=== PATIENT | male | born 1995 | race Caucasian/White ===

== ENCOUNTER 2024-12-28 12:34 | Outpatient (OUT) | payer OTHER, SELFPAY ==
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
== END 2024-12-28 12:35 | disposition home or self-care (01) ==
PROVIDERS: Visit Provider Anesthesiology
DX: M25.551 Pain in right hip (principal)
CPT/HCPCS: G0463

== ENCOUNTER 2025-03-31 13:04 | Outpatient (OUT) | payer OTHER, SELFPAY ==
--- OUTSIDE RECORDS SUMMARY | 2025-03-31 13:07 | XMS_ITS | Clinical Summary ---
Author Organization [facility] Address [address] [place] [id number] Care Team Providers Care Hydraulic Plumber Helper Name Role Phone SamanKimi puga Primary Care Provider [phone] Jeannie Velasquez DIRECTOR SALES.FUNDING ANALYST Unavailable [phone] Sue Rubio DIRECTOR SALES.FUNDING ANALYST Unavailable [phone] Allergies Active Allergy Reactions Criticality Noted Date Comments Ondansetron Hives 09/02/2024 Medications gabapentin (NEURONTIN) 300 mg capsuleIndicati ons:Chronic pain of right knee Take 1 capsule by mouth two times a day for 90 days. 180 capsule 09/23/2023 Active cloNIDine HCl (CATAPRES) 0.1 mg tablet Take 0.1 mg by mouth three times a day. Active Active Problems Problem Noted Date Diagnosed Date Severe opioid use disorder 12/17/201807/08 Closed fracture of ankle 11/24/2010 023 Sprain of carpal (joint) of wrist 07/12/2006 07/08/2023 Allergic rhinitis 01/16/2005 07/08/2023 Overview (07/08/2023): cause unspecified [id number] Inguinal hernia 10/25/2003 07/08/2023 Overview (07/08/2023): updated for 06/17 reg imo load Scrotal varices 10/25/2003 07/08/2023 Immunizations Immunization Administration Dates Next Due Haemophilus influenzae b (Hi b) vaccine, unspecified formulation 01/09/1996 diphtheria tetanus pertussis (DTaP) vaccine, unspecified formulation 12/16/2000,01/09/1996 diphtheria tetanus pertussis-Haemophilus influenzae b (DTP-Hib) vaccine (TETRAMUNE) 01/09/1996,03/25/1995,01/23/1995,11/23 hepatitis B (HepB) vaccine, 3-dose series, age 0 yr - 19 yr (ENGERIX B-PEDS, RECOMBIVAX HB-PEDS) 03/25/1995,1994,1994 human papillomavirus (HPV4) vaccine, quadrivalent (GARDASIL) 06/01/2011 measles mumps rubella (MMR) vaccine (M-M-R II, PRIORIX) 12/16/2000,09/11/1995 meningococcal (MenACWY-D) va ccine, quadrivalent (MENACTRA) 06/23/2009 poliovirus (IPV) vaccine, in activated (IPOL) 12/16/2000 poliovirus (OPV) vaccine, tr ivalent, live, oral (ORIMUNE) 03/25/1995,01/23/1995,1994 tetanus diphtheria pertussis (Tdap) vaccine, age 7+ yr (ADACEL, BOOSTRIX) 10/17/2021,06/01/2011 varicella (KARMEN) vaccine (VARIVAX) 06/01/2011, Social History Tobacco Use Types Packs/Day Years Used Date Smoking Tobacco: Some Days Smokeless Tobacco: Current Tobacco Cessation:Ready to Q uit: Not Asked; Counseling Given: Not Answered Comments:occasional Alcohol Use Standard Drinks/Week Comments Yes 0 (1 standard drink = 0.6 oz pur e alcohol) social [facility] Utilities Answer Date Recorded In the past 12 months has e [employer], gas, oil, or water [employer] threatened to shut off services in your home? No 2023 Social Connection and Isolat ion Panel [NHANES] Answer Date Recorded In a typical week, how many times do you talk on the phone with family, friends, or neighbors? More than three times a week 2023 How often do you get togethe r with friends or relatives? Three times a week 2023 How often do you attend chur ch or moravian services? Never 2023 Do you belong to any clubs o r organizations such as pentecostalism groups, unions, fraternal or athletic groups, or school groups? No 2023 How often do you attend meet ings of the clubs or organizations you belong to? Patient declined 2023 Are you , , di vorced, , never , or living with a partner? Never 2023 AUDIT-C Answer Date Recorded Q1: How often do you have a drink containing alcohol? Never 2023 Q2: How many drinks containi ng alcohol do you have on a typical day when you are drinking? Patient does not drink Q3: How often do you have si x or more drinks on one occasion? Never 2023 Overall Financial Resource Strain (CARDIA) Answe r Date Recorded How hard is it for you to pa y for the very basics like food, housing, medical care, and heating? Not hard at all 2023 [facility] [place] [facility] - Occupational Stress Questionnaire Answer Date Recorded Do you feel stress - tense, restless, nervous, or anxious, or unable to sleep at night because your mind is troubled all the time - these days? To some extent 2023 Exercise Vital Sign Answer Date Recorde d On average, how many days pe r week do you engage in moderate to strenuous exercise (like a brisk walk)? 4 days 2023 On average, how many minutes do you engage in exercise at this level? 60 min 2023 Hunger Vital Sign Answer Date Recorded Within the past 12 months, y ou worried that your food would run out before you got the money to buy more. Never true 09/21/19 24 Within the past 12 months, t he food you bought just didn't last and you didn't have money to get more. Never true 2023 PRAPARE - Transportation Answer Date Re corded In the past 12 months, has l ack of transportation kept you from medical appointments or from getting medications? No 09/03 In the past 12 months, has l ack of transportation kept you from meetings, work, or from getting things needed for daily living? No 2023 Housing Stability Vital Sign Answer Cm e Recorded In the last 12 months, was t here a time when you were not able to pay the mortgage or rent on time? No 2023 In the last 12 months, how many places have you lived? 1 2023 In the last 12 months, was t here a time when you did not have a steady place to sleep or slept in a custodial (including now)? No 2023 Area Deprivation Index Answer Date Freddie rded National Score (1-100), lower number is lower ri sk Not on file 05/21/2021 State Score (1-10), lower number is lower risk N ot on file 05/21/2021 Data from: https://www.neighborhoodatlas.medicine.[facility].edu/. Last address used for calculation Not on file 05/21/2021 Sex and Gender Information Value Date Recorded Sex Assigned at Not on file Legal Sex Male 8:08 AM EST Gender Identity Not on file Sexual Orientation Not on file Last Filed Vital Signs Vital Sign Reading Time Taken Comments Blood Pressure 123/58 09/02/2024 11:00 PM EST Pulse 92 09/02/2024 11:30 PM EST Temperature 37 C (98.6 F) 09/02/2024 7:28 PM EST Respiratory Rate 29 09/02/2024 11:30 PM EST Oxygen Saturation 97% 09/02/2024 11:30 PM EST Inhaled Oxygen Concentration - - Weight 77.1 kg (170 lb) 09/02/2024 7:28 PM EST Height 172.7 cm (5' 8 ) 09/02/2024 7:28 PM EST Body Mass Index 25.85 09/02/2024 7:28 PM EST Plan of Treatment Health Maintenance Due Date Last Done Comments Anxiety Screening 2012 Depression Screening 2012 HIV Screening 2012 Hepatitis C Screening 2012 Pneumococcal Vaccine (1 of 2 - PCV) 2013 Influenza Vaccine (#1) 2025 DTaP,Tdap,Td Vaccine (8 - Td or Tdap) 10/17/2031 10/17/2021, 06/01/2011, 12/16/2000, Additional history exists Hepatitis B Vaccine Completed 03/25/1995, 1994, 1994 Insurance [employer] Member Subscriber Plan / Payer (Ef fective 2022-Present) Name:HicksPineda Jeni Relation to Subscriber:Self Name:HicksPineda olmedo Payer ID:[id number] (NAIC) Group ID:[id number] Type:Medicaid Address: [place] [id number] [employer] Care Teams Hydraulic Plumber Helper Relationship Specialty Start Date End Date Kimi Davison DO [address] [place] [address] PCP - General Family Medicine 07/29/23 Jeannie Velasquez, DIRECTOR SALES.FUNDING ANALYST [address] [place] [address] Cloud Administrator Family Medicine 02/03/25 Sue Rubio, DIRECTOR SALES.FUNDING ANALYST [address] [place] [id number] Cloud Administrator Family [facility] 02/03/25
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
== END 2025-03-31 13:05 | disposition home or self-care (01) ==
LOC: PM 13:05
PROVIDERS: Visit Provider Nurse Practitioner
DX: S72.8X1D Other fracture of right femur, subsequent encounter for closed fracture with routine healing (principal); M89.8X5 Other specified disorders of bone, thigh; M79.651 Pain in right thigh; Z51.81 Encounter for therapeutic drug level monitoring
CPT/HCPCS: G0463

== ENCOUNTER 2025-06-30 13:02 | Outpatient (OUT) | payer OTHER, SELFPAY ==
--- OUTSIDE RECORDS SUMMARY | 2025-06-30 13:18 | XMS_ITS | CCD ---
Author Organization [facility] Care Team Providers Care Oil Dispenser Name Role Phone PCP, NONE Primary Care Provider Performer Eugenia Gonzalez Primary Care Provider Kimi Davison DO Primary Care Provider HERNANDO BEAVER Attending Unavailable KIMI DAVISON Primary Care Unavailable KIMI DAVISON Attending Unavailable EUGENIA GONZALEZ Primary Care Unavailable LINDA, INDIGO Referring Unavailable EUGENIA GONZALEZ Primary Care Unavailable SELF, SELF Referring Unavailable CODEY, P. RAMONA Attending Unavailable SELF, SELF Primary Care Unavailable SELF, SELF Referring Unavailable CODEY, P. RAMONA Attending Unavailable SELF, SELF Primary Care Unavailable SELF, SELF Referring Unavailable SELF, SELF Primary Care Unavailable CODEY, P. RAMONA Attending Unavailable SELF, SELF Referring Unavailable SELF, SELF Primary Care Unavailable CODEY, P. RAMONA Attending Unavailable SELF, SELF Primary Care Unavailable CODEY, P. RAMONA Attending Unavailable SELF, SELF Referring Unavailable CODEY, P. RAMONA Attending Unavailable SELF, SELF Primary Care Unavailable SELF, SELF Referring Unavailable CODEY, P. RAMONA Attending Unavailable SELF, SELF Referring Unavailable SELF, SELF Primary Care Unavailable CODEY, P. RAMONA Attending Unavailable SELF, SELF Referring Unavailable SELF, SELF Primary Care Unavailable Unavailable Primary Care Provider Unavailabl e Unavailable Primary Care Provider Unavailabl e Unavailable Primary Care Provider Unavailabl e DETORE, ROBERTO W Admitting Unavailable DETOREROBERTO Attending Unavailable RUSHING, TONIE P Referring Unavailable Generic Provider MD, No Assigned Pcp Primary Car e Provider Unavailable RUSHING, TONIE P Admitting Unavailable LANDEN ROBLES Attending Unavailable TALBOO-DONALD, ELIZABET L Attending Unavail able TONIE BLANKENSHIP Referring Unavailable KIMI DAVISON Primary Care Unavailable YUE SINGH JR Attending Unavailable DAHIANA JOHNSON Attending Unavailable PROVIDER, UNKNOWN Admitting Unavailable BILLY FERNANDES Attending Unavailable PROVIDER, UNKNOWN Admitting Unavailable NO PCP, NO PCP Primary Care Unavailable DAVID BATISTA Attending Unav sharronable Christie MCGILL, Rachell White Attending Unavaila ble Sara II DO, Michael Freitas Attending Unava ilable Angeline ANGEL, Carlos Kern Attending Unavailable GENERIC PROVIDER, NO ASSIGNED PCP Primary Care Unavailable GENERIC PROVIDER, NO ASSIGNED PCP Primary Care Unavailable GENERIC PROVIDER, NO ASSIGNED PCP Primary Care Unavailable Olmedo SMOOTH-ROMELIA, Valdo Primary Care Provider OLMEDO VALDO Attending Unavailable OLMEDO, VALDO Primary Care Unavailable OLMEDO, VALDO Attending Unavailable OLMEDO, VALDO Referring Unavailable OLMEDO, VALDO Primary Care Unavailable NO PCP, NO PCP Primary Care Unavailable BRIGIDO POWELL Attending Unavailable NO PCP, NO PCP Primary Care Unavailable CHERYL AGUILAR Attending Unavailable OLMEDO, VALDO Primary Care Unavailable KATHI CHACON Attending Unavailable OLMEDO, VALDO Primary Care Unavailable GILDA ROQUE Attending Unavailable Allergies Allergy ClassificationReported Allergen(s)Allergy TypeDate of OnsetReaction(s) Facility (7 sources)Ondansetron; Translations: [ONDANSETRON HCL]Drug [id number] [facility] Work Phone: (14 sources)Ondansetron; Translations: [ONDANSETRON]Drug [id number] [facility] Other [facility] RepositoryNEGATED: Highlighted row has been ruled out! (1 source)natural latex rubber; Translations: [LATEX, NATURAL RUBBER]Drug allergy (disorder)[facility] NEGATED: Highlighted row has been ruled out! (1 source)No IV Contrast Allergy.; Translations: [IV Dye, Iodine Containing]Drug allergy (disorder)[facility] Medications Current Medications MedicationDrug Class(es)DatesSig (Normalized)Sig (Original)acetaminophen 500 mg oral tablet (20 sources)Start: 02-25-2025 End: 70-39-4042svtx 2 tablets by mouth every six hours as needed for pain acetaminophen (TYLENOL EXTRA STRENGTH) 500 mg tablet Indications: Hx of fracture of femur , Muscle spasm of right leg Take 2 tablets (1,000 mg total) by mouth every 6 (six) hours as needed for pain. 100 tablet 4 04/29/2025 ActiveStart: 08-23-2024 End: 13-62-8890pqiw 2 tablets by mouth every six hours for painacetaminophen (Tylenol) 325 mg tablet Indications: Pain of right hip , Pain of right thigh Take 2 tablets (650 mg) by mouth every 6 hours if needed for mild pain (1 - 3) or fever (temp greater than 38.0 C) for up to 10 days. 08/23/2024 09/02/2024 ActiveStart: 08-23-2024 End: 78-74-3713tumq 975 mg by mouth once as needed for lnac761 mg, oral, Once, On 08/23/24 at 0700, For 1 dose, If ordered PRN for pain, nurse is permitted to administer this medication for higher pain scores based on patient preference? YesStart: 89-27-4019nsbw 650 mg by mouth every four hours as needed acetaminophen (Tylenol) oral liquid 650 mgStart: 70-72-5814pqjn 1 tablet by mouth every six rvxli020 mg, oral, Every 6 hours, First dose on 08/09/24 at 1800, If ordered PRN for pain, nurse is permitted to administer this medication for higher pain scores based on patient preference? YesStart: 00-19-1751dwzn 3 tablets by mouth every six hoursacetaminophen (Tylenol) 325 mg tablet Indications: Traumatic closed displaced fracture of shaft of femur, right, initial encounter Take 3 tablets (975 mg) by mouth every 6 hours. 08/08/2024 ActiveStart: 07-30-2024 End: 50-05-6514Fgzxh: 07-29-2024 End: 97-04-5775Zawze: 07-29-2024 End: 57-34-6697cqnhogzb hydroxide 80 mg/ml / magnesium hydroxide 80 mg/ml / simethicone 8 mg/ml oral suspension (1 source)Start: 47-89-7051nuve 30 mL by mouth every six hours as ralrlo65 mL, oral, Every 6 hours PRN, indigestion, heartburn, Dyspepsia, Starting on 08/09/24 at 1855benzoyl peroxide 0.05 mg/mg / clindamycin 0.01 mg/mg topical gel (5 sources)Lincosamide AntibacterialStart: 53-66-8817vtzcecuupjf-benzoyl peroxide (BENZACLIN) gel Apply topically 2 times daily. Apply thin layer to affe cted area twice daily for acne 35 g 2 12/27/2011 Activebisacodyl 5 mg delayed release oral tablet (1 source)Stimulant LaxativeStart: 13-29-3079jrdv 1 tablet by mouth every twenty-four hours as djicdk71 mg, oral, Daily PRN, constipation, first line, Starting on 08/09/24 at 1855, 1st line for treatment of constipation - contact provider if no bowel movement in past 48 hours. Do not crush, chew,or split.buprenorphine 8 mg / naloxone 2 mg sublingual film (9 sources)Partial Opioid Agonist, Opioid AntagonistStart: 93-12-8215COHQABND 8- 2 mg film Dissolve 1 Film on tongue in the morning. 02/18/2025 Activecalcium carbonate 1250 mg / cholecalciferol 200 unt oral tablet (4 sources)Vitamin DStart: 97-19-7150fvls 1 tablet by mouth twice daily1 tablet, oral, 2 times daily, First dose on 08/09/24 at 2100Start: 08-08-2024 End: 36-97-2778gjuc 1 tablet by mouth twice dailycalcium carbonate-vitamin D3 (Oscal-500) 500 mg-10 mcg (400 unit) tablet Indications: Traumatic closed displaced fracture of shaft of femur, right, initial encounter Take 1 tablet by mouth 2 times a day. 08/08/2024 09/19/2024 ActiveStart: 08-08-2024 End: 15-34-3259mslRDZmun hydrochloride 0.1 mg oral tablet (20 sources)Central alpha-2 Adrenergic AgonistStart: 03-03-2024 End: 91-12-6594ahts 1 tablet by mouth three times dailycloNIDine (CATAPRES) 0.1 mg tablet Indications: Anxiety Take 1 tablet (0.1 mg total) by mouth 3 (three) times a day. 90 tablet 3 02/25/2025 Activecyproheptadine hydrochloride 4 mg oral tablet (5 sources)Start: 51-00-1631iwit 1 tablet by mouth every eight hours as needed for headacheCYPROHEPTADINE HCL 4 MG OR TABS 1 po q 8 hours prn headaches 30 0 09/10/2006 Activedextromethorphan hydrobromide 3 mg/ml / promethazine hydrochloride 1.25 mg/ml oral solution (2 sources)Phenothiazine, Uncompetitive N-odhntc-E-aspartate Receptor Antagonist, Sigma-1 AgonistStart: 07-10-2024 End: 49-03-9893dgxwztmwzjkx-dextromethorphan (PROMETHAZINE-DM) 6.25-15 MG/5ML syrup Take 5 mL by mouth every 4 hours as needed for Cough. 120 mL 07/10/2024 08/09/2024 Activedicyclomine hydrochloride 20 mg oral tablet (4 sources)AnticholinergicStart: 07-10-2024 End: 32-06-3914akfw 1 tablet by mouth four times dailydicyclomine (BENTYL) 20 MG tablet Take 1 Tablet by mouth 4 times daily for 7 days. 28 Tablet 07/10/2024 Activedocusate sodium 100 mg oral capsule (7 sources)Start: 07-30-2024 End: 45-15-3583diwo 1 capsule by mouth twice dailydocusate sodium (Colace) 100 mg capsule Indications: Traumatic closed displaced fracture of shaft of femur, right, initial encounter Take 1 capsule (100 mg) by mouth 2 times a day. 60 capsule 08/17/2024 11:12 AM EST 08/17/2024 09/16/2024 Activedoxylamine succinate 25 mg oral tablet (3 sources)Start: 58-52-8721hsci 1 tablet by mouth once daily as needed for sleepdoxylamine (UNISOM) 25 mg tablet Indications: Nausea , Insomnia, unspecified type Take 1 tablet (25mg total) by mouth nightly as needed for sleep. 90 tablet 1 04/29/2025 Activefluticasone propionate 0.05 mg/actuat metered dose nasal spray (5 sources)CorticosteroidStart: 90-58-3660rphz 1 spray(s) nasal route once daily FLONASE 50 MCG/ACT NA SUSP 1 spray each nostrila q day as directed 1 1 09/10/2006 Activegabapentin 600 mg oral tablet (20 sources)Anti-epileptic AgentStart: 50-76-1493pubn 1 tablet by mouth three times dailygabapentin (NEURONTIN) 600 mg tablet Take 1 tablet (600 mg total) by mouth 3 (three) times a day. 11/25/2024 ActiveStart: 85-22-0345aeuc 1 capsule by mouth three times mg, oral, 3 times daily, First dose on 08/09/24 at 1730, Capsules may be opened and sprinkled on food (eg, applesauce, orange juice, puddingStart: 07-10-2024 End: 23-27-8719ojpf 1 capsule by mouth three times dailygabapentin (NEURONTIN) 300 MG capsule Take 1 Capsule by mouth 3 times daily for 30 days. 90 Capsule 07/10/2024 ActiveStart: 09-23-2023 End: 04-12-2391kdiq 2 capsules by mouth three times dailygabapentin (Neurontin) 300 mg capsule Indications: Traumatic closed displaced fracture of shaft of f emur, right, initial encounter Take 2 capsules (600 mg) by mouth 3 times a day for 7 days. 21 capsule 08/17/2024 11:12 AM EST 08/17/2024 ActiveStart: 07-05-2023 End: 92-42-4472catm 1 capsule by mouth twice dailygabapentin (NEURONTIN) 300 mg capsule Indications: Chronic pain of right knee Take 1 capsule by mouth two times a day for 90 days. 180 capsule 0 07/08/2023 10/06/2023 ActiveComment on above:Take 1 capsule by mouth two times a day for 90 days.Take 1 capsule by mouth two times a day for 7 days.12 hr guaiFENesin 600 mg extended release oral tablet (1 source)Start: 34-78-6044heww 600 mg by mouth twice daily as needed for cough 600 mg, oral, 2 times daily PRN, cough, Starting on 08/15/24 at 2221, Administer with plenty offluids to ensure proper action. Do not crush, chew, or split.ibuprofen 800 mg oral tablet (20 sources)Nonsteroidal Anti-inflammatory DrugStart: 02-25-2025 End: 15-70-0195nief 1 tablet by mouth every eight hours as needed for pain ibuprofen (MOTRIN) 800 mg tablet Indications: Hx of fracture of femur , Muscle spasm of right leg Take 1 tablet (800 mg total) by mouth every 8 (eight) hours as needed for pain. 90 tablet 4 04/29/2025 ActiveStart: 03-61-5282gqoi 3 tablets by mouth every six hoursibuprofen 200 mg tablet Indications: Pain of right hip , Pain of right thigh Take 3 tablets (600 mg) by mouth every 6 hours. 08/23/2024 ActiveStart: 08-04-2024 End: 74-00-4814wldu 600 mg by mouth every six hoursStart: 05-18-2022 End: 40-53-6166vegc 1 tablet by mouth every six hours for painibuprofen 600 mg tablet Indications: Traumatic closed displaced fracture of shaft of femur, right, initial encounter Take 1 tablet (600 mg) by mouth every 6 hours if needed for mild pain (1 - 3). 30 tablet 08/17/2024 11:12 AM EST 08/17/2024 Active lidocaine 0.04 mg/mg medicated patch (4 sources)Antiarrhythmic, Amide Local AnestheticStart: 21-90-3696ldswo 1 dose transdermal route once daily1 patch, transdermal, Administer over 12 Hours, Daily, First dose on 08/09/24 at 1730, Apply to affected area. Patch will remain on for 12 hours, then removed for [address] patch directly over any surgical incisions or wounds.Start: 07-31-2024 End: 65-59-0880jnyezteso 4 % patch Indications: Traumatic closed displaced fracture of shaft of femur, right, initial encounter Place 1 patch over 12 hours on the skin once daily. Remove & discard patch within 12 hours or as directed by . 08/09/2024 08/18/2024 Discontinued (Stop Taking at Discharge)loratadine 10 mg oral tablet (10 sources)Start: 87-58-6434zhww 1 tablet by mouth once dailyloratadine (LORADAMED) 10 MG tablet Take 1 Tablet by mouth daily. 30 Tablet 3 09/20/2019 Activementhol 100 mg/ml / methyl salicylate 150 mg/ml topical cream (4 sources)Start: 08-08-2024 End: 20-15-2381owrwdv salicylate-menthol (Bengay) 15-10 % greaseless cream Indications: Traumatic closed displacedfracture of shaft of femur, right, initial encounter Apply 1 Application topically 3 times a day asneeded for muscle/joint pain. 08/08/2024 08/18/2024 Discontinued (Stop Taking at Discharge) Start: 23-10-8432cxzfczencxwdp 750 mg oral tablet (13 sources)Muscle RelaxantStart: 04-29-2025 End: 41-77-9324czztgfirxrpnK (ROBAXIN) 750 mg tablet Indications: Hx of fracture of femur , Muscle spasm of right leg Take 1 tablet (750 mg total) by mouth in the morning and 1 tablet (750 mg total) at noon and 1 tablet (750 mg total) before bedtime. Do all this for 30 days. 90 tablet 3 04/29/2025 05/29/2025 Activ eStart: 02-25-2025 End: 01-00-1310bavyagyeexqqW (ROBAXIN) 750 mg tablet Take 1 tablet (750 mg total) by mouth in the morning and 1 tablet (750 mg total) at noon and 1 tablet (750 mg total) before bedtime. Do all this for 30 days. 90 tablet 2 02/25/2025 03/27/2025 ActiveStart: 56-80-4105jpnc 2 tablets by mouth every eight hours methocarbamol (Robaxin) 500 mg tablet Indications: Traumatic closed displaced fracture of shaft of femur, right, initial encounter Take 2 tablets (1,000 mg) by mouth every 8 hours. 60 tablet 08/17/2024 11:12 AM EST 08/17/2024 Active Start: 68-63-1493fzhh 1000 mg by mouth every eight hours1,000 mg, oral, Every 8 hours scheduled, First dose on 08/09/24 at 1730Start: 08-08-2024 End: 26-23-5229jqjq 1 tablet by mouth every eight hoursmethocarbamol 1,000 mg tablet Indications: Traumatic closed displaced fracture of shaft of femur, ri ght, initial encounter Take 1,000 mg by mouth every 8 hours. 08/08/2024 08/17/2024 DiscontinuedStart: 52-32-8146Auvev: 07-29-2024 End: 34-62-9731osbe 1000 mg intravenously every eight hoursminoxidil 50 mg/ml topical foam (5 sources)Arteriolar VasodilatorStart: 00-20-7803Edeoqvadl (ROGAINE MENS) 5 % FOAM Apply 1 Film externally. Apply to scalp twice daily 60 g 2 06/06/2011 ActiveNaloxone (7 sources)Opioid AntagonistStart: 60-52-2671Lxswr: 08-08-2024 End: 06-84-0096uujpjfcx (Narcan) 0.4 mg/mL injection Indications: Traumatic closed displaced fracture of shaft of femur, right, initial encounter Infuse 0.5 mL (0.2 mg) into a venous catheter every 5 minutes if needed for respiratory depression. 1 mL 08/08/2024 08/18/2024 Discontinued (Stop Taking at Discharge) Start: 08-08-2024 End: 44-69-5969txhfsaab (Narcan) 0.4 mg/mL injection Indications: Traumatic closed displaced fracture of shaft of femur, right, initial encounter Infuse 0.5 mL (0.2 mg) into a venous catheter if needed for respiratory depression (Once PRN patient is unarousable, and respiratory rate less than 8). 1 mL 08/08/2024 1 10/19/2023 Discontinued (Stop Taking at Discharge)Start: 40-31-7450Hlced: 89-90-6630Eknpv: hr nicotine 0.583 mg/hr transdermal system (6 sources)Cholinergic Nicotinic AgonistStart: 38-89-9784kdyid 1 dose transdermal route once daily1 patch, transdermal, Administer over 24 Hours, Daily, First dose on 08/09/24 at 1730Start: 08-09-2024 End: 95-25-2509uxfpy 1 dose transdermal route every twenty-four hoursnicotine (Nicoderm CQ) 14 mg/24 hr patch Indications: Traumatic closed displaced fracture of shaft of femur, right, initial encounter Place 1 patch over 24 hours on the skin once daily for 7 days. 14patch 08/17/2024 11:12 AM EST 08/17/2024 08/31/2024 ActiveStart: 56-52-2679Amnzj: 23-72-0838pzblnkdkfrl 1 mg/ml ophthalmic solution (5 sources)Histamine-1 Receptor InhibitorStart: 07-86-8631ysux 1 drop(s) into the eye(s) twice dailyPATANOL 0.1 % OP SOLN 1 drop bid each eye 1 bottle 1 01/16/2007 ActiveoxyCODONE hydrochloride 5 mg oral tablet (20 sources)Opioid AgonistStart: 08-28-2024 End: 93-88-5073uvyn 1 dose by mouth once10 mg, Oral, Once, 1 dose, On Sat08/28/24 at 0932Start: 08-24-2024 End: 96-84-9471qwzc 1 tablet by mouth every six hours in the evening for pain oxyCODONE (Roxicodone) 5 mg immediate release tablet Indications: Traumatic closed displaced fracture of shaft of femur, right, initial encounter Take 1 tablet (5 mg) by mouth every 6 hours if neededfor severe pain (7 - 10) for up to 7 days. 28 tablet 08/24/2024 4:19 PM EST 08/24/2024 08/31/2024 ActiveStart: 08-17-2024 End: 96-33-7311ellh 1 tablet by mouth every six hours for painoxyCODONE (Roxicodone) 10 mg immediate release tablet Indications: Traumatic closed displaced fracture of shaft of femur, right, initial encounter Take 1 tablet (10 mg) by mouth every 6 hours if needed for moderate pain (4 - 6) for up to 7 days. 28 tablet 08/17/2024 08/24/2024 Discontinued (Therapycompleted)Start: 08-09-2024 Start: 08-08-2024 End: 72-31-7829sihu 0.5 tablet by mouth every four hours for painoxyCODONE (Roxicodone) 15 mg immediate release tablet Indications: Traumatic closed displaced fracture of shaft of femur, right, initial encounter Take 0.5 tablets (7.5 mg) by mouth every 4 hours if needed for moderate pain (4 - 6) for up to 15 doses. 15 tablet 08/08/2024 08/18/2024 Discontinued (Stop Taking at Discharge) Start: 08-08-2024 End: 92-84-8398lclz 1 tablet by mouth twice daily as needed for painoxyCODONE (Roxicodone) 10 mg immediate release tablet Indications: Traumatic closed displaced fracture of shaft of femur, right, initial encounter Take 1 tablet (10 mg) by mouth 2 times a day as needed for moderate pain (4 - 6) for up to 14 doses. 14 tablet 08/08/2024 08/17/2024 DiscontinuedStart: 37-52-4821eppp 10 mg by mouth every four hours as needed for pain10 mg, oral, Every 4 hours PRN, pain severe (7-10), first line, Starting on 08/09/24 at 1709, Indications: pain Start: 08-02-2024 End: 23-22-9777ocyu 1 tablet by mouth every four hours for painoxyCODONE (Roxicodone) 10 mg immediate release tablet Indications: Traumatic closed displaced fracture of shaft of femur, right, initial encounter Take 1 tablet (10 mg) by mouth every 4 hours if needed for moderate pain (4 - 6) for up to 15 doses. 15 tablet 08/08/2024 08/18/2024 Discontinued (Stop Taking at Discharge) Start: 08-02-2024 End: 14-78-7492uaax 5 mg by mouth every four hoursStart: 07-29-2024 End: 02-84-4959ebgm 10 mg by mouth every four hours as needed End: 04-24-8648zciBSHMTS (OxyCONTIN) 10 mg 12 hr tablet Take by mouth every 12 (twelve) hours. 5 mg tabs filled 09/09/2024 total 28. Bottle empty 02/25/2025 Discontinued (Therapy completed)pantoprazole 40 mg delayed release oral tablet (11 sources)Proton Pump InhibitorStart: 02-25-2025 End: 19-12-0041hkps 1 tablet by mouth in the morning, then take 1 tablet by mouth at bedtimepantoprazole (PROTONIX) 40 mg EC tablet Indications: Gastroesophageal reflux disease, unspecified whether esophagitis present Take 1 tablet (40 mg total) by mouth in the morning and 1 tablet (40 mg total) before bedtime. Do all this for 30 days. 60 tablet 04/29/2025 05/29/2025 Active polyethylene glycol 3350 50397 mg powder for oral solution (7 sources)Osmotic LaxativeStart: 78-56-2274rafx 17 g by mouth every twenty-four hours as enyiye10 g, oral, Daily PRN, constipation, Starting on 08/09/24 at 1855, Bowel Regimen - for prevention of constipation.Start: 26-85-466613 g, oral, 2 times daily, First dose on 08/09/24 at 2100Start: 07-28-2024 End: 28-04-6914vuybjtawdqlq glycol (Glycolax, Miralax) 17 gram packet Indications: Traumatic closed displaced fracture of shaft of femur, right, initial encounter Take 17 g by mouth 2 times a day. 08/08/2024 Active promethazine hydrochloride 1.25 mg/ml oral solution (11 sources)PhenothiazineStart: 04-29-2025 End: 90-78-6312over 12.5 mg by mouth every six hours as needed for nausea and vomiting and nausea and nauseapromethazine (PHENERGAN) 6.25 mg/5 mL syrup Indications: Nausea Take 10 mL (12.5 mg total) by mouthevery 6 (six) hours as needed for nausea or vomiting. 473 mL 3 06/15/2025 ActiveStart: 04-29-2025 End: 49-52-4800waqt 1 tablet by mouth every six hours as needed for nausea and vomitingpromethazine (PHENERGAN) 25 mg tablet Take 1 tablet (25 mg total) by mouth every 6 (six) hours as needed for nausea or vomiting. 30 tablet 4 04/29/2025 04/29/2025 Discontinued (Alternate therapy)Start: 08-08-2024 End: 20-09-9519sybk 1 tablet by mouth every six hours for nauseapromethazine (Phenergan) 12.5 mg tablet Indications: Traumatic closed displaced fracture of shaft of femur, right, initial encounter Take 1 tablet (12.5 mg) by mouth every 6 hours if needed for nausea or vomiting. 08/08/2024 08/18/2024 Discontinued (Stop Taking at Discharge)Start: 56-84-4121bbfc 1 tablet by mouth every six hours as smubxs55.5 mg, oral, Every 6 hours PRN, nausea/vomiting, first line, Starting on 08/09/24 at 1709Start: 07-10-2024 End: 52-55-2813jdhr 1 tablet by mouth three times daily as needed for nausea promethazine (PHENERGAN) 25 MG tablet Take 1 Tablet by mouth 3 times daily as needed for Nausea. 16Tablet 07/10/2024 07/10/2024 DiscontinuedStart: 04-18-2024 End: 09-24-9118isfb 1 tablet by mouth every six hours as needed for nausea and vomitingpromethazine (PHENERGAN) 25 mg tablet Take 1 tablet (25 mg total) by mouth every 6 (six) hours as needed for nausea or vomiting. 15 tablet 04/18/2024 02/25/2025 Discontinued (Alternate therapy)sennosides, senior care 8.6 mg oral tablet (4 sources)Start: 07-30-2024 End: 95-41-5525wlao 1 tablet by mouth twice daily8.6 mg (1 tablet), oral, 2 times daily, First dose on 08/09/24 at 2100traZODone hydrochloride 100 mg oral tablet (20 sources)Serotonin Reuptake InhibitorStart: 02-25-2025 End: 92-57-2919bpfh 1 tablet by mouth once dailytraZODone (DESYREL) 100 mg tablet Indications: Insomnia, unspecified type Take 1 tablet (100 mg total) by mouth nightly. 90 tablet 2 04/29/2025 ActiveStart: 07-30-2024 End: 12-82-8954lryx 50 mg by mouth once daily50 mg, oral, Nightly, First dose on 08/09/24 at 2100Start: 07-10-2024 End: 57-90-4023niho 2 tablets by mouth once dailytraZODone (DESYREL) 50 mg tablet Take 2 tablets (100 mg total) by mouth nightly. 07/10/2024 02/25/2025 Discontinued (Therapy completed)Start: 07-10-2024 End: 19-07-8687wcms 0.5 tablet by mouth at bedtimetrazodone (DESYREL) 50 mg tablet Take 0.5 Tablets by mouth at bedtime. 15 Tablet 07/10/2024 ActiveStart: 07-05-2023 End: 66-16-7490tgre 1 tablet by mouth at bedtime as neededtraZODone (DESYREL) 100 mg tablet Indications: Difficulty sleeping Take 1 tablet by mouth at bedtime as needed. 90 tablet 3 07/08/2023 07/07/2024 Active End: 84-84-8082tqfOGZkgv (DESYREL) 50 mg tablet Take 25 mg by mouth as needed for sleep. 04/29/2025 Discontinued (Duplicate Listing)Comment on above:Take 1 tablet by mouth at bedtime as needed.vitamin b6 50 mg oral tablet (3 sources)Start: 01-51-0682zrme 1 tablet by mouth in the morningpyridoxine, vitamin B6, (B-6) 50 mg tablet Indications: Nausea Take 1 tablet (50 mg total) by mouthin the morning. 90 tablet 3 04/29/2025 Active (1 source)Start: 08-08-2024 (4 sources)Start: 54-30-0022kekk 12.5 mg by mouth every four hours as needed Start: 08-03-2024 End: 12-46-3296jnpq 15 mg by mouth every four hours as neededStart: 07-30-2024 End: 29-93-5593Rhpoy: 07-30-2024 End: 05-64-0062qjua 12.5 mg intravenously every six hours as needed Completed/Discontinued Medications MedicationDrug Class(es)DatesSig (Normalized)Sig (Original)amitriptyline hydrochloride 50 mg oral tablet (2 sources)Tricyclic AntidepressantStart: 08-05-2024 End: 47-04-1235Gmmgy: 07-30-2024 End: 49-61-2712yvtskabkxv 6 mg / menthol 10 mg oral lozenge (1 source)Standardized Chemical AllergenStart: 04-18-2024 End: 44-31-0935ajvs 1 tablet by mouth every two hours as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 mg oral tablet, 0.1 mg= 1 tabs, Oral, TID gabapentin 300 mg oral capsule, 300 mg= 1 caps, Oral, TID traZODone 50 mg oral tablet, 50 mg= 1 tabs, Oral, HS (at bedtime), PRN Allergies ondansetron (Hives) Social History Alcohol Current, Beer, 1-2 times per month Other Substance Abuse Denies All Tobacco 10 or more cigarettes (1/2 pack or more)/day in last 30 days Use:. E-Cigarettes Diagnostic Results Electronically signed by Michael Ruiz II, DO 09/14/24 09:05 [id number] NOTEHNO ID: [id number] Author: OSMAN BATISTA MA Service: ? Author Type: Restaurant Attendant Type: ED Notes Filed: 09/02/2024 21:58 Note Text: Return trip to [facility] set up with [facility] NOTE HNO ID: [id number] Author: IRENE LI RN Service: ? Author Type: Registered Nurse Type: ED Notes Filed: 09/02/2024 22:03 Note Text: Report to AFSANEH Morrissey at [facility]. Pt is okay to return for treatment there as long as he is medically cleared. Pt is alert to voice, answering questions appropriately. IV removed at patient's request. Will attempt for urine sample. Food and drink provided at patient request.[facility] NOTE HNO ID: [id number] Author: IRENE LI RN Service: ? Author Type: Registered Nurse Type: ED Notes Filed: 09/02/2024 19:33 Note Text: OD on fentanyl from [facility], was being dropped off by friends, Od'd in the parking lot, was given narcan by bystanders and then 911 was called. Pt has not required more narcan since EMS received him.[facility] NOTEHNO ID: [id number] Author: SONYA LAM RN Service: ? Author Type: Registered Nurse Type: ED Notes Filed: 09/02/2024 19:25 Note Text: Bed: ED-04 Expected date: 09/02/24 Expected time: 7:13 PM Means of arrival: [facility] Comments:[facility] PROV NOTEon [id number] PROV NOTEHNO ID: [id number] Author: YUE SINGH JR, MD Service: Wound Care Team Author Type: Physician Type: ED Provider Notes Filed: 09/02/2024 22:04 Note Text: ED Provider Note Patient Name: Pineda Hicks : 1995 SERVICE DATE: 09/02/24 History Patient presents with: Overdose: OD on fentanyl from [facility], was being dropped off by friends, Od'd in the parking lot, was given narcan by bystanders and then 911 was called. Pt has not required more narcan since EMS received him. This patient is a 28-year-old male who presents to the ED after a fentanyl overdose. The patient states he had an appointment to be evaluated to [facility] for detox. The patient states he overdosed in the [facility] parking lot after being dropped off by friends. The patient received Narcan by bystanders and was transported to the ED by EMS. On admission to the ED the patient was awake and alert and has not required any additional Narcan. 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 No pertinent past medical history. History reviewed. No pertinent surgical history. No family history on file. Social History Tobacco Use Smoking status: Some Days Smokeless tobacco: Current Tobacco comments: occasional Vaping Use Vaping status: current everyday user Substances: Nicotine Devices: Refillable tank Substance and Sexual Activity Alcohol use: Yes Comment: social Drug use: Yes Types: Cocaine, Narcotics Sexual activity: Not on file ALLERGIES Allergen Reactions Ondansetron Hives Review of Systems HENT: Negative. Eyes: Negative. Respiratory: Negative. Cardiovascular: Negative. Gastrointestinal: Negative. Genitourinary: Negative. Musculoskeletal: Negative. Skin: Negative. Psychiatric/Behavioral: Negative. Physical Exam Vitals [09/02/241927] BP Pulse Temp Temp src Resp SpO2 Weight Height 119/65 79 37 ?C (98.6 ?F) Oral 16 97 % 77.1 kg (170 lb) 1.727 m (5' 8 ) Physical Exam Vitals and nursing note reviewed. Constitutional: Appearance: He is well-developed. HENT: Head: Normocephalic and atraumatic. Right Ear: External ear normal. Left Ear: External ear normal. Nose: Nose normal. Eyes: Conjunctiva/sclera: Conjunctivae normal. Pupils: Pupils are equal, round, and reactive to light. Cardiovascular: Rate and Rhythm: Normal rate and regular rhythm. Heart sounds: Normal heart sounds. Pulmonary: Effort: Pulmonary effort is normal. Breath sounds: Normal breath sounds. Abdominal: General: Bowel sounds are normal. Palpations: Abdomen is soft. Musculoskeletal: General: Normal range of motion. Cervical back: Normal range of motion and neck supple. Skin: General: Skin is warm and dry. Neurological: Mental Status: He is alert and oriented to person, place, and time. Psychiatric: Mood and Affect: Mood normal. Behavior: Behavior normal. Diagnostic Testing ED Labs Ordered and Reviewed - No data to display Procedures ED Course / Clinical Impression Clinical Impressions as of 09/02/24 2203 Accidental drug overdose, initial encounter MDM / Disposition / Plan MEDICAL DECISION MAKING Number and Complexity of Problems the patient presents after drug overdose. He is alert and cooperative now after Narcan. The complexity is moderate Differential Diagnosis: Includes unintentional drug overdose MDM Data External documents reviewed . My EKG interpretation: EKG-normal sinus rhythm normal EKG My CT interpretation: Not applicable My X-ray interpretation: The chest x-ray was unremarkable. My Ultrasound interpretation: Not applicable Tests considered but not ordered Decision rules/scores evaluated: Discussed with: Treatment and Disposition ED Course: The patient presents to the ED after a fentanyl overdose. The patient was scheduled for admission to [facility] for drug abuse. Upon arrival to [facility] the patient overdosed on fentanyl in the parking lot. Bystanders administered Narcan and EMS was called. The patient was transported to the ED for further workup and evaluation. He has not required more Narcan. On admission the patient was awake and alert able to give a coherent history. The chest x-ray was negative. The patient is now awake and alert and will be discharged to [facility]. Social determinants of health that impact treatment or disposition Shared decision making: Code status: Discussion with regarding code status. Code status determined as Full Management Radiology Reports XR CHEST 1V FRONTAL PORT Final Result IMPRESSION: No acute radiographic abnormality Salesforce Developer: PRIYA Transcribe Date/Time: Sep 02 2024 8:09P Dictated by : MARNIE AYERS MD This examination was interpreted and the report reviewed and electronically signed by: MARNIE AYERS MD on Sep 02 2024 8:10PM EST Meds Given During Visit ED Medication Administration from 09/02/2024 1924 to 09/02/2024 2 (more content not included)...[facility] FRONTAL PORTon [id number] CHEST 1V FRONTAL PORT* * *Final Report* * * DATE OF EXAM: Sep 02 2024 8:02PM ASX 5376 - XR CHEST 1V FRONTAL PORT / PROCEDURE REASON: Other * * * * Physician Interpretation * * * * EXAMINATION: CHEST RADIOGRAPH (PORTABLE SINGLE VIEW AP) Exam Date/Time: 09/02/2024 8:02 PM CLINICAL HISTORY: Drug overdose MQ: XCPR_5 Comparison: Chest x-ray dated 10/17/2021 RESULT: Lines, tubes, and devices: None. Lungs and pleura: No focal consolidation or evidence of overt pulmonary edema. No discernible pleural effusion or pneumothorax. Cardiomediastinal silhouette: Stable cardiomediastinal silhouette. IMPRESSION: No acute radiographic abnormality Salesforce Developer: PRIYA Transcribe Date/Time: Sep 02 2024 8:09P Dictated by : MARNIE AYERS MD This examination was interpreted and the report reviewed and electronically signed by: MARNIE AYERS MD on Sep 02 2024 8:10PM EST [id number] Medical CenterED Provider Noteson [id number] Authentication Interface Message Text HISTORY OF PRESENT ILLNESS 08/28/2024, 8:44 AM. The history is provided by the Patient. Pineda Hicks is a 28 year old male with a PMHx of opioid dependence, insomnia, chronic right knee pain, traumatic right fibular fracture s/p ORIF and intramedullary nail on 07/29 per chart review presenting to the ED for right leg pain. He states that this pain has been severe over the past few days. He notes a traumatic right fibular fracture surgery on 07/29. He states that he completed inpatient PT and has been continuing outpatient PT three days a week, but is unable to attend currently due to moving residences. He states that he fell off of his porch 6 days ago and visited ED, where he was prescribed ibuprofen and tylenol. He states that followed up with Orthopedics 5 days ago, where imaging was completed without concern, and he was given a 7-day prescription for oxycodone. He states that he lost this prescription and has been unable to obtain a new one. He states he has been unable to sleep due to pain. He states that his last tylenol and ibuprofen dose was an hour before arriving at the ED. He endorses 9/10 right-sided leg pain from the hip downwards. REVIEW OF SYSTEMS Review of Systems Musculoskeletal: (+) Right Leg Pain PAST HISTORY Past Medical History: No pertinent past medical history. Past Surgical History: No pertinent past surgical history. Social History: Drug use: Past opioid dependence. Family History: No pertinent past family history. The patient's home medications have been reviewed. Allergies: No known drug allergies. PHYSICAL EXAM Vitals Recorded in This Encounter 08/28/2024 0840 BP: 165/94 Pulse: 93 Resp: 16 Temp: 98.5 ???F (36.9 ???C) Temp src: Oral SpO2: 97 % Pain Score: 8 Constitutional: Well developed, well nourished. Awake AND alert. No distress. Head: Atraumatic. Eyes: Pupils are equal. No injected conjunctivae. No scleral icterus. ENT: Mucous membranes are moist. Neck: Normal movement. Supple. Cardiovascular: Well perfused. Pulmonary/Chest: No evidence of respiratory distress. Speaks in full sentences. Musculoskeletal: Moves all four extremities. No deformities. Moving right leg back and forth throughout exam. Right knee and hip flexion and extension intact with mildly increased pain. Well healing incisions over right knee. No erythema, no drainage. Distal pulses and sensation intact. Skin: Skin is warm and dry. No rashes on exposed skin. Neurological: Alert, awake, and appropriate. Normal speech. No acute focal neurological deficits are appreciated. Psychiatric: Good eye contact. Appropriate in content/context. Normal affect. ED COURSE HIPAA: Verbal permission granted from patient to discuss case , including protected health information, in front of family / friends in room at the time of the evaluation. ED Medications: Medications oxyCODONE immediate release tablet (has no administration in time range) 9:05 AM - Patient informed on findings, given follow up instructions and expressed understanding, and was discharged home. Xray femur considered, but the patient has seen ortho and has had no new injuries since last xray, and is moving the leg throughout the encounter without any evidence of significant pain Social Determinants of Health that Impacted Management: Problems related to psychosocial circumstances, therefore did not give patient another opioid prescription due to abuse history Course, Imaging AND My Independent Interpretation of Results: ED Course as of 08/28/24 0944 SatAug 28, 2024 09 BP: 165/94 Normotensive - hemodynamically stable [ES] 0901 Temperature: 98.5 ???F (36.9 ???C) afebrile [ES] 0901 Heart Rate: 93 Regular rate [ES] ED Course User Index [ES] Dahiana Johnson MD MEDICAL DECISION MAKING Vital Signs: Reviewed the patient's vital signs. Nursing Notes: Reviewed and utilized the nursing notes. Employment Director: not needed - patient preferred language is Monegasque. Old Medical Records: The patient has a past medical history of opioid dependence, insomnia, chronic right knee pain, traumatic right fibular fracture s/p ORIF and intramedullary nail on 07/29. The patient was seen at ED on 08/23/24, prescribed ibuprofen and tylenol. The patient was seen by Orthopedics on 08/24, imaging completed, no concerns. Differential Diagnoses: Post-op pain, Post-op infection, Post-op DVT, Opioid dependence. Medical Decision Making: Pineda Hicks is a (more content not included)...Normal [employer] SystemNo Panel Informationon [id number] changes status post ORIF the right femoral fracture as detailed above without evidence of gross complication. MACRO: None Signed by: Uday Dash 08/23/2024 8:20 AM Dictation workstation: [id number] MMODALInterpreted By: Uday Dash and Nakamoto Kent STUDY: XR PELVIS 1-2 VIEWS; XR FEMUR RIGHT 2+ VIEWS; XR KNEE RIGHT 4+ VIEWS; ; 08/23/2024 7:42 am INDICATION: Signs/Symptoms:Fall from porch. Recent RT femur fx and repair.; Signs/Symptoms:Fall, recent surgery. COMPARISON: Right knee radiograph 07/28/2020. ACCESSION NUMBER(S): [id number]; [id number]; [id number] ORDERING CLINICIAN: MISTY ELDER FINDINGS: Postsurgical changes of ORIF of a comminuted right midshaft femoral fracture with a long retrograde intramedullary marita with proximal and distal locking screws. The hardware satisfactory without evidence of malalignment. Femoral neck pinning also noted with 3 screws having a satisfactory appearance. 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 No large effusion. Alignment normal. Surgical dino both at the level of the trochanters, the proximal femur, and knee. MMODALBrunswickUday MD - 08/23/2024 Interpreted By: Uday Dash and Nakamoto Kent STUDY: XR PELVIS 1-2 VIEWS; XR FEMUR RIGHT 2+ VIEWS; XR KNEE RIGHT 4+ VIEWS; ; 08/23/2024 7:42 am INDICATION: Signs/Symptoms:Fall from porch. Recent RT femur fx and repair.; Signs/Symptoms:Fall, recent surgery. COMPARISON: Right knee radiograph 07/28/2020. ACCESSION NUMBER(S): [id number]; [id number]; [id number] ORDERING CLINICIAN: MISTY ELDER FINDINGS: Postsurgical changes of ORIF of a comminuted right midshaft femoral fracture with a long retrograde intramedullary marita with proximal and distal locking screws. The hardware satisfactory without evidence of malalignment. Femoral neck pinning also noted with 3 screws having a satisfactory appearance. 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 No large effusion. Alignment normal. Surgical dino both at the level of the trochanters, the proximal femur, and knee. IMPRESSION: Postsurgical changes status post ORIF the right femoral fracture as detailed above without evidence of gross complication. MACRO: None Signed by: Uday Dash 08/23/2024 8:20 AM Dictation workstation: [id number] [facility] Work Phone: Radiology Study observation (narrative)[facility] Work Phone: No Panel InformationOrdered By: Uday Dash on [id number] Memorial Hospital Work Phone: XR FEMUR RIGHT 2+ VIEWSon [id number] FEMUR RIGHT 2+ VIEWSInterpreted By: Uday Dash and Nakamoto Kent STUDY: XR PELVIS 1-2 VIEWS; XR FEMUR RIGHT 2+ VIEWS; XR KNEE RIGHT 4+ VIEWS; ; 08/23/2024 7:42 am INDICATION: Signs/Symptoms:Fall from porch. Recent RT femur fx and repair.; Signs/Symptoms:Fall, recent surgery. COMPARISON: Right knee radiograph 07/28/2020. ACCESSION NUMBER(S): [id number]; [id number]; [id number] ORDERING CLINICIAN: MISTY ELDER FINDINGS: Postsurgical changes of ORIF of a comminuted right midshaft femoral fracture with a long retrograde intramedullary marita with proximal and distal locking screws. The hardware satisfactory without evidence of malalignment. Femoral neck pinning also noted with 3 screws having a satisfactory appearance. 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 No large effusion. Alignment normal. Surgical dino both at the level of the trochanters, the proximal femur, and knee. IMPRESSION: Postsurgical changes status post ORIF the right femoral fracture as detailed above without evidence of gross complication. MACRO: None Signed by: Uday Dash 08/23/2024 8:20 AM Dictation workstation: [id number] Hospitals Conneaut Medical CenterXR KNEE RIGHT 4+ VIEWSon [id number] KNEE RIGHT 4+ VIEWSInterpreted By: Uday Dash and Nakamoto Kent STUDY: XR PELVIS 1-2 VIEWS; XR FEMUR RIGHT 2+ VIEWS; XR KNEE RIGHT 4+ VIEWS; ; 08/23/2024 7:42 am INDICATION: Signs/Symptoms:Fall from porch. Recent RT femur fx and repair.; Signs/Symptoms:Fall, recent surgery. COMPARISON: Right knee radiograph 07/28/2020. ACCESSION NUMBER(S): [id number]; [id number]; [id number] ORDERING CLINICIAN: MISTY ELDER FINDINGS: Postsurgical changes of ORIF of a comminuted right midshaft femoral fracture with a long retrograde intramedullary marita with proximal and distal locking screws. The hardware satisfactory without evidence of malalignment. Femoral neck pinning also noted with 3 screws having a satisfactory appearance. 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 No large effusion. Alignment normal. Surgical dino both at the level of the trochanters, the proximal femur, and knee. IMPRESSION: Postsurgical changes status post ORIF the right femoral fracture as detailed above without evidence of gross complication. MACRO: None Signed by: Uday Dash 08/23/2024 8:20 AM Dictation workstation: [id number] Hospitals Conneaut Medical CenterXR PELVIS 1-2 VIEWSon [id number] PELVIS 1-2 VIEWSInterpreted By: Uday Dash and Nakamoto Kent STUDY: XR PELVIS 1-2 VIEWS; XR FEMUR RIGHT 2+ VIEWS; XR KNEE RIGHT 4+ VIEWS; ; 08/23/2024 7:42 am INDICATION: Signs/Symptoms:Fall from porch. Recent RT femur fx and repair.; Signs/Symptoms:Fall, recent surgery. COMPARISON: Right knee radiograph 07/28/2020. ACCESSION NUMBER(S): [id number]; [id number]; [id number] ORDERING CLINICIAN: MISTY ELDER FINDINGS: Postsurgical changes of ORIF of a comminuted right midshaft femoral fracture with a long retrograde intramedullary marita with proximal and distal locking screws. The hardware satisfactory without evidence of malalignment. Femoral neck pinning also noted with 3 screws having a satisfactory appearance. 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 No large effusion. Alignment normal. Surgical dino both at the level of the trochanters, the proximal femur, and knee. IMPRESSION: Postsurgical changes status post ORIF the right femoral fracture as detailed above without evidence of gross complication. MACRO: None Signed by: Uday Dash 08/23/2024 8:20 AM Dictation workstation: [id number] HospitalBasic metabolic 2000 panelon 24-31-5921Afpyu gap [Moles/Vol]11 mmol/L10 - 20 mmol/[facility] Medical CenterCalcium [Mass/Vol]8.9 mg/dL8.6 - 10.3 mg/dLUnGreene Memorial HospitalChloride [Moles/Vol]105 mmol/L98 - 107 mmol/[facility] Medical CenterCO2 [Moles/Vol]29 mmol/L21 - 32 mmol/L [facility] HospitalCreatinine [Mass/Vol]0.67 mg/dL0.50 - 1.30 mg/dLUnGreene Memorial HospitaleGFR- PINFUniCleveland Clinic Lutheran HospitalComment on above:Calculations of estimated GFR are performed using the 2020 CKD-EPI Study Refit equation without therace variable for the IDMS- Traceable creatinine methods. https://jasn.asnjournals.org/content/early//ASN.0270749011 Glucose [Mass/Vol]92 mg/dL74 - 99 mg/dLUnGreene Memorial Hospital Interpretation and review of laboratory resultsNoFlower HospitalPotassium [Moles/Vol]3.8 mmol/L3.5 - 5.3 mmol/[facility] Medical CenterSodium [Moles/Vol]141 mmol/L136 - 145 mmol/[facility] Medical CenterUrea nitrogen [Mass/Vol]13 mg/dL6 - 23 mg/dLUnGreene Memorial HospitalUnGreene Memorial HospitalAnion gap [Moles/Vol]11 mmol/LNormal 10-20UnTriHealth Good Samaritan HospitalComment on above:Performed By: #### 07987-0 #### NADYA Morocho ([id number]) [facility] (TR[facility]) [address] [place], [place] [address]Bbovuel [Mass/Vol]8.9 mg/dLNormal8.6-10.3[facility] Warren HospitalComment on above:Performed By: #### 17717-9 #### NADYA ESTRADA-BOMEISL L ([id number]) [facility] ([facility]) [address] [place], [place] [address]Xwhtwvxm [Moles/Vol]105 mmol/ZKvaehg28-993OqrtiemkhuTriHealth Good Samaritan HospitalComment on above:Performed By: #### 04482-0 #### NADYA ESTRADA-BOMEISL L ([id number]) [facility] ([facility]) [address], [place] [address]RO8 [Moles/Vol]29 mmol/JDtrese31-09CbsizzvsniMercy Health St. Joseph Warren HospitalComment on above:Performed By: #### 02617-5 #### NADYA ESTRADA-BOMEISL L ([id number]) [facility] ([facility]) [address], [place] [address]Xgeqmlmxst [Mass/Vol]0.67 mg/dLNormal0.50-1.30UnTriHealth Good Samaritan HospitalComment on above:Performed By: #### 87794-0 #### NADYA ESTRADA-BOMEISL L ([id number]) [facility] ([facility]) [address], [place] [address]CBY/1.73 sq M.predicted MDRD (S/P/Bld) [Vol rate/Area] mL/min/{1.73_m2}Normal>60UnTriHealth Good Samaritan HospitalComment on above:Result Comment: Calculations of estimated GFR are performed using the 2020 CKD-EPI Study Refit equation without the race variable for the IDMS-Traceable creatinine methods. https://jasn.asnjournals.org/content/early/ASN.2988082243Zelmvtggw By: #### 08393-3 #### NADYA ESTRADA-DAVEMEISL L (27172) [facility] ([facility]) [address], [place] [address]Vskgpmr [Mass/Vol]92 mg/vIOuctgi16-84RlnzyqfdjlMercy Health St. Joseph Warren HospitalComment on above:Performed By: #### 90067-0 #### NADYA VENTURAISL Rashawn ([id number]) [facility] ([facility]) [address] [place], [place] [address]Zjybrcgct [Moles/Vol]3.8 mmol/LNormal3.5-5.3UnTriHealth Good Samaritan HospitalComment on above:Performed By: #### 07376-2 #### NADYA ESTRADA-DAVEMEISL L (23420) [facility] ([facility]) [address] [place], [place] [address]Hyhzcu [Moles/Vol]141 mmol/CPrxqkd484-635QeesqcbdrvTriHealth Good Samaritan HospitalComment on above:Performed By: #### 26698-1 #### NADYA VENTURAISL Rashawn (23102) [facility] ([facility]) [address] [place], [place] [address]Ahty nitrogen [Mass/Vol]13 mg/dLNormal6-23UnTriHealth Good Samaritan HospitalComment on above:Performed By: #### 06239-8 #### NADYA VENTURAISL L (57709) [facility] (TR[facility]) [address] [place], [place] [address]UMR panel Auto (Bld)on 27-84-4178Bewwxidvzlq distribution width (RBC) [Ratio]15.6 %High11.5 - 14.5 %[facility] Hematocrit (Bld) [Volume fraction]27.6 %Low41.0 - 52.0 %[facility] HospitalHemoglobin (Bld) [Mass/Vol]8.5 g/dLLow13.5 - 17.5 g/dLUnGreene Memorial HospitalInterpretation and review of laboratory resultsAbnormal [facility] (RBC) [Entitic mass]30.6 pg26.0 - 34.0 pg [facility] (RBC) [Mass/Vol]30.8 g/dLLow32.0 - 36.0 g/dLUnGreene Memorial HospitalMCV (RBC) [Entitic vol]99 fL80 - 100 fL [facility] HospitalNucleated RBC/100 WBC (Bld) [Ratio]0 % [facility] HospitalPlatelets (Bld) [#/Vol]467 10*3/uLHigh [facility] HospitalRBC (Bld) [#/Vol]2.78 10*6/[facility] HospitalWBC (Bld) [#/Vol]12.3 10*3/uLSouthern Ohio Medical CenterUnGreene Memorial HospitalErythrocyte distribution width (RBC) [Ratio]15.6 %High11.5-14.5UnTriHealth Good Samaritan HospitalComment on above:Performed By: #### 82489-4 #### NADYA Morocho ([id number]) [facility] ([facility]) [address] [place], [place] [address]Iclhlkdopc (Bld) [Volume fraction]27.6 %Low41.0-52.[address] [facility] Warren HospitalComment on above:Performed By: #### 29285-7 #### NADYA Morocho ([id number]) [facility] ([facility]) [address] [place], [place] [address]Hkguaeemvj (Bld) [Mass/Vol]8.5 g/dLLow13.5-17.5UnTriHealth Good Samaritan HospitalComment on above:Performed By: #### 83872-5 #### NADYA VENTURAISL L ([id number]) [facility] ([facility]) [address] [place], [place] [address]AOO (RBC) [Entitic mass]30.6 vtBvgfyi70.0-34.0UnTriHealth Good Samaritan HospitalComment on above:Performed By: #### 55208-3 #### NADYA MATHEWMEISL L ([id number]) [facility] ([facility]) [address] [place], [place] [address]LQYY (RBC) [Mass/Vol]30.8 g/dLLow32.0-36.0UnTriHealth Good Samaritan HospitalComment on above:Performed By: #### 28225-8 #### NADYA Morocho ([id number]) [facility] ([facility]) [address] [place], [place] [address]YCR (RBC) [Entitic vol]99 bRAgxvlw50-956LngzoqruomMercy Health St. Joseph Warren HospitalComment on above:Performed By: #### 79611-0 #### NADYA VENTURAISL L ([id number]) [facility] ([facility]) [address] [place] [address]18[address]Hgzyjiatq RBC/100 WBC (Bld) [Ratio]0.0 /100 WBCsNormal 0.0-0.0[facility] St. Joseph Warren HospitalComment on above:Performed By: #### 00177-9 #### NADYA Morocho ([id number]) [facility] ([facility]) [address] [place] [address] 323[address]Tkrmpkrwu (Bld) [#/Vol]467 x10*3/cHGphd453-082WtfuwyqvtwTriHealth Good Samaritan HospitalComment on above:Performed By: #### 96464-3 #### NADYA Morocho (65560) [facility] ([facility]) [address] [place] [address] 98968NQI (Bld) [#/Vol]2.78 x10*6/uLLow4.50-5.90[facility] St. Joseph Warren HospitalComment on above:Performed By: #### 72724-4 #### NADYA MATHEWMEISL L ([id number]) [facility] ([facility]) [address] [place] [address] 26544DQB (Bld) [#/Vol]12.3 x10*3/uLHigh4.4-11.3[facility] St. Joseph Warren HospitalComment on above:Performed By: #### 21539-8 #### NADYA MATHEWMEISL L (35051) [facility] ([facility]) [address] [place] [address] 569[address]BFI panel Auto (Bld)on 67-08-0518Fgglibzzusi distribution width (RBC) [Ratio]14.1 %11.5 - 14.5 %[facility] Hematocrit (Bld) [Volume fraction]23.5 %Low41.0 - 52.0 %[facility] HospitalHemoglobin (Bld) [Mass/Vol]7.8 g/dLLow13.5 - 17.5 g/dLUnGreene Memorial HospitalInterpretation and review of laboratory resultsAbnormal Summa HealthH (RBC) [Entitic mass]31.3 pg26.0 - 34.0 pg [facility] HospitalMCHC (RBC) [Mass/Vol]33.2 g/dL32.0 - 36.0 g/dL [facility] HospitalMCV (RBC) [Entitic vol]94 fL80 - 100 fL [facility] HospitalNucleated RBC/100 WBC (Bld) [Ratio]0.2 %High [facility] HospitalPlatelets (Bld) [#/Vol]216 10*3/[facility] Flower HospitalRBC (Bld) [#/Vol]2.49 10*6/[facility] Community HospitalWBC (Bld) [#/Vol]13.1 10*3/[facility] Erythrocyte distribution width (RBC) [Ratio]14.1 %Pktddb85.5-14.5[facility] - WestComment on above:Performed By: #### 88205-4 #### DORYS Morocho ([id number]) [facility] ([facility]) [address] [place], [place] [address]Jtepwifhlv (Bld) [Volume fraction]23.5 %Low41.0-52.0 [facility] - WestComment on above:Performed By: #### 05388-0 #### DORYS Morocho ([id number]) [facility] ([facility]) [address] [place], [place] [address]Enyeiagpfm (Bld) [Mass/Vol]7.8 g/dLLow13.5-17.5UnToledo HospitalComment on above:Performed By: #### 37750-7 #### DORYS Morocho ([id number]) [facility] ([facility]) [address] [place], [place] [address]KNU (RBC) [Entitic mass]31.3 npJzaoha71.0-34.0[facility] - WestComment on above:Performed By: #### 50347-6 #### DORYS Morocho ([id number]) [facility] ([facility]) [address] [place] [address]UOUA (RBC) [Mass/Vol]33.2 g/wOLkcfzc03.0-36.0UnToledo HospitalComment on above:Performed By: #### 61830-4 #### DORYS Morocho ([id number]) [facility] ([facility]) [address] [place] [address]08[address]AFM (RBC) [Entitic vol]94 pGVqbfqc65-023KaqsdhrnftToledo HospitalComment on above:Performed By: #### 73171-5 #### DORYS Morocho ([id number]) [facility] ([facility]) [address] [place] [address]Hpzwgpeup RBC/100 WBC (Bld) [Ratio]0.2 /100 WBCsHigh0.0-0.0 [facility] - WestComment on above:Performed By: #### 73389-0 #### DORYS Morcoho ([id number]) [facility] ([facility]) [address] [place] [address]Gotpmybze (Bld) [#/Vol]216 x10*3/pZJrclox817-100TwpdaknosxToledo HospitalComment on above:Performed By: #### 67593-2 #### DORYS Morocho ([id number]) [facility] ([facility]) [address] [place] [address]XCO (Bld) [#/Vol]2.49 x10*6/uLLow4.50-5.90UnToledo HospitalComment on above:Performed By: #### 24499-2 ###Natalie Morocho ([id number]) [facility] ([facility]) [address] [place] [address]DFG (Bld) [#/Vol]13.1 x10*3/uLHigh4.4-11.3L[facility] - WestComment on above:Performed By: #### 86679-6 #### DORYS Morocho ([id number]) [facility] ([facility]) [address] [place] [address] 444[address]Py Panel Informationon 40-76-5976VfwltiqezdWyandot Memorial HospitalPrepare RBC: 1 Unitson 35-60-2008Waglw Expiration Date08/05/2024 11:59:00 PM ESTWyandot Memorial HospitalDispense StatusPTWyandot Memorial HospitalPRODUCT BLOOD WEAB5609HujvsoycjbW[facility] Hospital PRODUCT WYSRL6360J99QbtucqqfxrGood Samaritan Hospital ABOSamaritan HospitalUn [id number]-LVzcsymrnpbBarney Children's Medical CenterUn RHNegativeWyandot Memorial HospitalUN OBEQPQ250 [facility] HospitalX INTEPCOMPWyandot Memorial Hospital Blood type and Indirect antibody screen panel (Bld)on 01-13-7735IGD group Nom (Bld)OUniCleveland Clinic Lutheran HospitalBlmayo clinic hospital group antibody screen QlNegative [facility] HospitalD Ag Ql (Bld)PositiveWyandot Memorial HospitalUnGreene Memorial HospitalAB group Nom (Bld)ONormalLake County Memorial Hospital - WestComment on above:Performed By: #### 57012-1 #### DORYS Morocho ([id number]) [facility] ([facility]) [address] [place] [address] 290[address]Yncjn group antibody screen QlNegativeNoGrant HospitalComment on above:Performed By: #### 05916-7 ###Natalie Morocho ([id number]) [facility] ([facility]) [address] [place] [address] 02845J Ag Ql (Bld)PositiveNoGrant HospitalComment on above:Performed By: #### 58527-1 #### DORYS Morocho ([id number]) [facility] ([facility]) [address] [place] [address]OSG panel Auto (Bld)on 32-41-8372Cgluctvtjsb distribution width (RBC) [Ratio]13.7 %11.5 - 14.5 %[facility] Hematocrit (Bld) [Volume fraction]19.3 %Low41.0 - 52.0 %[facility] HospitalHemoglobin (Bld) [Mass/Vol]6.4 g/dLCritically low13.5 - 17.5 g/dL [facility] HospitalInterpretation and review of laboratory results AbnormalTuscarawas Hospital (RBC) [Entitic mass]30.6 pg26.0 - 34.0 pgSumma HealthHC (RBC) [Mass/Vol]33.2 g/dL32.0 - 36.0 g/dLSumma HealthV (RBC) [Entitic vol]92 fL80 - 100 fLUniCleveland Clinic Lutheran HospitalNucleated RBC/100 WBC (Bld) [Ratio]0 % [facility] HospitalPlatelets (Bld) [#/Vol]171 10*3/[facility] HospitalRBC (Bld) [#/Vol]2.09 10*6/[facility] Community HospitalWBC (Bld) [#/Vol]8.4 10*3/[facility]lower HospitalUnGreene Memorial HospitalErythrocyte distribution width (RBC) [Ratio]13.7 %Normal 11.5-14.5UnToledo HospitalComment on above:Performed By: #### 84062-1 #### DORYS Morocho ([id number]) [facility] ([facility]) [address] [place] [address] 34098Apjjuhjcyl (Bld) [Volume fraction]19.3 %Low41.0-52.0 [facility] - WestComment on above:Performed By: #### 95224-3 #### DORYS Morocho (65529) [facility] ([facility]) [address] [place], [place] [address]Stkwrrxxfu (Bld) [Mass/Vol]6.4 g/dLCritically low13.5-17.5 [facility] - WestComment on above:Performed By: #### 41707-0 #### DORYS Morocho (26649) [facility] ([facility]) [address] [place], [place] [address]HRG (RBC) [Entitic mass]30.6 ztMzzzyr96.0-34.0UnToledo HospitalComment on above:Performed By: #### 42459-9 #### DORYS Morocho (92758) [facility] ([facility]) [address] [place] [address]27[address]KEDA (RBC) [Mass/Vol]33.2 g/jULyihuq04.0-36.0UnToledo HospitalComment on above:Performed By: #### 51370-3 #### DORYS Morocho (67018) [facility] ([facility]) [address] [place] [address] 725[address]HWO (RBC) [Entitic vol]92 oYRivyii82-291PzrxjnmlggToledo HospitalComment on above:Performed By: #### 76280-1 #### DORYS Morocho (99162) [facility] ([facility]) [address] [place] [address] 618[address]Lttporlsi RBC/100 WBC (Bld) [Ratio]0.0 /100 WBCsNormal0.0-0.0 [facility] - WestComment on above:Performed By: #### 42439-5 #### DORYS Morocho (08871) [facility] ([facility]) [address] [place] [address] 09[address]Vcisoxlgm (Bld) [#/Vol]171 x10*3/mPOtnkil776-146RakbwppptyToledo HospitalComment on above:Performed By: #### 81621-9 #### DORYS Morocho (63808) [facility] ([facility]) [address] [place] [address] 82386BST (Bld) [#/Vol]2.09 x10*6/uLLow4.50-5.90L[facility] - WestComment on above:Performed By: #### 12738-9 #### DORYS Morocho (23754) [facility] ([facility]) [address] [place], [place] [address]BZJ (Bld) [#/Vol]8.4 x10*3/uLNormal4.4-11.3[facility] - WestComment on above:Performed By: #### 59416-8 #### DORYS Morocho (45981) [facility] ([facility]) [address] [place], [place] [address]OCN panel Auto (Bld)on 91-24-7335Yicbmhrqyvf distribution width (RBC) [Ratio]13.6 %11.5 - 14.5 %[facility] Hematocrit (Bld) [Volume fraction]21.3 %Low41.0 - 52.0 %[facility] HospitalHemoglobin (Bld) [Mass/Vol]7.1 g/dLLow13.5 - 17.5 g/dLUnGreene Memorial HospitalInterpretation and review of laboratory resultsAbnoAccess Hospital DaytonH (RBC) [Entitic mass]31.1 pg26.0 - 34.0 pg [facility] HospitalMCHC (RBC) [Mass/Vol]33.3 g/dL32.0 - 36.0 g/dL [facility] HospitalMCV (RBC) [Entitic vol]93 fL80 - 100 fL [facility] HospitalNucleated RBC/100 WBC (Bld) [Ratio]0 % [facility] HospitalPlatelets (Bld) [#/Vol]157 10*3/[facility] HospitalRBC (Bld) [#/Vol]2.28 10*6/[facility] HospitalWBC (Bld) [#/Vol]8.1 10*3/[facility] HospitalUnGreene Memorial HospitalErythrocyte distribution width (RBC) [Ratio]13.6 %Normal 11.5-14.5UnToledo HospitalComment on above:Performed By: #### 20478-3 #### DORYS Morocho (35479) [facility] ([facility]) [address] [place] [address] 73087Utnfaocjip (Bld) [Volume fraction]21.3 %Low41.0-52.0 [facility] - WestComment on above:Performed By: #### 03625-1 #### DORYS Morocho ([id number]) [facility] ([facility]) [address] [place] [address] 56594Hhvhjplwwl (Bld) [Mass/Vol]7.1 g/dLLow13.5-17.5UnToledo HospitalComment on above:Performed By: #### 13977-0 #### DORYS Morocho (25896) [facility] ([facility]) [address] [place] [address] 13485RJU (RBC) [Entitic mass]31.1 xuQqbofk07.0-34.0UnToledo HospitalComment on above:Performed By: #### 54710-3 #### DORYS Morocho (99281) [facility] ([facility]) [address] [place] [address] 45667YNXM (RBC) [Mass/Vol]33.3 g/eRHkmsvd64.0-36.0UnToledo HospitalComment on above:Performed By: #### 10530-9 #### DORYS Morocho (66825) [facility] ([facility]) [address] [place] [address] 95441WFZ (RBC) [Entitic vol]93 sCUvtxiq99-321YkkwmxriwrToledo HospitalComment on above:Performed By: #### 21381-8 #### DORYS Morocho ([id number]) [facility] ([facility]) [address] [place] [address] 55141Oqfctyeki RBC/100 WBC (Bld) [Ratio]0.0 /100 WBCsNormal0.0-0.0 [facility] - WestComment on above:Performed By: #### 29639-9 #### DORYS Morocho ([id number]) [facility] ([facility]) [address] [place], [place] [address]Ymtklmtqq (Bld) [#/Vol]157 x10*3/nSFeircb163-249MpwivmboczLake County Memorial Hospital - WestComment on above:Performed By: #### 24299-2 #### DORYS Morocho (30375) [facility] ([facility]) [address] [place] [address] 68177MON (Bld) [#/Vol]2.28 x10*6/uLLow4.50-5.90UnToledo HospitalComment on above:Performed By: #### 87354-6 #### DORYS Morocho ([id number]) [facility] ([facility]) [address] [place] [address] 53975MVP (Bld) [#/Vol]8.1 x10*3/uLNormal4.4-11.3UnToledo HospitalComment on above:Performed By: #### 29152-7 #### DORYS Morocho ([id number]) [facility] ([facility]) [address] [place] [address] 11009Irgezmj Test strip manual (Bld) [Mass/Vol]on 08-01-2024 Glucose [Mass/Vol]96 mg/dL74 - 99 mg/dLUnGreene Memorial Hospital Interpretation and review of laboratory resultsNoalUUniversity Hospitals Geauga Medical CenterUnGreene Memorial HospitalGlucose [Mass/Vol]96 mg/vAIzlxoh06-91 [facility] - WestComment on above:Performed By: #### 66696-7 #### DORYS Morocho ([id number]) [facility] ([facility]) [address] [place] [address] 15331Gtzdqhd [Mass/Vol]128 mg/sUHxxi24 - 99 mg/dLWyandot Memorial HospitalInterpretation and review of laboratory resultsAbKettering Health HamiltonGlucose [Mass/Vol]128 mg/cMZcho43-36LfdtowisufToledo HospitalComment on above:Performed By: #### 66418-2 #### DORYS Morocho ([id number]) [facility] ([facility]) [id number] [place] [address] W Auto Differential panel (Bld)on 66-47-7366Ibmtgdklu (Bld) [#/Vol]0.03 10*3/[facility] HospitalBasophils/100 WBC (Bld)0.3 %0.0 - 2.0 %[facility] HospitalEosinophils (Bld) [#/Vol] 0.56 10*3/[facility] HospitalEosinophils/100 WBC (Bld)5 %0.0 - 6.0 %[facility] Memorial HospitalErythrocyte distribution width (RBC) [Ratio]13 %11.5 - 14.5 %[facility] HospitalHematocrit (Bld) [Volume fraction]22.4 %Low41.0 - 52.0 %[facility] Hemoglobin (Bld) [Mass/Vol]7.5 g/dLLow13.5 - 17.5 g/dLWyandot Memorial HospitalImmauniversity hospitals conneaut [facility] center granulocytes (Bld) [#/Vol]0.09 10*3/[facility] HospitalImmoberly regional medical center granulocytes/100 WBC (Bld)0.8 %0.0 - 0.9 %[facility] HospitalInterpretation and review of laboratory resultsAbnormalUniCleveland Clinic Lutheran HospitalLymphocytes (Bld) [#/Vol]1.83 10*3/[facility] HospitalLymphocytes/100 WBC (Bld)16.4 %13.0 - 44.0 %[facility] HospitalMCH (RBC) [Entitic mass]31 pg26.0 - 34.0 pgUnGreene Memorial HospitalMCHC (RBC) [Mass/Vol]33.5 g/dL32.0 - 36.0 g/dLSumma HealthV (RBC) [Entitic vol]93 fL80 - 100 fLUniCleveland Clinic Lutheran HospitalMonocytes (Bld) [#/Vol]0.61 10*3/[facility] Monocytes/100 WBC (Bld)5.5 %2.0 - 10.0 %[facility] Neutrophils (Bld) [#/Vol]8.03 10*3/[facility] Neutrophils/100 WBC (Bld)72 %40.0 - 80.0 %[facility] Nucleated RBC/100 WBC (Bld) [Ratio]0 %[facility] HospitalPlatelets (Bld) [#/Vol]136 10*3/[facility] HospitalRBC (Bld) [#/Vol] 2.42 10*6/[facility] Community HospitalWBC (Bld) [#/Vol]11.2 10*3/[facility] Medical CenterUnGreene Memorial HospitalBasophils (Bld) [#/Vol]0.03 x10*3/uLNormal0.00-0.10[facility] Hospital - WestComment on above:Performed By: #### 84091-7 ####DORYS Morocho ([id number])[facility] ([facility])[address] [place], [place] [address]Xigwxzkif/100 WBC (Bld)0.3 %Normal0.0-2.0[facility] - WestComment on above:Performed By: #### 35154-6 ####DORYS Morocho (65338)[facility] ([facility])[address] [place], [place] [address]Zmfydsbbqlj (Bld) [#/Vol]0.56 x10*3/uLNormal0.00-0.70UnToledo HospitalComment on above:Performed By: #### ####DORYS Morocho ([id number])[facility] ([facility])[address] [place], [place] [address]Qbvknjbikfm/100 WBC (Bld)5.0 %Normal 0.0-6.0UnToledo HospitalComment on above:Performed By: #### 81430-2 ####DORYS Morocho (50321)[facility] ([facility])[address] [place], [place] [address]Nxygoczdzwl distribution width (RBC) [Ratio]13.0 % Pdljsl47.5-14.5UnToledo HospitalComment on above: Performed By: #### 72438-9 ####DORYS Morocho ([id number])[facility] ([facility])[address] [place] [address] 05645Nqjhbbyudr (Bld) [Volume fraction]22.4 %Low 41.0-52.0UnToledo HospitalComment on above:Performed By: #### 46672-4 ####DORYS Morocho (34559)[facility] ([facility])[address] [place] [address] 722[address]Uebeqewbff (Bld) [Mass/Vol]7.5 g/dLLow13.5-17.5 [facility] - WestComment on above:Performed By: #### 46918-0 ####DORYS Morocho ([id number])[facility] ([facility])[address] [place] [address] 64794Iogqprxo granulocytes (Bld) [#/Vol]0.09 x10*3/uLNormal 0.00-0.70UnToledo HospitalComment on above:Performed By: #### 29670-5 ####DORYS Morocho ([id number])[facility] ([facility])[address] [place], [place] [address]Omvlcyac granulocytes/100 WBC (Bld)0.8 %Normal0.0-0.9 [facility] - WestComment on above:Result Comment: Immature Granulocyte Count (IG) includes promyelocytes, myelocytes and metamyelocytes but does not include bands. Percent differential counts (%) should be interpreted in the context of the absolute cell counts (cells/UL). Performed By: #### 80847-1 ####DORYS Morocho ([id number])[facility] ([facility])[address] [place], [place] [address]Ukhwoahwfej (Bld) [#/Vol]1.83 x10*3/uLNormal 1.20-4.80UnToledo HospitalComment on above:Performed By: #### 79529-7 ####DORYS Morocho ([id number])[facility] ([facility])[address] [place], [place] [address]Sewfdrwahph/100 WBC (Bld)16.4 %Lxtgje10.0-44.0 [facility] WestComment on above:Performed By: #### 46588-8 ####DORYS Morocho ([id number])[facility] ([facility])[address] [place], [place] [address]HDH (RBC) [Entitic mass]31.0 gbNjfkkl97.0-34.0 [facility] WestComment on above:Performed By: #### 23664-3 ####DORYS Morocho ([id number])[facility] ([facility])[address] [place], [place] [address]FNZG (RBC) [Mass/Vol]33.5 g/mPAdsxyj78.0-36.0UnToledo HospitalComment on above:Performed By: #### 69851-0 ####DORYS Morocho ([id number])[facility] ([facility])[address] [place], [place] [address]KKJ (RBC) [Entitic vol]93 lPKxqgsu71-850VxfxlfmzynToledo HospitalComment on above:Performed By: #### 50622-1 ####DORYS Morocho ([id number])[facility] ([facility])[address] [place] [address] Monocytes (Bld) [#/Vol]0.61 x10*3/uLNormal0.10-1.00UnToledo HospitalComment on above:Performed By: #### 60235-3 ####DORYS Morocho ([id number])[facility] ([facility])[address] [place], [place] [address]Yjuxnexwi/100 WBC (Bld)5.5 %Normal2.0-10.0UnToledo HospitalComment on above:Performed By: #### 65754-1 ####DORYS Morocho ([id number])[facility] ([facility])[address] [place] [address] Neutrophils (Bld) [#/Vol]8.03 x10*3/uLHigh1.20-7.70UnToledo HospitalComment on above:Result Comment: Percent differential counts (%) should be interpreted in the context of the absolute cell counts (cells/uL).Performed By: #### 36266-0 ####DORYS Morocho ([id number])[facility] [facility] [place], [place] [address]Fopzcclzxtw/100 WBC (Bld)72.0 % Azwaur05.0-80.0[facility] - WestComment on above: Performed By: #### 87890-2 ####DORYS Morocho ([id number])[facility] ([facility])[address] [place], [place] [address]Satqqmxty RBC/100 WBC (Bld) [Ratio]0.0 /100 WBCsNormal0.0-0.0[facility] - WestComment on above: Performed By: #### 18363-5 ####DORYS RIOS L ([id number])[facility] ([facility])[address] [place], [place] [address]Igscvhoko (Bld) [#/Vol]136 x10*3/uHGdq701-657 [facility] - WestComment on above:Performed By: #### 05971-4 ####DORYS RIOS L ([id number])[facility] ([facility])[address] [place], [place] [address]UUI (Bld) [#/Vol]2.42 x10*6/uLLow4.50-5.90[facility] - WestComment on above:Performed By: #### 90787-0 ####DORYS RIOS L ([id number])[facility] ([facility])[address] [place], [place] [address]TXP (Bld) [#/Vol]11.2 x10*3/uLNormal4.4-11.3[facility] - WestComment on above:Performed By: #### 01922-0 ####DORYS Morocho ([id number])[facility] ([facility])[address] [place], [place] [address]TNI panel Auto (Bld)on 20-02-5411Jjnivadkfcs distribution width (RBC) [Ratio]13.4 % 11.5 - 14.5 %[facility] HospitalHematocrit (Bld) [Volume fraction] 22.8 %Low41.0 - 52.0 %[facility] HospitalHemoglobin (Bld) [Mass/Vol]7.4 g/dLLow13.5 - 17.5 g/dLWyandot Memorial Hospital Interpretation and review of laboratory resultsAbnoalUFayette County Memorial HospitalH (RBC) [Entitic mass]30.2 pg26.0 - 34.0 pgWyandot Memorial HospitalMCHC (RBC) [Mass/Vol]32.5 g/dL32.0 - 36.0 g/dLWyandot Memorial HospitalMCV (RBC) [Entitic vol]93 fL80 - 100 [facility]CMC Healthcare SystemNucleated RBC/100 WBC (Bld) [Ratio]0 %[facility] Platelets (Bld) [#/Vol]144 10*3/[facility] HospitalRBC (Bld) [#/Vol]2.45 10*6/[facility] HospitalWBC (Bld) [#/Vol]11 10*3/uLWyandot Memorial HospitalUnGreene Memorial Hospital Erythrocyte distribution width (RBC) [Ratio]13.4 %Uhwouq96.5-14.5UnToledo HospitalComment on above:Performed By: #### 90217-5 #### DORYS Morocho ([id number]) [facility] ([facility]) [address] [place], [place] [address]Oiusdbxxlf (Bld) [Volume fraction]22.8 %Low41.0-52.0 [facility] - WestComment on above:Performed By: #### 55294-2 #### DORYS Morocho ([id number]) [facility] ([facility]) [address] [place] [address]Jerhjvrcwe (Bld) [Mass/Vol]7.4 g/dLLow13.5-17.5UnToledo HospitalComment on above:Performed By: #### 82731-2 #### DORYS Morocho ([id number]) [facility] ([facility]) [address] [place] [address]89[address]VHI (RBC) [Entitic mass]30.2 tiZggefb99.0-34.0UnToledo HospitalComment on above:Performed By: #### 21613-7 #### DORYS Morocho ([id number]) [facility] ([facility]) [address] [place] [address]DYKL (RBC) [Mass/Vol]32.5 g/pWTdnclo42.0-36.0UnToledo HospitalComment on above:Performed By: #### 44032-9 #### DORYS Morocho ([id number]) [facility] ([facility]) [address] [place] [address]RBB (RBC) [Entitic vol]93 gTCfywjh01-334FnorsqgfedToledo HospitalComment on above:Performed By: #### 26319-3 #### DORYS Morocho ([id number]) [facility] ([facility]) [address] [place] [address]Iwhroaatg RBC/100 WBC (Bld) [Ratio]0.0 /100 WBCsNormal0.0-0.0 [facility] - WestComment on above:Performed By: #### 78812-5 #### DORYS Morocho ([id number]) [facility] ([facility]) [address] [place] [address]Bhpqmxjlr (Bld) [#/Vol]144 x10*3/rOXhn952-308IrktivpbpqToledo HospitalComment on above:Performed By: #### 90840-8 #### DORYS Morocho (92291) [facility] ([facility]) [address] [place] [address]12[address]OSH (Bld) [#/Vol]2.45 x10*6/uLLow4.50-5.90UnToledo HospitalComment on above:Performed By: #### 14035-2 #### DORYS Morocho ([id number]) [facility] ([facility]) [address] [place] [address] 33023EQM (Bld) [#/Vol]11.0 x10*3/uLNormal4.4-11.3UnToledo HospitalComment on above:Performed By: #### 79165-4 #### DORYS Morocho ([id number]) [facility] ([facility]) [address] [place] [address] 69[address]Clpzwerllbm 79-00-3245Esyqeavjs [Mass/Vol]1.94 mg/dL1.60 - 2.40 mg/dLUnGreene Memorial HospitalMagnesium [Mass/Vol]1.94 mg/dLNormal 1.60-2.40[facility] - WestComment on above:Performed By: #### 31767-1 #### DORYS Morocho ([id number]) [facility] ([facility]) [address] [place] [address] 73[address]Mgvxjzzrx [Mass/Vol]on 57-19-1495Dgtpfzqzuedepp and review of laboratory resultsNormalUniversParkview LaGrange HospitalNo Panel Informationon 62-51-7751GvcgewdfmjGreene Memorial HospitalRenal function 2000 panelon 85-79-5418Metetqp BCP dye [Mass/Vol]3.1 g/dLLow3.4 - 5.0 g/dLUnGreene Memorial HospitalAnion gap [Moles/Vol]11 mmol/L10 - 20 mmol/[facility] Medical CenterCalcium [Mass/Vol]8 mg/dLLow8.6 - 10.6 mg/dLUnGreene Memorial HospitalChloride [Moles/Vol]106 mmol/L98 - 107 mmol/[facility] Medical CenterCO2 [Moles/Vol]27 mmol/L21 - 32 mmol/[facility] Medical CenterCreatinine [Mass/Vol]0.72 mg/dL0.50 - 1.30 mg/dLUnGreene Memorial HospitaleGFR- PINFUniCleveland Clinic Lutheran HospitalGlucose [Mass/Vol]112 mg/zJZpqo31 - 99 mg/dLUnGreene Memorial Hospital Interpretation and review of laboratory resultsAbnormalUniCleveland Clinic Lutheran HospitalPhosphate [Mass/Vol]3 mg/dL2.5 - 4.9 mg/dLUnGreene Memorial HospitalPotassium [Moles/Vol]4.1 mmol/L3.5 - 5.3 mmol/[facility] Medical CenterSodium [Moles/Vol]140 mmol/L136 - 145 mmol/[facility]'s Medical CenterUrea nitrogen [Mass/Vol]11 mg/dL6 - 23 mg/dLUnGreene Memorial HospitalAlbumin BCP dye [Mass/Vol]3.1 g/dLLow3.4-5.0UnToledo HospitalComment on above:Performed By: #### 50295-5 #### DORYS Morocho (47797) [facility] ([facility]) [address] [place] [address] 144[address]Yfgff gap [Moles/Vol]11 mmol/PDamsvr39-28AxclnxleazToledo HospitalComment on above:Performed By: #### 61174-4 #### DORYS Morocho ([id number]) [facility] ([facility]) [address] [place] [address]86[address]Tjvglgs [Mass/Vol]8.0 mg/dLLow8.6-10.6UnToledo HospitalComment on above:Performed By: #### 67468-6 #### DORYS Morocho (33827) [facility] ([facility]) [address] [place] [address] 389[address]Uuwajhup [Moles/Vol]106 mmol/BOheozc12-090MxqydjhungToledo HospitalComment on above:Performed By: #### 84396-8 #### DORYS Morocho (62113) [facility] ([facility]) [address] [place], [place] [address]XJ9 [Moles/Vol]27 mmol/FYmwlfo13-16AjcpwlppkkToledo HospitalComment on above:Performed By: #### 71094-0 #### DORYS Morocho (22757) [facility] ([facility]) [address] [place], [place] [address]Dqcirmbpvr [Mass/Vol]0.72 mg/dLNormal0.50-1.30UnToledo HospitalComment on above:Performed By: #### 67563-9 #### DORYS Morocho (43823) [facility] ([facility]) [address] [place], [place] [address]LEX/1.73 sq M.predicted MDRD (S/P/Bld) [Vol rate/Area] mL/min/{1.73_m2}Normal>60UnToledo HospitalComment on above:Result Comment: Calculations of estimated GFR are performed using the 2020 CKD-EPI Study Refit equation without the race variable for the IDMS-Traceable creatinine methods. https://jasn.asnjournals.org/content//ASN.5799704188Fljszhdsq By: #### 48249-2 #### DORYS Morocho (12522) [facility] ([facility]) [address] [place], [place] [address]Clzxaeg [Mass/Vol]112 mg/nAJqxe42-57MldctzfnqdToledo HospitalComment on above:Performed By: #### 18819-3 #### DORYS Morocho (82040) [facility] ([facility]) [address] [place], [place] [address]Yfgshapoq [Mass/Vol]3.0 mg/dLNormal2.5-4.9UnToledo HospitalComment on above:Result Comment: The performance characteristics of phosphorus testing in heparinized plasma have bee n validated by the individual laboratory site where testing is performed. Testing on heparinizedplasma is not approved by the FDA; however, such approval is not necessary.Performed By: #### 34650-9 #### DORYS Morocho (89768) [facility] ([facility]) [address] [place] [address]Elpmylhsq [Moles/Vol]4.1 mmol/LNormal3.5-5.3[facility] - WestComment on above:Performed By: #### 37742-3 #### DORYS Morocho (87066) [facility] ([facility]) [address] [place] [address]Lmfwhz [Moles/Vol]140 mmol/VFzvsen872-709IltqzaprvaToledo HospitalComment on above:Performed By: #### 73022-8 #### DORYS Morocho (33899) [facility] ([facility]) [address] [place] [address] 19099Qtez nitrogen [Mass/Vol]11 mg/dLNormal6-23UnToledo HospitalComment on above:Performed By: #### 42236-7 #### DORYS Morocho (26562) [facility] ([facility]) [address] [place] [address] 25[address]CHR panel Auto (Bld)on 83-02-8673Ialflteyoli distribution width (RBC) [Ratio]12.7 %11.5 - 14.5 %[facility] Hematocrit (Bld) [Volume fraction]31.9 %Low41.0 - 52.0 %[facility] HospitalHemoglobin (Bld) [Mass/Vol]10.9 g/dLLow13.5 - 17.5 g/dLUnGreene Memorial HospitalInterpretation and review of laboratory resultsAbnormal [facility] HospitalMCH (RBC) [Entitic mass]31.2 pg26.0 - 34.0 pg [facility] HospitalMCHC (RBC) [Mass/Vol]34.2 g/dL32.0 - 36.0 g/dL [facility] HospitalMCV (RBC) [Entitic vol]91 fL80 - 100 fL [facility] HospitalNucleated RBC/100 WBC (Bld) [Ratio]0 % [facility] HospitalPlatelets (Bld) [#/Vol]215 10*3/[facility]lower HospitalRBC (Bld) [#/Vol]3.49 10*6/[facility] Community HospitalWBC (Bld) [#/Vol]16.4 10*3/[facility] HospitalErythrocyte distribution width (RBC) [Ratio] 12.7 %Uoxitp58.5-14.5[facility] - WestComment on above:Order Comment: Next DrawPerformed By: #### 65196-7 ####DORYS Morocho (74388)[facility] ([facility])[address] [place], [place] [address]Gxhefwetgc (Bld) [Volume fraction]31.9 %Low41.0-52.0UnToledo Hospital Comment on above:Order Comment: Next DrawPerformed By: #### 64564-3 ####DORYS Morocho (76070)[facility] ([facility])[address] [place], [place] [address]Vyslbnmfjb (Bld) [Mass/Vol]10.9 g/dLLow13.5-17.5UnToledo HospitalComment on above:Order Comment: Next DrawPerformed By: #### 63167-7 ####DORYS Morocho ([id number])[facility] ([facility])[address] [place], [place] [address]MCF (RBC) [Entitic mass]31.2 pnEhhhet52.0-34.0 [facility] - WestComment on above:Order Comment: Next DrawPerformed By: #### 93789-3 ####DORYS Morocho (50231)[facility] ([facility])[address] [place], [place] [address]MLGG (RBC) [Mass/Vol]34.2 g/dLNormal 32.0-36.0UnToledo HospitalComment on above:Order Comment: Next DrawPerformed By: #### 39727-9 ####DORYS Morocho ([id number])[facility] ([facility])[address] [place], [place] [address]LSR (RBC) [Entitic vol]91 iDMtysom59-973FkwyacmoqhToledo HospitalComment on above:Order Comment: Next DrawPerformed By: #### 16613-1 ####DORYS Morocho ([id number])[facility] ([facility])[address] [place], [place] [address]Bfqspcmoi RBC/100 WBC (Bld) [Ratio]0.0 /100 WBCsNormal0.0-0.0UnToledo HospitalComment on above:Order Comment: Next DrawPerformed By: #### 33447- 2 ####DORYS Morocho (06790)[facility] ([facility])[address] [place], [place] [address]Ufefyuynt (Bld) [#/Vol]215 x10*3/sALhqmct383-095QbgnikqwksToledo HospitalComment on above:Order Comment: Next DrawPerformed By: #### 31915-0 ####DORYS Morocho (09667)[facility] ([facility])[address] [place], [place] [address]IGE (Bld) [#/Vol]3.49 x10*6/uLLow4.50-5.90UnToledo HospitalComment on above:Order Comment: Next Draw Performed By: #### 46472-1 ####DORYS Morocho ([id number])[facility] ([facility])[address] [place], [place] [address]YHR (Bld) [#/Vol]16.4 x10*3/uLHigh4.4-11.3 [facility] - WestComment on above:Order Comment: Next DrawPerformed By: #### 10382-2 ####DORYS Morocho (45207)[facility] ([facility])[address] [place], [place] [address]Xbahtzx Test strip manual (Bld) [Mass/Vol]on 12-58-8523Qscdzee [Mass/Vol]127 mg/nWRxet99 - 99 mg/dLUnparkview regional hospital Hospitals of ClevelandInterpretation and review of laboratory resultsAbMemorial HospitalUnGreene Memorial HospitalGlucose [Mass/Vol]127 mg/pUAovc03-83LsnldgkmykToledo HospitalComment on above:Performed By: #### 2341-6 ####DORYS Morocho (48726)[facility] ([facility])[address] [place], [place] [address]Lrnothe [Mass/Vol]116 mg/hUPwqc31 - 99 mg/dLUnGreene Memorial HospitalInterpretation and review of laboratory resultsAbKettering Health – Soin Medical CenterGlucose [Mass/Vol]116 mg/cYXaem18-15ZmsxuctysdToledo HospitalComment on above:Performed By: #### 2341-6 ####DORYS Morocho ([id number])[facility] ([facility])[address] [place] [address]Zycvssyeatb 44-48-8474Fzvfzyffl [Mass/Vol]2.14 mg/dL1.60 - 2.40 mg/dLUnGreene Memorial HospitalMagnesium [Mass/Vol]2.14 mg/dLNormal1.60-2.40UnToledo HospitalComment on above:Order Comment: Next DrawPerformed By: #### 22655-8 ####DORYS Morocho ([id number])[facility] ([facility])[address] [place] [address]Eceikihle [Mass/Vol]on 76-65-3380Sivzzxquexbzkv and review of laboratory resultsNoFlower HospitalNo Panel Informationon 19-50-7618KncmrrmllpWyandot Memorial HospitalPT and aPTT panel Coag (PPP)on 09-63-1885jJWL Coag (PPP) [Time]28 [facility]tering [facility] SpringfieldINR Coag (PPP) [Relative time]1.2 {INR}High0.9 - 1.1[facility] HospitalInterpretation and review of laboratory resultsAbKindred Hospital LimaPT Coag (PPP) [Time]13.7 Marion HospitalUnGreene Memorial HospitalUnGreene Memorial HospitalaPTT Coag (PPP) [Time]28 gTghcks41-36RwqdoxxeahToledo Hospital Comment on above:Order Comment: The APTT is no longer used for monitoring Unfractionated Heparin Therapy. For monitoring Heparin Therapy, use the Heparin Assay.Performed By: #### 81211-1 ####DORYS Morocho ([id number])[facility] ([facility])[address] [place] [address] 239[address]GVK Coag (PPP) [Relative time]1.2High 0.9-1.1UnToledo HospitalComment on above:Order Comment: The APTT is no longer used for monitoring Unfractionated Heparin Therapy. For monitoring Heparin Therapy, use the Heparin Assay.Performed By: #### 73276-7 ####DORYS Morocho (72530)[facility] ([facility])[address] [place] [address] 24055QY Coag (PPP) [Time]13.7 sHigh9.8-12.8UnToledo HospitalComment on above:Order Comment: The APTT is no longer used for monitoring Unfractionated Heparin Therapy. For monitoring Heparin Therapy, use the Heparin Assay.Performed By: #### 21702-6 ####DORYS Morocho (52725)[facility] ([facility])[address] [place] [address] 679[address]Ehgua function 2000 panelon 22-91-2393Urugwpt BCP dye [Mass/Vol]4.1 g/dL3.4 - 5.0 g/dL [facility] HospitalAnion gap [Moles/Vol]11 mmol/L10 - 20 mmol/L [facility] HospitalCalcium [Mass/Vol]8.5 mg/dLLow8.6 - 10.6 mg/dL [facility] HospitalChloride [Moles/Vol]97 mmol/LLow98 - 107 mmol/L [facility] HospitalCO2 [Moles/Vol]33 mmol/LHigh21 - 32 mmol/L [facility] HospitalCreatinine [Mass/Vol]1.02 mg/dL0.50 - 1.30 mg/dLUnGreene Memorial HospitaleGFR- PINFUniCleveland Clinic Lutheran HospitalGlucose [Mass/Vol]129 mg/jWHezs31 - 99 mg/dLUnGreene Memorial HospitalInterpretation and review of laboratory resultsAbnormalUniCleveland Clinic Lutheran HospitalPhosphate [Mass/Vol]4.3 mg/dL2.5 - 4.9 mg/dLUnGreene Memorial HospitalPotassium [Moles/Vol]4 mmol/L3.5 - 5.3 mmol/[facility] Medical CenterSodium [Moles/Vol]137 mmol/L136 - 145 mmol/[facility] Children's Medical CenterUrea nitrogen [Mass/Vol]10 mg/dL6 - 23 mg/dLWyandot Memorial HospitalAlbumin BCP dye [Mass/Vol]4.1 g/dLNormal3.4-5.0[facility] - WestComment on above:Performed By: #### 23220-8 ####DORYS Morocho (47063)[facility] ([facility])[address] [place], [place] [address]Foydz gap [Moles/Vol]11 mmol/EKklwkx11-68WwsftiwjzlToledo HospitalComment on above:Performed By: #### 80882-4 ####DORYS Morocho (40303)[facility] ([facility])[address] [place], [place] [address]Znaynua [Mass/Vol]8.5 mg/dLLow8.6-10.6[facility] Comment on above:Performed By: #### 53125-7 ####DORYS Morocho ([id number])[facility] ([facility])[address] [place], [place] [address]Hjmxbtap [Moles/Vol] 97 mmol/GAwf67-485CpjllqfwuvToledo HospitalComment on above: Performed By: #### 16550-1 ####DORYS Morocho (60942)[facility] ([facility])[address] [place], [place] [address]UA1 [Moles/Vol]33 mmol/TEjkx54-47VgcvhirxjsToledo HospitalComment on above:Performed By: #### 72299-5 ####DORYS Morocho (39644)[facility] ([facility])[address] [place], [place] [address]Hobmgqkpja [Mass/Vol]1.02 mg/dLNormal0.50-1.30UnToledo HospitalComment on above:Performed By: #### 41904-5 ####DORYS Morocho (64415)[facility] ([facility])[address] [place], [place] [address]SSH/1.73 sq M.predicted MDRD (S/P/Bld) [Vol rate/Area]mL/min/{1.73_m2} Normal>60UnToledo HospitalComment on above:Result Comment: Calculations of estimated GFR are performed using the 2020 CKD-EPI Study Refit equation without the race variable for the IDMS-Traceable creatinine methods. https://jasn.asnjournals.org/content/early/ASN.8997089540[place] By: #### 36874-4 ####DORYS Morocho ([id number])[facility] ([facility])[address] [place], [place] [address]Stegpow [Mass/Vol]129 mg/pAYmyj04-15ZbabpcucjtToledo HospitalComment on above:Performed By: #### 23249-0 ####DORYS Morocho (69095)[facility] ([facility])[address] [place], [place] [address]Alljuiubh [Mass/Vol]4.3 mg/dLNormal2.5-4.9[facility] - WestComment on above:Result Comment: The performance characteristics of phosphorus testing in heparinized plasma have been validated by the individual laboratory site where testing is performed. Testing on heparinized plasma is not approved by the FDA; however, such approval is not necessary. Performed By: #### 65844-4 ####DORYS Morocho ([id number])[facility] ([facility])[address] [place], [place] [address]Mpaehholv [Moles/Vol]4.0 mmol/LNormal3.5-5.3 [facility] - WestComment on above:Performed By: #### 08222-2 ####DORYS Morocho ([id number])[facility] ([facility])[address] [place], [place] [address]Lyyhoo [Moles/Vol]137 mmol/GIcytvj416-364KiwjbsledbToledo HospitalComment on above:Performed By: #### 18825-2 ####DORYS Morocho ([id number])[facility] ([facility])[address] [place], [place] [address]Xkuu nitrogen [Mass/Vol]10 mg/dLNormal6-23UnToledo HospitalComment on above:Performed By: #### 25591-1 ####DORYS Morocho ([id number])[facility] ([facility])[address] [place], [place] [address]SJZ panel Auto (Bld)on [id number] distribution width (RBC) [Ratio]13 % 11.5 - 14.5 %[facility] HospitalHematocrit (Bld) [Volume fraction] 35.2 %Low41.0 - 52.0 %[facility] HospitalHemoglobin (Bld) [Mass/Vol]11.8 g/dLLow13.5 - 17.5 g/dLUnGreene Memorial Hospital Interpretation and review of laboratory resultsAbnormalUFayette County Memorial HospitalH (RBC) [Entitic mass]30.8 pg26.0 - 34.0 pgWyandot Memorial HospitalMCHC (RBC) [Mass/Vol]33.5 g/dL32.0 - 36.0 g/dLUnGreene Memorial HospitalMCV (RBC) [Entitic vol]92 fL80 - 100 fLUUniversity Hospitals Geauga Medical CenterNucleated RBC/100 WBC (Bld) [Ratio]0 %[facility] Platelets (Bld) [#/Vol]197 10*3/uLWyandot Memorial HospitalRBC (Bld) [#/Vol]3.83 10*6/[facility] HospitalWBC (Bld) [#/Vol]18.7 10*3/uLSouthern Ohio Medical CenterUnGreene [facility] Hospital Erythrocyte distribution width (RBC) [Ratio]13.0 %Yqpast66.5-14.5UnToledo HospitalComment on above:Performed By: #### 66000-6 ####DORYS Morocho ([id number])[facility] ([facility])[address] [place], [place] [address]Ppmoipvegb (Bld) [Volume fraction]35.2 %Low41.0-52.0UnToledo HospitalComment on above:Performed By: #### 91154-0 ####DORYS Morocho ([id number])[facility] ([facility] HOSPITAL)[address] [place], [place] [address]Cadugevddy (Bld) [Mass/Vol]11.8 g/dLLow13.5-17.5[facility] - WestComment on above:Performed By: #### 93075-7 ####DORYS Morocho ([id number])[facility] ([facility])[address] [place], [place] [address]MEK (RBC) [Entitic mass]30.8 xbLommie80.0-34.0[facility] - WestComment on above:Performed By: #### 70714-0 ####DORYS Morocho ([id number])[facility] ([facility])[address] [place], [place] [address]FIRO (RBC) [Mass/Vol]33.5 g/hFIzzoof02.0-36.0[facility] - WestComment on above:Performed By: #### 29238-9 ####DORYS Morocho ([id number])[facility] ([facility])[address] [place], [place] [address]ROB (RBC) [Entitic vol]92 wVQmbsiy67-572WxlghwtzzcToledo HospitalComment on above:Performed By: #### 30050-0 ####DORYS Morocho ([id number])[facility] ([facility])[address] [place], [place] [address]Qrulaosnb RBC/100 WBC (Bld) [Ratio]0.0 /100 WBCsNormal0.0-0.0UnToledo HospitalComment on above:Performed By: #### 41377-4 ####DORYS Morocho ([id number])[facility] ([facility])[address] [place] [address] Platelets (Bld) [#/Vol]197 x10*3/nWZkdzbp859-310PpwftzktiqToledo HospitalComment on above:Performed By: #### 08777-2 ####DORYS Morocho ([id number])[facility] ([facility])[address] [place], [place] [address]OMS (Bld) [#/Vol]3.83 x10*6/uLLow4.50-5.90UnToledo HospitalComment on above:Performed By: #### 74284-5 ####DORYS Morocho (36580)[facility] ([facility])[address] [place] [address]DKY (Bld) [#/Vol] 18.7 x10*3/uLHigh4.4-11.3UnToledo HospitalComment on above:Performed By: #### 73897-1 ####DORYS Morocho ([id number])[facility] ([facility])[address] [place], [place] [address]Ilgztqbylvq distribution width (RBC) [Ratio]12.9 %11.5 - 14.5 %[facility] HospitalHematocrit (Bld) [Volume fraction]39.6 %Low41.0 - 52.0 %[facility] Hemoglobin (Bld) [Mass/Vol]13.6 g/dL13.5 - 17.5 g/dLUnGreene Memorial HospitalInterpretation and review of laboratory resultsAbnormalUniAdena Regional Medical Center (RBC) [Entitic mass]30.2 pg26.0 - 34.0 pgUnCleveland Clinic (RBC) [Mass/Vol]34.3 g/dL32.0 - 36.0 g/dLWyandot Memorial HospitalMCV (RBC) [Entitic vol]88 fL80 - 100 ACMC Healthcare SystemNucleated RBC/100 WBC (Bld) [Ratio]0 %[facility] Memorial HospitalPlatelets (Bld) [#/Vol]221 10*3/[facility] RBC (Bld) [#/Vol]4.5 10*6/[facility] HospitalWBC (Bld) [#/Vol] 13.7 10*3/[facility]'s Medical CenterUnGreene Memorial HospitalErythrocyte distribution width (RBC) [Ratio]12.9 %Ymenii64.5-14.5 [facility] - WestComment on above:Order Comment: Next DrawPerformed By: #### 68228-9 ####DORYS Morocho ([id number])[facility] ([facility])[address] [place], [place] [address]Qncwptpvnx (Bld) [Volume fraction] 39.6 %Low41.0-52.0UnToledo HospitalComment on above: Order Comment: Next DrawPerformed By: #### 51673-3 ####DORYS Morocho ([id number])[facility] ([facility])[address] [place], [place] [address]Xvffkwzobd (Bld) [Mass/Vol]13.6 g/lKNmoxcx07.5-17.5UnToledo Hospital Comment on above:Order Comment: Next DrawPerformed By: #### 26196-7 ####DORYS RIOS L ([id number])[facility] ([facility])[address] [place], [place] [address]SVM (RBC) [Entitic mass]30.2 bzCtmumg64.0-34.0[facility] - WestComment on above:Order Comment: Next DrawPerformed By: #### 85137-4 ####DORYS Morocho (74938)[facility] ([facility])[address] [place], [place] [address]YYEM (RBC) [Mass/Vol]34.3 g/hDXkzjir46.0-36.0UnToledo HospitalComment on above:Order Comment: Next Draw Performed By: #### 87204-9 ####DORYS Morocho ([id number])[facility] ([facility])[address] [place], [place] [address]CRH (RBC) [Entitic vol]88 wZHuwfmq34-588 [facility] - WestComment on above:Order Comment: Next DrawPerformed By: #### 36864-3 ####DORYS Morocho ([id number])[facility] ([facility])[address] [place], [place] [address]Mxngwyqzq RBC/100 WBC (Bld) [Ratio] 0.0 /100 WBCsNormal0.0-0.0UnToledo HospitalComment on above:Order Comment: Next DrawPerformed By: #### 43713-2 ####DORYS Morocho (19300)[facility] ([facility])[address] [place] [address] Platelets (Bld) [#/Vol]221 x10*3/hEWqsysl234-783KkmswchjqhToledo HospitalComment on above:Order Comment: Next DrawPerformed By: #### 41619- 2 ####DORYS Morocho (67716)[facility] ([facility])[address] [place], [place] [address]ULC (Bld) [#/Vol]4.50 x10*6/uLNormal4.50-5.90UnToledo HospitalComment on above:Order Comment: Next DrawPerformed By: #### 11990-9 ####DORYS Morocho ([id number])[facility] ([facility])[address] [place], [place] [address]HBZ (Bld) [#/Vol]13.7 x10*3/uLHigh4.4-11.3UnToledo HospitalComment on above:Order Comment: Next Draw Performed By: #### 63803-4 ####DORYS Morocho (77753)[facility] ([facility])[address] [place], [place] [address]Erythrocyte distribution width (RBC) [Ratio]13 %11.5 - 14.5 %[facility] HospitalHematocrit (Bld) [Volume fraction]40 %Low41.0 - 52.0 %[facility] HospitalHemoglobin (Bld) [Mass/Vol]13.3 g/dLLow13.5 - 17.5 g/dLWyandot Memorial Hospital Interpretation and review of laboratory resultsAbnoPremier Health Atrium Medical Center (RBC) [Entitic mass]30.8 pg26.0 - 34.0 pgSumma HealthHC (RBC) [Mass/Vol]33.3 g/dL32.0 - 36.0 g/dLSumma HealthV (RBC) [Entitic vol]93 fL80 - 100 fLUniCleveland Clinic Lutheran HospitalNucleated RBC/100 WBC (Bld) [Ratio]0 %[facility] Platelets (Bld) [#/Vol]48 10*3/[facility] HospitalRBC (Bld) [#/Vol]4.32 10*6/[facility] HospitalWBC (Bld) [#/Vol]15.8 10*3/[facility] Medical CenterUnGreene Memorial HospitalFL FLUORO IMAGES NO CHARGEon 81-98-5131WW FLUORO IMAGES NO CHARGEThese images are not reportable by radiology and will not be interpreted by Radiologists. 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 [employer] [place] AND electrolytes panelon 12-92-4415Rdsy excess Calc (Bld) [Moles/Vol]3.7 mmol/LHigh-2.0-3.0[facility] - WestComment on above:Performed By: #### 35570-2 ####DORYS Morocho (11628)[facility] ([facility])[address] [place] [address] Performed By: #### 79617-8 ####DORYS RIOS L ([id number])[facility] ([facility])[address] [place], [place] [address]LH7 (Bld) [Partial pressure]43 mm JvMjnz94-53 [facility] - WestComment on above:Performed By: #### 95023-7 ####DORYS RIOS L (08469)[facility] ([facility])[address] [place], [place] [address]Tyhrctzru By: #### 51401-9 ####DORYS RIOS L (63646)[facility] ([facility])[address] [facility], [place] [address]NDW4 (Bld) [Moles/Vol]28.5 mmol/LHigh22.0-26.0[facility] Comment on above:Performed By: #### 67332-9 ####DORYS Morocho (86251)[facility] ([facility])[address] [place], [place] [address]Pbzuwfrhc By: #### 41089-4 ####DORYS RIOS L (12755)[facility] ([facility])[address] [place], [place] [address]Nnwbjdd oxygen glwqaqprpyrje24 %NormalUnToledo HospitalComment on above:Performed By: #### 86248-8 ####DORYS RIOS L (23210)[facility] ([facility])[address] [place], [place] [address]Cnbnkhtfa By: #### 17090-9 ####DORYS RIOS L (54439)[facility] ([facility])[address] [facility], [place] [address]Gtsrjx (Bld) [Partial pressure]233 mm NyAqur59-60EhopuspldqLake County Memorial Hospital - WestComment on above: Performed By: #### 12618-0 ####DORYS RAINEYER L (69154)[facility] ([facility])[address] [place], [place] [address]Cxcfkavvu By: #### 71205-9 ####DORYS RIOS L (84910)[facility] ([facility])[address] [place] [address] Oxyhemoglobin (BldA) [Mass fraction]97.5 %Hmenjv76.0-98.0UnToledo HospitalComment on above:Performed By: #### 72457-6 ####DORYS Morocho (13568)[facility] ([facility])[address] [place], [place] [address]Jymlbsiby By: #### 62534-2 ####DORYS Morocho (03513)[facility] ([facility])[address] [place], [place] [address]pO (Bld)7.43 [pH]High7.38-7.42 [facility] - WestComment on above:Performed By: #### 70391-0 ####DORYS Morocho (25382)[facility] ([facility])[address] [place], [place] [address]Kywjrzxwe By: #### 68562-0 ####DORYS Morocho (50326)[facility] ([facility])[address] [place] [address] 589[address]Lwf and Carbon monoxide and Electrolytes panel (BldA)on 90-31-2551Omdvj gap 4 (BldA) [Moles/Vol]7LowUnGreene Memorial HospitalCalcium.ionized (BldA) [Moles/Vol]1.14 mmol/L1.10 - 1.33 mmol/[facility] Chloride (BldA) [Moles/Vol]104 mmol/L98 - 107 mmol/[facility] Medical CenterGlucose [Mass/Vol]107 mg/zAIdbd51 - 99 mg/dLUnGreene Memorial HospitalHematocrit Est (Bld) [Volume fraction]38 %Low41.0 - 52.0 %[facility] HospitalHemoglobin (Bld) [Mass/Vol]12.8 g/dLLow13.5 - 17.5 g/dL [facility] HospitalLactate (BldA) [Moles/Vol]0.9 mmol/L0.4 - 2.0 mmol/[facility] Medical CenterPotassium (BldA) [Moles/Vol]3.8 mmol/L3.5 - 5.3 mmol/[facility] Medical CenterSodium (BldA) [Moles/Vol]136 mmol/L136 - 145 mmol/[facility] Medical CenterAnion gap 4 (BldA) [Moles/Vol]7 mmo/LOmz70-07DmtxbadqmwLake County Memorial Hospital - WestComment on above:Performed By: #### 27459-1 ####DORYS Morocho (12897)[facility] ([facility])[address] [place] [address]Brmwqim.ionized (BldA) [Moles/Vol] 1.14 mmol/LNormal1.10-1.33UnToledo HospitalComment on above:Performed By: #### 42043-7 ####DORYS Morocho (11762)[facility] ([facility])[address] [place] [address]Nllyllur (BldA) [Moles/Vol]104 mmol/L Ptezli75-316EjvlokfhqgToledo HospitalComment on above: Performed By: #### 28400-7 ####DORYS Morocho (25501)[facility] ([facility])[address]19 [place], [place] [address]Mxbymrf [Mass/Vol]107 mg/yMXjnx40-03MttieedbgfToledo HospitalComment on above:Performed By: #### 18891-7 ####DORYS Morocho (15611)[facility] ([facility])[address] [place] [address]Vaxmyasaxw Est (Bld) [Volume fraction]38.0 %Low41.0-52.0[facility] - WestComment on above:Performed By: #### 03789-7 ####DORYS Morocho (84011)[facility] ([facility])[address] [place] [address]Zhgofacxeh (Bld) [Mass/Vol]12.8 g/dLLow13.5-17.5UnToledo HospitalComment on above:Performed By: #### 83852-8 ####DORYS Morocho (96456)[facility] ([facility])[address] [place] [address]Ssxbjrm (BldA) [Moles/Vol]0.9 mmol/LNormal0.4-2.0[facility] - WestComment on above:Performed By: #### 45120-6 ####DORYS Morocho (90133)[facility] ([facility])[address] [place] [address]Yeatuyrdd (BldA) [Moles/Vol]3.8 mmol/LNormal3.5-5.3UnToledo HospitalComment on above:Performed By: #### 41277-5 ####DORYS Morocho (75810)[facility] ([facility])[address] [place] [address]ugoga (BldA) [Moles/Vol]136 mmol/YQsjxdw485-909UuodboipbjToledo HospitalComment on above:Performed By: #### 47754-5 ####DORYS Morocho (66760)[facility] ([facility])[address] [place] [address]Npt panel (BldV)on 77-60-7562Vlemj gap 4 (BldV) [Moles/Vol]9 mmol/LLow10.0 - 25.0 mmol/[facility] CenterBase excess Calc (BldV) [Moles/Vol]3.2 mmol/LHigh-2.0 - 3.0 mmol/[facility] Calcium.ionized (BldV) [Moles/Vol]1.15 mmol/L1.10 - 1.33 mmol/[facility] Medical CenterChloride (BldV) [Moles/Vol]104 mmol/L98 - 107 mmol/L [facility] HospitalCO2 (BldV) [Partial pressure]53 mm[Hg]High [facility] HospitalGlucose [Mass/Vol]97 mg/dL74 - 99 mg/dL [facility] HospitalHCO3 (Bld) [Moles/Vol]29.9 mmol/LHigh22.0 - 26.0 mmol/[facility] Medical CenterHematocrit Est (Bld) [Volume fraction]42 %41.0 - 52.0 %[facility] HospitalHemoglobin (Bld) [Mass/Vol]14.1 g/dL13.5 - 17.5 g/dLWyandot Memorial HospitalInhaled oxygen wrodiwlqzxfnz64 %[facility] HospitalInterpretation and review of laboratory resultsAbnormalUniCleveland Clinic Lutheran HospitalLactate (BldV) [Moles/Vol]1.7 mmol/L0.4 - 2.0 mmol/[facility] Oxygen (BldV) [Partial pressure]43 mm[Hg][facility] Memorial HospitalOxygen saturation in Venous blood71 %45 - 75 %[facility] Oxyhemoglobin (BldV) [Mass fraction]69.8 %45.0 - 75.0 %[facility] Memorial HospitalpH (BldV)7.36 [pH]7.33 - 7.43 pHWyandot Memorial Hospital Potassium (BldV) [Moles/Vol]4 mmol/L3.5 - 5.3 mmol/[facility] Medical CenterSodium (BldV) [Moles/Vol]139 mmol/L136 - 145 mmol/[facility] Medical CenterUnGreene Memorial HospitalAnion gap 4 (BldV) [Moles/Vol]9.0 mmol/LLow10.0-25.0UnToledo HospitalComment on above: Performed By: #### 63909-2 ####DROYS Morocho (60461)[facility] ([facility])[address] [place] [address]Unvl excess Calc (BldV) [Moles/Vol]3.2 mmol/L High-2.0-3.0UnToledo HospitalComment on above: Performed By: #### 16721-4 ####DORYS Morocho (36844)[facility] ([facility])[address] [place] [address]Ixolofg.ionized (BldV) [Moles/Vol]1.15 mmol/L Normal1.10-1.33[facility] - WestComment on above: Performed By: #### 98106-3 ####DORYS Morocho (86977)[facility] ([facility])[address]674 [place], [place] [address]Lrwaucck (BldV) [Moles/Vol]104 mmol/LNormal 98-107UnToledo HospitalComment on above:Performed By: #### 88158-1 ####DORYS Morocho (72619)[facility] ([facility])[address]314 [place], [place] [address]WE9 (BldV) [Partial pressure]53 mm BeVakb27-48 [facility] - WestComment on above:Performed By: #### 34243-9 ####DORYS Morocho (82525)[facility] ([facility])[address] [place] [address]Lnqnzni [Mass/Vol]97 mg/xJPojmst03-14GczvanrpciToledo HospitalComment on above:Performed By: #### 20355-6 ####DORYS Morocho (90688)[facility] ([facility])[address]698 [place], [place] [address]TJI8 (Bld) [Moles/Vol]29.9 mmol/LHigh22.0-26.0UnToledo HospitalComment on above:Performed By: #### 96441-7 ####DORYS Morocho (38433)[facility] ([facility])[address]26 [place], [place] [address]Ukajsybwpf Est (Bld) [Volume fraction]42.0 %Aphyps26.0-52.0[facility] - WestComment on above:Performed By: #### 26036-2 ####DORYS Morocho (00950)[facility] ([facility])[address] [place], [place] [address]Zevquuzvxn (Bld) [Mass/Vol]14.1 g/lYKqxmdb87.5-17.5[facility] - WestComment on above:Performed By: #### 00990-5 ####DORYS Morocho (35119)[facility] ([facility])[address]41 [place], [place] [address]Kqtgznz oxygen dqobdztitorhi90 %NormalUnToledo HospitalComment on above:Performed By: #### 38500-9 ####DORYS Morocho (32396)[facility] ([facility])[address]15 [place], [place] [address]Caprahl (BldV) [Moles/Vol]1.7 mmol/LNormal0.4-2.0UnToledo HospitalComment on above:Performed By: #### 30373-5 ####DORYS Morocho (35174)[facility] ([facility])[address] [place] [address]Pmynbd (BldV) [Partial pressure]43 mm GuIogoxj07-80RioxlikpklToledo HospitalComment on above:Performed By: #### 34647-5 ####DORYS Morocho (83079)[facility] ([facility])[address] [place] [address]49[address]Ebkinm saturation in Venous blood71 %Twunjy98-23IdocjmoiyrToledo HospitalComment on above:Performed By: #### 95674-0 ####DORYS Morocho (24363)[facility] ([facility])[address] [place] [address] 44[address]Otofymextfqyr (BldV) [Mass fraction] 69.8 %Nzqiji64.0-75.0UnToledo HospitalComment on above:Performed By: #### 53343-1 ####DORYS Morocho (62382)[facility] ([facility])[address] [place] [address]fI (BldV)7.36 [pH]Normal7.33-7.43 [facility] - WestComment on above:Performed By: #### 58518-4 ####DORYS Morocho (69063)[facility] ([facility])[address]88 [place], [place] [address]Rwoqmjioj (BldV) [Moles/Vol]4.0 mmol/LNormal3.5-5.3 [facility] - WestComment on above:Performed By: #### 74024-7 ####DORYS Morocho (40442)[facility] ([facility])[address] [place] [address]Uxvdir (BldV) [Moles/Vol]139 mmol/TGvueqi659-013 [facility] - WestComment on above:Performed By: #### 31846-5 ####DORYS Morocho (45938)[facility] ([facility])[address] [place] [address] 00213Euiwjyg Test strip manual (Bld) [Mass/Vol]on 07-29-2024 Glucose [Mass/Vol]117 mg/oEDqzi33 - 99 mg/dLUnGreene Memorial Hospital Interpretation and review of laboratory resultsAbKindred Hospital LimaUnGreene Memorial HospitalGlucose [Mass/Vol]117 mg/zUAsrw46-85 [facility] - WestComment on above:Performed By: #### 2341-6 ####DORYS Morocho ([id number])[facility] ([facility])[id number] [place] [address] 18029Zwvmnro [Mass/Vol]118 mg/iXNgfs30 - 99 mg/dLUnGreene Memorial HospitalInterpretation and review of laboratory resultsAbsaint joseph health centeral Wyand[facility] Memorial HospitalUnGreene Memorial HospitalGlucose [Mass/Vol]118 mg/wHZxnz41-18NqrvqrkehxToledo HospitalComment on above:Performed By: #### 2341-6 ####DORYS Morocho ([id number])[facility] ([facility])[id number] [place] [address] 28806Hmbgvhl [Mass/Vol]95 mg/dL74 - 99 mg/dLUnGreene Memorial HospitalInterpretation and review of laboratory resultsNoLutheran Hospital Glucose [Mass/Vol]95 mg/lHXznkwx88-59GepvxoetblToledo HospitalComment on above:Performed By: #### 2341-6 ####DORYS Morocho ([id number])[facility] ([facility])[address] [place], [place] [address]Vtammfx [Mass/Vol] 108 mg/sKBwst93 - 99 mg/dLUnGreene Memorial HospitalInterpretation and review of laboratory resultsAbKindred Hospital LimaUnGreene Memorial HospitalGlucose [Mass/Vol]108 mg/mLYbmz78-21RhglpundxrToledo HospitalComment on above:Performed By: #### 2341-6 ####DORYS Morocho ([id number])[facility] ([facility])[id number] [place] [address] 24145Jpqzeok [Mass/Vol]88 mg/dL74 - 99 mg/dLUnGreene Memorial HospitalInterpretation and review of laboratory resultsNoBluffton HospitalGlucose [Mass/Vol]88 mg/mNEudivh71-86SkuaweljchToledo HospitalComment on above:Performed By: #### 2341-6 ####DORYS Morocho ([id number])[facility] ([facility])[address] [place], [place] [address]Xrpzkgd [Mass/Vol]49 mg/dLLow74 - 99 mg/dLUnGreene Memorial HospitalGlucose [Mass/Vol]108 mg/vPAtkl27 - 99 mg/dLUnGreene Memorial HospitalInterpretation and review of laboratory resultsAbKindred Hospital LimaGlucose [Mass/Vol]108 mg/iZGzxt06-19XyfobepproToledo HospitalComment on above:Performed By: #### 2341-6 ####DORYS Morocho ([id number])[facility] ([facility])[address] [place], [place] [address]Xmhzoqm [Mass/Vol]49 mg/yHBma37-37LmnxrmtfkjToledo HospitalComment on above:Performed By: #### 2341-6 ####DORYS Morocho ([id number])[facility] ([facility])[address] [place], [place] [address]Tkvvfmgueo - Chemistry and Chemistry - challengeon [id number] excess Calc (Bld) [Moles/Vol]3.7 mmol/LHigh-2.0 - 3.0 mmol/[facility] CenterCO2 (Bld) [Partial pressure]43 mm[Hg] [facility] CenterHCO3 (Bld) [Moles/Vol]28.5 mmol/LHigh22.0 - 26.0 mmol/[facility] CenterOxygen (Bld) [Partial pressure]233 mm[Hg][facility] CenterOxyhemoglobin (BldA) [Mass fraction] 97.5 %94.0 - 98.0 %[facility] HospitalpH (Bld)7.43 [pH]High7.38 - 7.42 pHWyandot Memorial HospitalMagnesiumon 30-74-9357Oqadiytnz [Mass/Vol]1.82 mg/dL1.60 - 2.40 mg/dLWyandot Memorial HospitalMagnesium [Mass/Vol]1.82 mg/dLNormal1.60-2.40[facility] Comment on above:Performed By: #### 78694-3 ####DORYS Morocho ([id number])[facility] ([facility])[address] [place], [place] [address]Qjlzjkjuq [Mass/Vol] 1.88 mg/dL1.60 - 2.40 mg/dLWyandot Memorial HospitalMagnesium [Mass/Vol] 1.82 mg/dL1.60 - 2.40 mg/dLWyandot Memorial HospitalMagnesium [Mass/Vol] 1.88 mg/dLNormal1.60-2.40[facility] - WestComment on above:Order Comment: Next DrawPerformed By: #### 87260-1 ####DORYS Morocho ([id number])[facility] ([facility])[address] [place] [address] Magnesium [Mass/Vol]on 92-44-1952Saxgnumrfrguox and review of laboratory results NormalUnGreene Memorial HospitalInterpretation and review of laboratory resultsNoalUniCleveland Clinic Lutheran HospitalInterpretation and review of laboratory resultsNormalUniCleveland Clinic Lutheran HospitalNo Panel Informationon 57-03-5696WvbuypclucWyandot Memorial HospitalInhaled oxygen xiolcchkheqty93 % [facility] HospitalInterpretation and review of laboratory results [facility] CampusUnOhio State Health SystemUnGreene Memorial HospitalUnGreene Memorial HospitalPT and aPTT panel Coag (PPP)on 08-87-1764mSPL Coag (PPP) [Time]24 [facility] CampusIN Coag (PPP) [Relative time]1.3 {INR}High0.9 - 1.1[facility] HospitalInterpretation and review of laboratory resultsAbnormalUniCleveland Clinic Lutheran HospitalPT Coag (PPP) [Time] 14.7 sHigniGreene Memorial HospitalaPTT Coag (PPP) [Time]24 zTdx29-10EwtdatysoxLake County Memorial Hospital - WestComment on above:Order Comment: The APTT is no longer used for monitoring Unfractionated Heparin Therapy. For monitoring Heparin Therapy, use the Heparin Assay.Performed By: #### 77655-5 ####DORYS Morocho ([id number])[facility] ([facility])[address] [place] [address]LBW Coag (PPP) [Relative time]1.3High0.9-1.1[facility] - WestComment on above:Order Comment: The APTT is no longer used for monitoring Unfractionated Heparin Therapy. For monitoring Heparin Therapy, use the Heparin Assay.Performed By: #### 43088-2 ####DORYS Morocho ([id number])[facility] ([facility])[address] [place], [place] [address]PJ Coag (PPP) [Time]14.7 sHigh 9.8-12.8[facility] - WestComment on above:Order Comment: The APTT is no longer used for monitoring Unfractionated Heparin Therapy. For monitoring Heparin Therapy, use the Heparin Assay.Performed By: #### 07133-9 ####DORYS HAINESTZDENILSON Morocho ([id number])[facility] ([facility])[address] [place], [place] [address]xDFA Coag (PPP) [Time]26 [facility] CampusINR Coag (PPP) [Relative time]1.2 {INR}High0.9 - 1.1[facility] HospitalInterpretation and review of laboratory resultsAbnoCleveland Clinic Avon HospitalPT Coag (PPP) [Time]13.7 Marion HospitalUnGreene Memorial HospitalUnGreene Memorial HospitalaPTT Coag (PPP) [Time]26 vZxv66-16VcnamaxcrkToledo HospitalComment on above:Order Comment: The APTT is no longer used for monitoring Unfractionated Heparin Therapy. For monitoring Heparin Therapy, use the Heparin Assay.Performed By: #### 39753-9 ####DORYS Morocho ([id number])[facility] ([facility])[address] [place] [address]LUI Coag (PPP) [Relative time]1.2High0.9-1.1UnToledo Hospital Comment on above:Order Comment: The APTT is no longer used for monitoring Unfractionated Heparin Therapy. For monitoring Heparin Therapy, use the Heparin Assay.Performed By: #### 18466-2 ####DORYS Morocho ([id number])[facility] ([facility])[address] [place] [address]CI Coag (PPP) [Time]13.7 sHigh 9.8-12.8UnToledo HospitalComment on above:Order Comment: The APTT is no longer used for monitoring Unfractionated Heparin Therapy. For monitoring Heparin Therapy, use the Heparin Assay.Performed By: #### 14311-8 ####DORYS Morocho ([id number])[facility] ([facility])[address] [place] [address]Srvyk function 2000 panelon 48-17-1960Ttiubfi BCP dye [Mass/Vol]3.5 g/dL3.4 - 5.0 g/dLUnGreene Memorial HospitalAnion gap [Moles/Vol]15 mmol/L10 - 20 mmol/[facility] Medical CenterCalcium [Mass/Vol]8.1 mg/dLLow8.6 - 10.6 mg/dLUnGreene Memorial HospitalChloride [Moles/Vol]106 mmol/L98 - 107 mmol/[facility] Medical CenterCO2 [Moles/Vol]27 mmol/L21 - 32 mmol/[facility] Medical CenterCreatinine [Mass/Vol]0.97 mg/dL0.50 - 1.30 mg/dLUnGreene Memorial HospitaleGFR- PINF [facility] HospitalGlucose [Mass/Vol]141 mg/aKEhvg29 - 99 mg/dL [facility] HospitalInterpretation and review of laboratory results AbnormalUnGreene Memorial HospitalPhosphate [Mass/Vol]2.5 mg/dL2.5 - 4.9 mg/dLUnGreene Memorial HospitalPotassium [Moles/Vol]4.2 mmol/L3.5 - 5.3 mmol/[facility]'s Medical CenterSodium [Moles/Vol]144 mmol/L136 - 145 mmol/[facility]'s Medical CenterUrea nitrogen [Mass/Vol]10 mg/dL6 - 23 mg/dLUnGreene Memorial HospitalAlbumin BCP dye [Mass/Vol]3.5 g/dLNormal 3.4-5.0UnToledo HospitalComment on above:Performed By: #### 24719-2 ####DORYS Morocho ([id number])[facility] ([facility])[address] [place] [address]Ojhxm gap [Moles/Vol]15 mmol/WQzxyoh17-29LzawqbwtsfToledo HospitalComment on above:Performed By: #### 31055-8 ####DORYS Morocho ([id number])[facility] ([facility])[address] [place] [address]Nksegti [Mass/Vol]8.1 mg/dLLow8.6-10.6UnToledo HospitalComment on above:Performed By: #### 02651-9 ####DORYS Morocho ([id number])[facility] ([facility])[address] [place] [address]Puydjxfi [Moles/Vol]106 mmol/WKrdvme40-829WonnacwargToledo Hospital Comment on above:Performed By: #### 53368-5 ####DORYS Morocho ([id number])[facility] ([facility])[address] [place], [place] [address]CY1 [Moles/Vol]27 mmol/HCbfkdh85-27UeibdrokxgLake County Memorial Hospital - WestComment on above: Performed By: #### 35382-5 ####DORYS Morocho ([id number])[facility] ([facility])[address] [place], [place] [address]Tzmxqkgimv [Mass/Vol]0.97 mg/dLNormal0.50-1.30 [facility] WestComment on above:Performed By: #### 73353-8 ####DORYS Morocho ([id number])[facility] ([facility])[address] [place], [place] [address]YXL/1.73 sq M.predicted MDRD (S/P/Bld) [Vol rate/Area] mL/min/{1.73_m2}Normal>60UnToledo HospitalComment on above:Result Comment: Calculations of estimated GFR are performed using the 2020 CKD-EPI Study Refit equation without the race variable for the IDMS-Traceable creatinine methods. https://jasn.asnjournals.org/content/early//ASN.5848577037Gxtjgoeoi By: #### 70101-1 ####DORYS Morocho ([id number])[facility] ([facility])[address] [place], [place] [address]Bxdiyik [Mass/Vol]141 mg/zYYsdi92-16QbijfgffjsToledo HospitalComment on above:Performed By: #### 36889-0 ####DORYS Morocho ([id number])[facility] ([facility])[address] [place], [place] [address]Ayoadyjtx [Mass/Vol]2.5 mg/dLNormal2.5-4.9[facility] WestComment on above:Result Comment: The performance characteristics of phosphorus testing in heparinized plasma have been validated by the individual laboratory site where testing is performed. Testing on heparinized plasma is not approved by the FDA; however, such approval is not necessary. Performed By: #### 46684-5 ####DORYS Morocho ([id number])[facility] ([facility])[address] [place], [place] [address]Wehhuiabc [Moles/Vol]4.2 mmol/LNormal3.5-5.3 [facility] WestComment on above:Performed By: #### 04470-4 ####DORYS Morocho ([id number])[facility] ([facility])[address] [place], [place] [address]Tlngep [Moles/Vol]144 mmol/GLbmqxt737-920UkobxvvsajToledo HospitalComment on above:Performed By: #### 55928-3 ####DORYS Morocho ([id number])[facility] ([facility])[address] [place] [address]Lqzd nitrogen [Mass/Vol]10 mg/dLNormal6-23UnToledo HospitalComment on above:Performed By: #### 90224-6 ####DORYS Morocho ([id number])[facility] ([facility])[address] [place] [address]Lpwotpb BCP dye [Mass/Vol]4 g/dL3.4 - 5.0 g/dLUnGreene Memorial HospitalAnion gap [Moles/Vol]10 mmol/L10 - 20 mmol/[facility] Medical CenterCalcium [Mass/Vol]8.8 mg/dL8.6 - 10.6 mg/dLUnGreene Memorial HospitalChloride [Moles/Vol]106 mmol/L98 - 107 mmol/[facility] CenterCO2 [Moles/Vol]30 mmol/L21 - 32 mmol/[facility] CenterCreatinine [Mass/Vol]0.89 mg/dL0.50 - 1.30 mg/dLUnGreene Memorial HospitaleGFR- PINF [facility] HospitalGlucose [Mass/Vol]96 mg/dL74 - 99 mg/dL [facility] HospitalInterpretation and review of laboratory results AbnormalUnGreene Memorial HospitalPhosphate [Mass/Vol]5.2 mg/dLHigh2.5 - 4.9 mg/dLUnGreene Memorial HospitalPotassium [Moles/Vol]4.3 mmol/L3.5 - 5.3 mmol/[facility] Medical CenterSodium [Moles/Vol]142 mmol/L136 - 145 mmol/[facility] Medical CenterUrea nitrogen [Mass/Vol]11 mg/dL6 - 23 mg/dLWyandot Memorial HospitalAlbumin BCP dye [Mass/Vol]4 g/dL3.4 - 5.0 g/dLUnGreene Memorial HospitalAnion gap [Moles/Vol]16 mmol/L10 - 20 mmol/[facility] CenterCalcium [Mass/Vol]8.5 mg/dLLow8.6 - 10.6 mg/dLUnGreene Memorial HospitalChloride [Moles/Vol]104 mmol/L98 - 107 mmol/[facility] Medical CenterCO2 [Moles/Vol]27 mmol/L21 - 32 mmol/L [facility] HospitalCreatinine [Mass/Vol]0.79 mg/dL0.50 - 1.30 mg/dLUnGreene Memorial HospitaleGFR- PINFUniCleveland Clinic Lutheran HospitalGlucose [Mass/Vol]98 mg/dL74 - 99 mg/dLUnGreene Memorial HospitalInterpretation and review of laboratory resultsAbnoalUUniversity Hospitals Geauga Medical CenterPhosphate [Mass/Vol]5.8 mg/dLHigh2.5 - 4.9 mg/dLUnGreene Memorial HospitalPotassium [Moles/Vol]4 mmol/L3.5 - 5.3 mmol/[facility] Medical CenterSodium [Moles/Vol]143 mmol/L136 - 145 mmol/[facility] Medical CenterUrea nitrogen [Mass/Vol]10 mg/dL6 - 23 mg/dLUnGreene Memorial HospitalAlbumin BCP dye [Mass/Vol]4.0 g/dLNormal3.4-5.0UnToledo HospitalComment on above:Performed By: #### 32221-2 ####DORYS Morocho ([id number])[facility] ([facility])[address] [place], [place] [address]Anion gap [Moles/Vol]10 mmol/AHikfpz13-90QmrjuewgkoToledo HospitalComment on above:Performed By: #### 33009-4 ####DORYS RIOS L ([id number])[facility] ([facility])[address] [place], [place] [address]Khuyfoz [Mass/Vol]8.8 mg/dLNormal8.6-10.6[facility] Comment on above:Performed By: #### 60029-5 ####DORYS RIOS L ([id number])[facility] ([facility])[address] [place], [place] [address]Mggsjigc [Moles/Vol] 106 mmol/AObiyyk41-136JyjyvoudyxToledo HospitalComment on above:Performed By: #### 22199-2 ####DORYS RIOS L ([id number])[facility] ([facility])[address] [place], [place] [address]NE2 [Moles/Vol]30 mmol/PBtmuuc14-26 [facility] - WestComment on above:Performed By: #### 69683-9 ####DORYS RIOS L ([id number])[facility] ([facility])[address] [place], [place] [address]Bokuxktqvu [Mass/Vol]0.89 mg/dLNormal0.50-1.30 [facility] - WestComment on above:Performed By: #### 82952-8 ####DORYS Morocho ([id number])[facility] ([facility])[address] [place], [place] [address]VGI/1.73 sq M.predicted MDRD (S/P/Bld) [Vol rate/Area] mL/min/{1.73_m2}Normal>60UnToledo HospitalComment on above:Result Comment: Calculations of estimated GFR are performed using the 2020 CKD-EPI Study Refit equation without the race variable for the IDMS-Traceable creatinine methods. https://jasn.asnjournals.org/content//ASN.1464333180Jzdlpggzs By: #### 27423-3 ####DORYS Morocho (82481)[facility] ([facility])[address] [place], [place] [address]Qmbyfgm [Mass/Vol]96 mg/kXRflppq46-09CraedefnalLake County Memorial Hospital - WestComment on above:Performed By: #### 14266-2 ####DORYS Morocho (21688)[facility] ([facility])[address] [place], [place] [address]Hpcxespzt [Mass/Vol]5.2 mg/dLHigh2.5-4.9UnToledo HospitalComment on above:Result Comment: MILD HEMOLYSIS DETECTED. The result may be falsely elevated due to hemolysis or other interferents. Clinical correlation is recommended. Repeat testing may be considered. The performance characteristics of phosphorus testing in heparinized plasma have been validated by the individual laboratory site where testing is performed. Testing on heparinized plasma is not approved by the FDA; however, such approval is not necessary.Performed By: #### 32429-5 ####DORYS Morocho ([id number])[facility] ([facility])[address] [place], [place] [address]Kykdztiaf [Moles/Vol]4.3 mmol/LNormal3.5-5.3[facility] Comment on above:Result Comment: MILD HEMOLYSIS DETECTED. The result may be falsely elevated due to hemolysis or other interferents. Clinical correlation is recommended. Repeat testing may be considered.Performed By: #### 55912-1 ####DORYS Morocho ([id number])[facility] ([facility])[address] [place], [place] [address]Usmwge [Moles/Vol]142 mmol/TLafkqa451-074WmqxcyreqrLake County Memorial Hospital - WestComment on above:Performed By: #### 25467-4 ####DORYS Morocho ([id number])[facility] ([facility])[address] [place], [place] [address]Cirs nitrogen [Mass/Vol]11 mg/dLNormal6-23UnToledo HospitalComment on above:Performed By: #### 58527-2 ####DORYS Morocho (60784)[facility] ([facility])[address] [place], [place] [address]FOO Clot Global Profileon 87-44-5528USAKZ42 deg63.0 - 78.0 [facility] YRPN915 mg/dL278 - 581 mg/dLWyandot Memorial HospitalInterpretation and review of laboratory resultsAbnoFlower HospitalK (Clot Kinetics)1.3 min0.8 - 2.[address] [facility] ( Gee Amplitude) FF18 mm15.0 - 32.[address] [facility] [facility] (Max Amplitude) K59 mm52.0 - 69.[address] [facility] (Max Amplitude) RT60 mm52.0 - 70.0 [facility] HospitalR (Reaction Time) K4.4 minLow4.6 - 9.1 [facility] (Reaction Time) KH4.2 minLow4.3 - 8.3 minUnGreene Memorial HospitalUnGreene Memorial HospitalTHROMBOELASTOGRAPH CLOTTING GLOBAL PROFILEon 79-71-2213Hmga angle.kaolin nwcbyje04.0 mfyTuavrm49.0-78.0UnToledo HospitalComment on above:Performed By: #### POCTEGLO ####DORYS Morocho ([id number])[facility] ([facility])[address] [place], [place] [address]Ijov formation.kaolin induced1.3 minNormal0.8-2.1UnToledo HospitalComment on above:Performed By: #### POCTEGLO ####DORYS Morocho (38508)[facility] ([facility])[address] [place], [place] [address]Idwy initiation.kaolin induced4.4 minLow4.6-9.1[facility] - WestComment on above:Performed By: #### POCTEGLO ####DORYS Morocho (25904)[facility] ([facility])[address] [place], [place] [address]Ukdx initiation.kaolin induced^post heparin neutralization4.2 minLow4.3-8.3[facility] - WestComment on above:Performed By: #### POCTEGLO ####DORYS DIMASMOTZER L ([id number])[facility] ([facility])[address] [place], [place] [address]Ghqyiwsqtb264 mg/mEZyzsns584-491XbeeemsoapLake County Memorial Hospital - WestComment on above:Performed By: #### POCTEGLO ####DORYS DIMASMOTZER L (16209)[facility] ([facility])[address] [place], [place] [address]Xwueczk clot strength amplitude.kaolin znmeirt81.0 gkDtuscm95.0-69.0UnToledo HospitalComment on above:Performed By: #### POCTEGLO ####DORYS RIOS L ([id number])[facility] ([facility])[address] [place] [address]Kazwsby clot strength amplitude.kaolin+tissue factor .0 mmNormal 52.0-70.0[facility] - WestComment on above:Performed By: #### POCTEGLO ####DORYS DIMASMOTZER L ([id number])[facility] ([facility])[address] [place] [address]Iwchluc clot strength amplitude.tissue factor induced+platelet glycoprotein IIb-IIIa receptor rkspwqync38.0 klKnltjv71.0-32.0 [facility] - WestComment on above:Performed By: #### POCTEGLO ####DORYS HAINESTZER L ([id number])[facility] ([facility])[address] [place] [address]PZGUC/VERIFY ABORHon 83-66-9901SGM group Nom (Bld)O [facility] Conneaut Medical CenterComment on above:Order Comment: This is for confirming/verifying history of ABORh on file for transfusion of bloodproducts. If this is not for transfusion, please order an ABO/RH [[id number]]. If you have any questions or unsure what to order, please call the blood bank.Performed By: #### VERAB ####DORYS RIOS L ([id number])[facility] ([facility])[address] [place], [place] [address]T Ag Ql (Bld)PositiveNoal [facility] - WestComment on above:Order Comment: This is for confirming/verifying history of ABORh on file for transfusion of bloodproducts. If this is not for transfusion, please order an ABO/RH [[id number]]. If you have any questions or unsure what to order, please call the blood bank. Performed By: #### VERAB ####DORYS Morocho ([id number])[facility] ([facility])[address] [place], [place] [address]EDSPRV ABO/Rh Group Teston 07-29-2024 ABO group Nom (Bld)OUUniversity Hospitals Geauga Medical CenterD Ag Ql (Bld)Positive [facility] CenterXR CHEST 1 VIEWon [id number] CHEST 1 VIEWInterpreted By: Lj Powell, STUDY: XR CHEST 1 VIEW; 07/29/2024 6:10 am INDICATION: Signs/Symptoms:intubated.. COMPARISON: Exam dated 07/28/2024 ACCESSION NUMBER(S): [id number] ORDERING CLINICIAN: TONIE BLANKENSHIP FINDINGS: AP radiograph of the chest was provided. Endotracheal tube tip projects 3.7 cm above the wesley. Enteric tube projects over the esophagus with tip projecting over the left upper quadrant overlying the fundus. CARDIOMEDIASTINAL SILHOUETTE: Cardiomediastinal silhouette is normal in size and configuration. LUNGS: Lungs are clear. ABDOMEN: No remarkable upper abdominal findings. BONES: No acute osseous changes. IMPRESSION: 1. No evidence of acute cardiopulmonary process. 2. Medical devices as above. Enteric tube tip projects over the gastric fundus and is directed superiorly. It has been slightly retracted from prior exam. MACRO: None Signed by: Lj Powell 07/29/2024 8:56 AM Dictation workstation: [id number]ty Hospitals Conneaut Medical CenterXR Chest Single viewon [id number] MMODALCleveland Clinic Hillcrest Hospital Work Phone: Radiology Study observation (narrative)[facility] Work Phone: XR Chest Single viewOrdered By: Lj Powell on [id number]t Memorial Hospital Work Phone: XR tomography Unspecified body regionon 07-29-2024 IMAGINGACUTE TOXICOLOGY PANEL, BLOODon 61-87-7654Kwkshnagxqijf [Mass/Vol]ug/mL Tguiad43.0-30.0UnToledo HospitalComment on above: Performed By: #### LETICIAL ####DORYS Morocho ([id number])[facility] ([facility])[address] [place] [address]Tjbdvcgtfcs [Mass/Vol]mg/dLNormal4-20UnToledo HospitalComment on above:Performed By: #### PAXTON ####DORYS Morocho ([id number])[facility] ([facility])[address] [place] [address]Gdwlm Toxicology Panel, Bloodon 44-73-9457Iaieykiihtzbo [Mass/Vol]ug/mL 10.0 - 30.0 ug/mLUnGreene Memorial HospitalEthanol [Mass/Vol]mg/dLNINF - 10 mg/dLUnGreene Memorial HospitalInterpretation and review of laboratory resultsNormalUniCleveland Clinic Lutheran HospitalSalicylates [Mass/Vol]mg/dL4 - 20 mg/dLUnGreene Memorial HospitalAlcoholon 08-58-6593Btpksbi [Mass/Vol] mg/dLNINF - 10 mg/dLUnGreene Memorial HospitalBlood type and Indirect antibody screen panel (Bld)on 71-48-1769ONR group Nom (Bld)OUniCleveland Clinic Lutheran HospitalBlmayo clinic hospital group antibody screen QlNegativeUnGreene Memorial HospitalD Ag Ql (Bld)PositiveUnGreene Memorial HospitalUnGreene Memorial HospitalABO group Nom (Bld)ONormalUnToledo HospitalComment on above:Performed By: #### 39868-9 ####DORYS Morocho ([id number])[facility] ([facility])[address] [place] [address] Blood group antibody screen QlNegativeNoGrant HospitalComment on above:Performed By: #### 59044-4 ####DORYS Morocho (61775)[facility] ([facility])[address] [place] [place], [place] [address]S Ag Ql (Bld)PositiveNoGrant HospitalComment on above:Result Comment: 2nd ABO test required. Order and Collect VERABPerformed By: #### [id number] ####DORYS Morocho ([id number])[facility] ([facility])[address] [place], [place] [address]IWO W Auto Differential panel (Bld)on 07-28-2024 Basophils (Bld) [#/Vol]0.08 10*3/[facility] Basophils/100 WBC (Bld)0.5 %0.0 - 2.0 %[facility] Eosinophils (Bld) [#/Vol]0.06 10*3/[facility] Eosinophils/100 WBC (Bld)0.4 %0.0 - 6.0 %[facility] Erythrocyte distribution width (RBC) [Ratio]12.5 %11.5 - 14.5 %[facility] HospitalHematocrit (Bld) [Volume fraction]43 %41.0 - 52.0 % [facility] HospitalHemoglobin (Bld) [Mass/Vol]15.4 g/dL13.5 - 17.5 g/dLUnGreene Memorial HospitalImmoberly regional medical center granulocytes (Bld) [#/Vol]0.25 10*3/[facility] HospitalImmoberly regional medical center granulocytes/100 WBC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 directed to the laboratory medical directors.Result Comment: CUTOFF LEVEL: 50 NG/MLPerformed By: #### DRUG3 ####DORYS HAINESTZER L ([id number])[facility] ([facility])[id number] [place] [address] 51977meebgIER+Norfentanyl Screen Ql (U)PositiveAbnormal Presumptive NegativeLake County Memorial Hospital - WestComment on above:Order Comment: Drug screen results are presumptive and should not be used to assesscompliance with prescribed medication. Contact the performing [facility] laboratoryto add-on definitive confirmatory testing if clinically indicated.Toxicology screening results are reported qualitatively. The concentration must???be greater than or equal to the cutoff to be reported as positive. The concentrationat which the screening test can detect an individual drug or metabolite varies.The absence of expected drug(s) and/or drug metabolite(s) may indicate non-compliance,inappropriate timing of specimen collection relative to drug administration, poor drugabsorption, diluted/adulterated urine, or limitations oftesting. For medical purposesonly; not valid for forensic use.Interpretive questions should be directed to the laboratory medical directors.Result Comment: CUTOFF LEVEL: 5 NG/MLPerformed By: #### DRUG3 ####DORYS Morocho ([id number])[facility] ([facility])[address] [place], [place] [id number] Screen Ql (U)NegativeNormalPresholy cross hospitaltive [facility] HospitalComment on above:Order Comment: Drug screen results are presumptive and should not be used to assesscompliance with prescribed medication. Contact the performing [facility] laboratoryto add-on definitive confirmatory testing if clinically indicated.Toxicology screening results are reported qualitatively. The concentration must???be greater than or equal to the cutoff to be reported as positive. The concentrationat which the screening test can detect an individual drug or metabolite varies.The absence of expected drug(s) and/or drug metabolite(s) may indicate non-compliance,inappropriate timing of specimen collection relative to drug administration, poor drugabsorption, diluted/adulterated urine, or limitations oftesting. For medical purposesonly; not valid for forensic use.Interpretive questions should be directed to the laboratory medical directors.Result Comment: CUTOFF LEVEL: 150 NG/ML The metabolite J-cmvle-llkuufpmmhmvli (LAAM) is not detected by this method in concentrations that would be found in the urine of patients on LAAM therapy.Performed By: #### DRUG3 ####DORYS Morocho ([id number])[facility] ([facility])[id number] [place] [address] 83736Niesxlq Screen Ql (U)NegativeNormalPresumptive [facility] HospitalComment on above:Order Comment: Drug screen results are presumptive and should not be used to assesscompliance with p rescribed medication. Contact the performing [facility] laboratoryto add-on definitive confirmatory testing if clinically indicated.Toxicology screening results are reported qualitatively. The concentration must???be greater than or equal to the cutoff to be reported as positive. The concentrationat which the screening test can detect an individual drug or metabolite varies.The absence of expected drug(s) and/or drug metabolite(s) may indicate non-compliance,inappropriate timing of specimen collection relative to drug administration, poor drugabsorption, diluted/adulterated urine, or limitations oftesting. For medical purposesonly; not valid for forensic use.Interpretive questions should be direc kendrick to the laboratory medical directors.Result Comment: CUTOFF LEVEL: 300 NG/ML The opiate screen does not detect fentanyl, meperidine, or tramadol. Oxycodone is not consistently detected (refer to Oxycodone Screen, Urine result).Performed By: #### DRUG3 ####DORYS Morocho ([id number])[facility] ([facility])[address] [place] [address] oxyCODONE+oxyMORphone Screen Ql (U)NegativeNormalPresumptive NegativeLake County Memorial Hospital - WestComment on above:Order Comment: Drug screen results are presumptive and should not be used to assesscompliance with p rescribed medication. Contact the performing [facility] laboratoryto add-on definitive confirmatory testing if clinically indicated.Toxicology screening results are reported qualitatively. The concentration must???be greater than or equal to the cutoff to be reported as positive. The concentrationat which the screening test can detect an individual drug or metabolite varies.The absence of expected drug(s) and/or drug metabolite(s) may indicate non-compliance,inappropriate timing of specimen collection relative to drug administration, poor drugabsorption, diluted/adulterated urine, or limitations oftesting. For medical purposesonly; not valid for forensic use.Interpretive questions should be direc kendrick to the laboratory medical directors.Result Comment: CUTOFF LEVEL: 100 NG/ML This test will accurately detect both oxycodone and oxymorphone.Performed By: #### DRUG3 ####DORYS Morocho ([id number])[facility] ([facility])[address] [place], [place] [address]Jommoxkxlimml Ql (U)NegativeNormalPresumptive Negative [facility] Hospital - WestComment on above:Order Comment: Drug screen results are presumptive and should not be used to assesscompliance with prescribed medication. Contact the performing [facility] laboratoryto add-on definitive confirmatory testing if clinically indicated.Toxicology screening results are reported qualitatively. The concentration must???be greater than or equal to the cutoff to be reported as positive. The concentrationat which the screening test can detect an individual drug or metabolite varies.The absence of expected drug(s) and/or drug metabolite(s) may indicate non- compliance,inappropriate timing of specimen collection relative to drug administration, poor drugabsorption, diluted/adulterated urine, or limitations oftesting. For medical purposesonly; not valid for forensic use.Interpretive questions should be directed to the laboratory medical directors.Result Comment: CUTOFF LEVEL: 25 NG/ML Cross-reactivity has been reported with dextromethorphan.Performed By: #### DRUG3 ####DORYS Morocho ([id number])[facility] ([facility])[address] [place] [address] 32555Htqf Screen, Urineon 43-13-9282Nqyunnvzzrcy Screen Ql (U)NegativePresumptive [facility] GlenbeighBarbiturates Screen Ql (U)PositiveAbnormalPresumptive [facility]ighBenzodiazepines Ql (U)PositiveAbnormalPresumptive [facility] GlenbeighBenzoylecgonine Screen Ql (U)PositiveAbnormalPresumptive [facility] GlenbeighCannabinoids Screen Ql (U)Positive AbnormalPresumptive [facility] fentaNYL+Norfentanyl Screen Ql (U)PositiveAbnormalPresumptive [facility] GlenbeighInterpretation and review of laboratory resultsAbrmal [facility] HospitalMethadone Screen Ql (U)NegativePresumptive [facility] GlenbeighOpiates Screen Ql (U)Negative Presumptive [facility] GlenbeighoxyCODONE+oxyMORphone Screen Ql (U)NegativePresumptive [facility] Phencyclidine Ql (U)NegativePresumptive [facility] GlenbeighUnGreene Memorial HospitalEthanolon 75-86-7612Mnakbgg [Mass/Vol] mg/dLNormal<=10L[facility] Hospital - WestComment on above: Result Comment: For medical use only.Performed By: #### 5643-2 #### DORYS Morocho ([id number]) [facility] ([facility]) [address] [place] [address] 54142Fenvrctvq By: #### PAXTON ####DORYS Morocho ([id number])[facility] ([facility])[address] [place], [place] [address]Qmgwmyc [Mass/Vol]on 15-81-0904Tkybhyfdvzxive and review of laboratory resultsNormalUTriHealth McCullough-Hyde Memorial HospitalGas panel (BldV)on 88-20-4081Nntag gap 4 (BldV) [Moles/Vol]10 mmol/L10.0 - 25.0 mmol/[facility] CenterBase excess Calc (BldV) [Moles/Vol]-2.4000 mmol/LLow-2.0 - 3.0 mmol/[facility] Medical CenterCalcium.ionized (BldV) [Moles/Vol] 1.07 mmol/LLow1.10 - 1.33 mmol/[facility] Medical CenterChloride (BldV) [Moles/Vol]109 mmol/LHigh98 - 107 mmol/[facility] Medical CenterCO2 (BldV) [Partial pressure]48 mm[Hg][facility] HospitalGlucose [Mass/Vol]87 mg/dL74 - 99 mg/dLUnGreene Memorial HospitalHCO3 (Bld) [Moles/Vol]24.2 mmol/L22.0 - 26.0 mmol/[facility] Hematocrit Est (Bld) [Volume fraction]38 %Low41.0 - 52.0 %[facility] HospitalHemoglobin (Bld) [Mass/Vol]12.7 g/dLLow13.5 - 17.5 g/dLWyandot Memorial HospitalInhaled oxygen uwrxejnkjudqu06 %[facility] Memorial HospitalInterpretation and review of laboratory resultsAbnormSumma HealthLactate (BldV) [Moles/Vol]2.2 mmol/LHigh0.4 - 2.0 mmol/L [facility] HospitalOxygen (BldV) [Partial pressure]49 mm[Hg]High [facility] HospitalOxygen saturation in Venous blood79 %High45 - 75 %[facility] Memorial HospitalOxyhemoglobin (BldV) [Mass fraction]76.8 % High45.0 - 75.0 %[facility] Memorial HospitalpH (BldV)7.31 [pH]Low7.33 - 7.43 pHUnGreene Memorial HospitalPotassium (BldV) [Moles/Vol]3.5 mmol/L 3.5 - 5.3 mmol/[facility] Medical CenterSodium (BldV) [Moles/Vol]140 mmol/L136 - 145 mmol/[facility]'s Medical CenterUnGreene Memorial HospitalAnion gap 4 (BldV) [Moles/Vol]10.0 mmol/BJvndkt68.0-25.0UnToledo HospitalComment on above:Performed By: #### 99311-2 ####ODRYS Morocho ([id number])[facility] ([facility])[address] [place], [place] [address]Icrs excess Calc (BldV) [Moles/Vol]-2.4000 mmol/LLow-2.0-3.0UnToledo HospitalComment on above:Performed By: #### 05342-1 ####DORYS Morocho ([id number])[facility] ([facility])[address] [place], [place] [address]Otkclkn.ionized (BldV) [Moles/Vol]1.07 mmol/LLow1.10-1.33UnToledo HospitalComment on above:Performed By: #### 40394-5 ####DORYS Morocho ([id number])[facility] ([facility])[address] [place], [place] [address]Romzzeqw (BldV) [Moles/Vol]109 mmol/IOdnx92-414CufuvgbgyiToledo HospitalComment on above:Performed By: #### 21683-3 ####DORYS Morocho ([id number])[facility] ([facility])[address] [place], [place] [address]EA9 (BldV) [Partial pressure]48 mm NrBncmyj17-05KolrpyooiqLake County Memorial Hospital - WestComment on above:Performed By: #### 45000-7 ####DORYS Morocho ([id number])[facility] ([facility])[address] [place], [place] [address]Ukveukv [Mass/Vol]87 mg/qQZhnsqu85-26DxhngilavbToledo HospitalComment on above:Performed By: #### 81876-0 ####DORYS Morocho ([id number])[facility] ([facility])[address] [place], [place] [address]HMK0 (Bld) [Moles/Vol]24.2 mmol/ARlgiwd61.0-26.0L[facility] Hospital - WestComment on above:Performed By: #### 69784-0 ####DORYS Morocho ([id number])[facility] ([facility])[address] [place], [place] [address]Shdwvbfphc Est (Bld) [Volume fraction]38.0 %Low41.0-52.0L[facility] - WestComment on above:Performed By: #### 84527-9 ####DORYS Morocho ([id number])[facility] ([facility])[address] [place], [place] [address]Boqlrwvpyt (Bld) [Mass/Vol]12.7 g/dLLow13.5-17.5[facility] Comment on above:Performed By: #### 52010-8 ####DORYS Morocho ([id number])[facility] ([facility])[address] [place], [place] [address]Wlkxflb oxygen qqhvxpimgphqb83 %NormalUnToledo HospitalComment on above:Performed By: #### 04689-6 ####DORYS Morocho ([id number])[facility] ([facility])[address] [place], [place] [address]Ekptvcd (BldV) [Moles/Vol]2.2 mmol/L High0.4-2.0UnToledo HospitalComment on above: Performed By: #### 14664-0 ####DORYS Morocho ([id number])[facility] ([facility])[address] [place], [place] [address]Qiwclz (BldV) [Partial pressure]49 mm HgHigh 35-45UnToledo HospitalComment on above:Performed By: #### 23555-4 ####DORYS Morocho ([id number])[facility] ([facility])[address] [place] [address]Sefwwo saturation in Venous blood79 %Dwkh99-96 [facility] - WestComment on above:Performed By: #### 68883-7 ####DORYS Morocho ([id number])[facility] ([facility])[address] [place] [address]65[address]Kruvpozqcamle (BldV) [Mass fraction]76.8 %High45.0-75.0 [facility] - WestComment on above:Performed By: #### 52791-5 ####DORYS Morocho ([id number])[facility] ([facility])[address] [place] [address] 38715sV (BldV)7.31 [pH]Low7.33-7.43UnToledo HospitalComment on above:Performed By: #### 72213-2 ####DORYS Morocho ([id number])[facility] ([facility])[address] [place] [address] 35[address]Attkywjtg (BldV) [Moles/Vol]3.5 mmol/LNormal3.5-5.3UnToledo HospitalComment on above:Performed By: #### 66362-0 ####DORYS Morocho ([id number])[facility] ([facility])[address] [place] [address] 715[address]Oyopxh (BldV) [Moles/Vol]140 mmol/XCdowro363-952QqiatpfvygToledo HospitalComment on above:Performed By: #### 64984-7 ####DORYS Morocho ([id number])[facility] ([facility])[address] [place], [place] [address]Anion gap 4 (BldV) [Moles/Vol]22 mmol/L10.0 - 25.0 mmol/[facility] CenterBase excess Calc (BldV) [Moles/Vol]-2.9000 mmol/LLow-2.0 - 3.0 mmol/[facility] Medical CenterCalcium.ionized (BldV) [Moles/Vol] 1.14 mmol/L1.10 - 1.33 mmol/[facility] Medical CenterChloride (BldV) [Moles/Vol]101 mmol/L98 - 107 mmol/[facility] CenterCO2 (BldV) [Partial pressure]34 mm[Hg]LowWyandot Memorial HospitalGlucose [Mass/Vol]170 mg/wQNvxx92 - 99 mg/dLUnGreene Memorial HospitalHCO3 (Bld) [Moles/Vol]21.1 mmol/LLow22.0 - 26.0 mmol/[facility] Hematocrit Est (Bld) [Volume fraction]48 %41.0 - 52.0 %[facility] HospitalHemoglobin (Bld) [Mass/Vol]15.9 g/dL13.5 - 17.5 g/dLUnGreene Memorial HospitalInterpretation and review of laboratory resultsAbnormal [facility] Memorial HospitalLactate (BldV) [Moles/Vol]7.4 mmol/LCritically high0.4 - 2.0 mmol/[facility] Medical CenterOxygen (BldV) [Partial pressure]23 mm[Hg]LowWyandot Memorial HospitalOxygen saturation in Venous blood30 %Low45 - 75 %[facility] Memorial HospitalOxyhemoglobin (BldV) [Mass fraction]29.7 %Low45.0 - 75.0 %[facility] Memorial HospitalpH (BldV)7.4 [pH]7.33 - 7.43 pHUnGreene Memorial HospitalPotassium (BldV) [Moles/Vol]4.6 mmol/L3.5 - 5.3 mmol/[facility] Medical CenterSodium (BldV) [Moles/Vol]139 mmol/L136 - 145 mmol/[facility] CenterOhio State Health SystemAnion gap 4 (BldV) [Moles/Vol]22.0 mmol/LNormal 10.0-25.0[facility] - WestComment on above:Performed By: #### 97844-0 #### DORYS Morocho ([id number]) [facility] ([facility]) [address] [place] [address]Cpwo excess Calc (BldV) [Moles/Vol]-2.9000 mmol/LLow-2.0-3.0 [facility] - WestComment on above:Performed By: #### 98183-3 #### DORYS Morocho ([id number]) [facility] ([facility]) [address] [place] [address] 533[address]Nrswcxb.ionized (BldV) [Moles/Vol]1.14 mmol/LNormal1.10-1.33 [facility] - WestComment on above:Performed By: #### 49233-3 #### DORYS Morocho ([id number]) [facility] ([facility]) [address] [place] [address] 99228Mskrpjtd (BldV) [Moles/Vol]101 mmol/CUrgsyu79-936FkeljydszqLake County Memorial Hospital - WestComment on above:Performed By: #### 68801-3 #### DORYS Morocho ([id number]) [facility] ([facility]) [address] [place] [address] 164[address]IR8 (BldV) [Partial pressure]34 mm GrIno47-17RbtppjjkabToledo HospitalComment on above:Performed By: #### 16938-3 #### DORYS Morocho ([id number]) [facility] ([facility]) [address] [place] [address] 723[address]Powsveg [Mass/Vol]170 mg/eCPzsd97-00HndgmugiwsToledo HospitalComment on above:Performed By: #### 16897-0 #### DORYS Morocho ([id number]) [facility] ([facility]) [address] [place] [address] 639[address]TVV7 (Bld) [Moles/Vol]21.1 mmol/LLow22.0-26.0[facility] - WestComment on above:Performed By: #### 10567-3 #### DORYS Morocho ([id number]) [facility] ([facility]) [address] [place] [address] 424[address]Nsqihibqts Est (Bld) [Volume fraction]48.0 %Hvzdgr25.0-52.0 [facility] - WestComment on above:Performed By: #### 55705-5 #### DORYS Morocho ([id number]) [facility] ([facility]) [address] [place] [address] 12579Afkfrwhjgo (Bld) [Mass/Vol]15.9 g/nDIjpkqr92.5-17.5UnToledo HospitalComment on above:Performed By: #### 17714-9 #### DORYS Morocho ([id number]) [facility] ([facility]) [address] [place] [address] 80699Xohwcdl (BldV) [Moles/Vol]7.4 mmol/LCritically high0.4-2.0 [facility] - WestComment on above:Performed By: #### 30475-7 #### DORYS Morocho ([id number]) [facility] ([facility]) [address] [place] [address] 98977Auvcag (BldV) [Partial pressure]23 mm LeRtl39-69JgnslfcvcjToledo HospitalComment on above:Performed By: #### 74068-7 #### DORYS Morocho ([id number]) [facility] ([facility]) [address] [place] [address] 83[address]Hlnbbv saturation in Venous blood30 %Qpl44-30NrabhegrrhToledo HospitalComment on above:Performed By: #### 62093-7 #### DORYS Morocho ([id number]) [facility] ([facility]) [address] [place] [address] 86515Sdtivkrpngfro (BldV) [Mass fraction]29.7 %Low45.0-75.0 [facility] - WestComment on above:Performed By: #### 41594-1 #### DORYS Morocho ([id number]) [facility] ([facility]) [address] [place] [address] 62352cF (BldV)7.40 [pH]Normal7.33-7.43[facility] - WestComment on above:Performed By: #### 16492-0 #### DORYS Morocho ([id number]) [facility] ([facility]) [address] [place] [address] 59362Uaoeieclm (BldV) [Moles/Vol]4.6 mmol/LNormal3.5-5.3UnToledo HospitalComment on above:Performed By: #### 77713-9 #### DORYS Morocho ([id number]) [facility] ([facility]) [address] [place] [address] 61588Ifxhkx (BldV) [Moles/Vol]139 mmol/KHccgtw478-310CiycvaoxzxToledo HospitalComment on above:Performed By: #### 50756-2 #### DORYS Morocho ([id number]) [facility] ([facility]) [address] [place] [address] 69431Ocgldbyujazt 22-21-6539UntqlzesweWyandot Memorial Hospital Work Phone: Lactateon 45-95-5720Npkbpxf [Moles/Vol]2.4 mmol/LHigh 0.4 - 2.0 mmol/LUnGreene Memorial HospitalLactate [Moles/Vol]2.4 mmol/L High0.4-2.0UnToledo HospitalComment on above:Order Comment: Venipuncture immediately after or during the administration of Metamizole may lead to falsely low results. Testing should be performed immediately prior to Metamizole dosing.Performed By: #### 2524-7 ####DORYS Morocho ([id number])[facility] ([facility])[address] [place] [address] 25467Ngrawne [Moles/Vol]9.3 mmol/LCritically high0.4 - 2.0 mmol/[facility]'s Medical CenterLactate [Moles/Vol]9.3 mmol/LCritically high0.4-2.0UnToledo HospitalComment on above:Order Comment: Venipuncture immediately after or during the administration of Metamizole may lead to falsely low results. Testing should be performed immediately prior to Metamizole dosing.Performed By: #### 2524-7 #### DORYS Morocho ([id number]) [facility] ([facility]) [address] [place] [address] 76440Zyidtoo [Moles/Vol]on 79-09-6102Zhsozvehbegdhz and review of laboratory resultsAbnoLutheran HospitalInterpretation and review of laboratory resultsAbKindred Hospital LimaMagnesiumon 09-16-5631Nmegcxyxh [Mass/Vol]1.82 mg/dLNormal 1.60-2.40UnToledo HospitalComment on above:Order Comment: Next DrawPerformed By: #### 14179-2 ####DORYS Morocho ([id number])[facility] ([facility])[address] [place] [address] 68930Wz Panel Information on 97-00-0770HlidbdcsrcGreene Memorial Hospital Work Phone: uh [facility] Work Phone: [phone] Work Phone: [phone] [facility] Work Phone: [phone] Work Phone: [phone] Study observation (narrative)[facility] Work Phone: [phone] [facility] Work Phone: [phone] Study observation (narrative)[facility] Work Phone: [phone] Memorial HospitalRadiology Study observation (narrative)[facility] Work Phone: [phone] Study observation (narrative)[facility] Work Phone: U[facility] MMODALUnGreene Memorial Hospital Work Phone: UnGreene Memorial Hospital Work Phone: Radiology Study observation (narrative)[facility] Work Phone: No Panel InformationOrdered By: Uday Dash on 11-03-0873UoxdmkcodlGreene Memorial Hospital Work Phone: PT Coag (PPP) [Time]on 56-79-6729JJX Coag (PPP) [Relative time]1.1 {INR}0.9 - 1.1UnGreene Memorial HospitalInterpretation and review of laboratory resultsNormalUniversHarper County Community Hospital – BuffaloINR Coag (PPP) [Relative time]1.3Xuypeu7.9-1.1 [facility] - WestComment on above:Performed By: #### 5902-2 #### DORYS Morocho ([id number]) [facility] ([facility]) [id number] [place] [address] 99669Hicydmv-OANbb 08-50-0601BS Coag (PPP) [Time]12.8 [facility] SpringfieldRenal function 2000 panelon 16-35-0651Cqhffkq BCP dye [Mass/Vol]4.0 g/dLNormal3.4-5.0UnToledo Hospital Comment on above:Performed By: #### 74788-4 ####DORYS Morocho ([id number])[facility] ([facility])[id number] [place] [address] 37133Gzxrl gap [Moles/Vol]16 mmol/GPtpcud05-38MditydxxnwToledo Hospital Comment on above:Performed By: #### 24095-1 ####DORYS Morocho ([id number])[facility] ([facility])[address] [place] [address] 44759Zaivrqp [Mass/Vol] 8.5 mg/dLLow8.6-10.6UnToledo HospitalComment on above:Performed By: #### 34526-9 ####DORYS RIOS L ([id number])[facility] ([facility])[address] [place], [place] [address]Gszpsisi [Moles/Vol]104 mmol/LNormal 98-107UnToledo HospitalComment on above:Performed By: #### 80390-6 ####DORYS DIMASMOTZER L ([id number])[facility] ([facility])[address] [place], [place] [address]YD4 [Moles/Vol]27 mmol/MTpfvqc73-47FewniosdwuToledo HospitalComment on above:Performed By: #### 15730-1 ####DORYS RIOS L ([id number])[facility] ([facility])[address] [place], [place] [address]Oftrfnowxk [Mass/Vol]0.79 mg/dLNormal0.50-1.30[facility] - WestComment on above:Performed By: #### 49117-1 ####DORYS RIOS L ([id number])[facility] ([facility])[address] [place], [place] [address]RQN/1.73 sq M.predicted MDRD (S/P/Bld) [Vol rate/Area]mL/min/{1.73_m2} Normal>60UnToledo HospitalComment on above:Result Comment: Calculations of estimated GFR are performed using the 2020 CKD-EPI Study Refit equation without the race variable for the IDMS-Traceable creatinine methods. https://jasn.asnjournals.org/content/early//ASN.3874789306Nyijoavsq By: #### 99165-5 ####DORYS HAINESTZER L ([id number])[facility] ([facility])[address] [place], [place] [address]Pyyvoxo [Mass/Vol]98 mg/nHNgksrb67-41WxhvrcikumLake County Memorial Hospital - WestComment on above:Performed By: #### 81301-6 ####DORYS RIOS L ([id number])[facility] ([facility])[address] [place], [place] [address]Krmtsfnqr [Mass/Vol]5.8 mg/dLHigh2.5-4.9[facility] - WestComment on above:Result Comment: The performance characteristics of phosphorus testing in heparinized plasma have been validated by the individual laboratory site where testing is performed. Testing on heparinized plasma is not approved by the FDA; however, such approval is not necessary. Performed By: #### 63661-4 ####DORYS Morocho ([id number])[facility] ([facility])[address] [place] [address] 769[address]Lcjrcycsm [Moles/Vol]4.0 mmol/LNormal3.5-5.3 [facility] - WestComment on above:Performed By: #### 90898-3 ####DORYS Morocho ([id number])[facility] ([facility])[address] [place] [address] 45513Sdbtap [Moles/Vol]143 mmol/LVhvpcy947-226WbiuzgzabqToledo HospitalComment on above:Performed By: #### 32715-8 ####DORYS Morocho ([id number])[facility] ([facility])[address] [place] [address] 69510Gljm nitrogen [Mass/Vol]10 mg/dLNormal6-23UnToledo HospitalComment on above:Performed By: #### 41102-9 ####DORYS Morocho ([id number])[facility] ([facility])[address] [place] [address] 48438ST ABDOMEN 1 VIEWon 58-16-9198JL ABDOMEN 1 VIEWInterpreted By: Uday Dash, STUDY: XR FEMUR RIGHT 2+ VIEWS; XR CHEST 1 VIEW; XR ABDOMEN 1 VIEW INDICATION: Signs/Symptoms:femur fracture; Signs/Symptoms:Intubation. COMPARISON: None ACCESSION NUMBER(S): [id number]; [id number] ORDERING CLINICIAN: JOSEFINA TORRES FINDINGS: Comminuted and displaced subtrochanteric proximal diaphyseal right femoral fracture with the adjacent soft tissue swelling. Alignment of the right hip normal. Single-view of the chest demonstrates intubation with the endotracheal tube an approximate 2 cm proximal to the wesley with a nasogastric tube in the stomach. No consolidation, effusion, edema, or pneumothorax. Two views of the abdomen demonstrate contrast in the bladder in the renal collecting systems. There is no other acute abnormality seen. IMPRESSION: Comminuted right femoral fracture. No evidence of acute intrathoracic or intra-abdominal abnormality. Signed by: Uday Dash 07/28/2024 5:44 PM Dictation workstation: [id number]ty Hospitals Conneaut Medical CenterXR CHEST 1 VIEWon 77-20-7503VO CHEST 1 VIEWInterpreted By: Uday Dash, STUDY: XR FEMUR RIGHT 2+ VIEWS; XR CHEST 1 VIEW; XR ABDOMEN 1 VIEW INDICATION: Signs/Symptoms:femur fracture; Signs/Symptoms:Intubation. COMPARISON: None ACCESSION NUMBER(S): [id number]; [id number] ORDERING CLINICIAN: JOSEFINA TORRES FINDINGS: Comminuted and displaced subtrochanteric proximal diaphyseal right femoral fracture with the adjacent soft tissue swelling. Alignment of the right hip normal. Single-view of the chest demonstrates intubation with the endotracheal tube an approximate 2 cm proximal to the wesley with a nasogastric tube in the stomach. No consolidation, effusion, edema, or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 [id number] [facility] ID: [id number] Author: RT Merry(R) Service: Radiology Author Type: Technologist Type: Allied Health Filed: 10/17/2021 7:39 PM Note Text: Radiology Service Progress Note DATE OF SERVICE: October 17, 2021 TIME: 7:39 PM PATIENT IDENTITY VERIFICATION COMPLETED USING TWO (2) STANDARD IDENTIFIERS: Name and Date of confirmed by patient verbally. FALL SCREENING: Has the patient had 2 falls in the last year or 1 fall with injury or currently using an Ambulatory Assistive Device (Walker, Cane, Wheelchair, Crutches, etc.)? Emergency Room Patient: Screened in ED PATIENT GENDER DATA: Male PATIENT RELEVANT IMPLANT DATA REVIEWED: Not Applicable ALLERGIES: Reviewed and unchanged CONTRAST ALLERGY: NO. EXAM: CT -CONTRAST INDUCED NEPHROPATHY RISK FACTORS: Not applicable CREATININE: Creatinine Date Value Ref Range Status 05/21/2021 1.05 0.73 - 1.22 mg/dL Final eGFR-All Other Races Date Value Ref Range Status 05/21/2021 >60 >60 . Final Comment: eGFR (Estimated GFR) Units of measure: mL/min/1.73 meters squared eGFR is derived from the reexpressed MDRD Study equation using the following parameters: serum creatinine, age, gender and race. The creatinine assay has been calibrated to be traceable to IDMS. An eGFR <60 mL/min/1.73m2 for >3 months is consistent with chronic kidney disease. Refer to KDOQI guidelines for clinical interpretation. In patients with unstable renal function, e.g. those with acute kidney injury, the eGFR may not accurately reflect actual GFR. eGFR- Date Value Ref Range Status 05/21/2021 >60 >60 Final P.O.C.T. RESULTS: N/A October 17, 2021 TREATMENT: N/A PERIPHERAL IV DATA: Inpatient - refer to [facility] documentation RADIOLOGY DEPARTMENT: CT; Exam(s) Completed: Brain , Chest Abdomen Pelvis, CTA Brain , CTA Neck , Face/Mandible and Spine SIGNATURE: RT Merry(R) PATIENT NAME: Pineda Hicks DATE: October 17, 2021 TIME: 7:39 PMNormalMelrosewakefield HospitalAPTBanner Ironwood Medical Center [id number] Coag (Bld) [Time]25.7 vCyxxrj33.0-32.4Hmercy medical center HospitalComment on above:Result Comment: Unfractionated Heparin Therapeutic Ranges: Standard Heparin Nomogram: 53 to 78 seconds (anti-Xa level of 0.3 to 0.7 U/ml) Low Dose/ACS Nomogram: 49 to 67 seconds (anti-Xa level of 0.2 to 0.5 U/ml) Stroke Treatment Nomogram: 49 to 67 seconds (anti-Xa level of 0.2 to 0.5 U/ml) Note: The APTT therapeutic range has been determined for the current lot of laboratory APTT reagentin use throughout the [facility].CBC on [id number] nRBC<0.01Normal<0.01Melrosewakefield HospitalErythrocyte distribution width (RBC) [Ratio]12.4 %Bgrowd58.5-15.0[facility] Hematocrit (Bld) [Volume fraction]38.3 %Low39.0-51.0[facility]wakefield HospitalHemoglobin (Bld) [Mass/Vol]13.2 g/gXDoegao34.0-17.0[facility] CenterH32.1 pGNormal 26.0-34.0[facility] CenterHC (RBC) [Mass/Vol]34.5 g/sKSnscwc85.5-36.0 [facility] HospitalMCV (RBC) [Entitic vol]93.2 hEKbiayo87.0-100.0Pound HospitalPlatelet mean volume (Bld) [Entitic vol]10.7 fLNormal9.0-12.7Hmercy medical center HospitalPlatelets (Bld) [#/Vol]276 10*3/vWJcrpgn412-242Negyuezfw HospitalRBC (Bld) [#/Vol]4.11 10*6/uLLow4.20-6.00Melrosewakefield HospitalWBC (Bld) [#/Vol]12.93 10*3/uLHigh3.70-11.00[facility] HospitalCT ABD/PEL W IVCONon [id number] ABD/PEL W IVCON* * *Final Report* * * DATE OF EXAM: Oct 17 2021 7:59PM [facility] 0530 - CT ABD/PEL W IVCON / PROCEDURE REASON: Abdomen-pelvis trauma, moderate, blunt * * * * Physician Interpretation * * * * RESULT: EXAMINATION: CT ABDOMEN AND PELVIS WITH IV CONTRAST, CT LUMBAR SPINE CLINICAL HISTORY: Abdomen-pelvis trauma, moderate, blunt (accession [id number]), L/S-spine fx, traumatic (accession [id number]) TECHNIQUE: CT of the abdomen and pelvis was performed using standard technique, scanning from just above the dome of the diaphragm to the symphysis pubis. Lumbar Spine reconstructions performed MQ: CTAP_3 Contrast: IV: 125 ml of Omnipaque 350 : ml of CT Radiation dose: Integrated Dose-length product (DLP) for this visit = 3121 (accession [id number]), RECON (accession [id number]) mGy*cm. CT Dose Reduction Employed: Automated exposure control(AEC) and iterative recon COMPARISON: None. RESULT: CT abdomen and pelvis Liver: No mass. Steatosis Biliary: No bile duct dilation. Gallbladder is unremarkable. Spleen: No mass. No splenomegaly. Pancreas: No mass or duct dilation. Adrenals: No mass. Kidneys: No mass, calculus or hydronephrosis. GI tract: Moderate colonic stool burden. Lymph nodes: No abdominal or pelvic lymphadenopathy. Mesentery/Peritoneum: No ascites or mass. Retroperitoneum: No mass. Vasculature: No significant abnormality Pelvis: No mass, ascites or fluid collection. Distended urinary bladder. Bones/Soft Tissues: No acute findings Lower thorax: Dictated separately. Coal Grader (topogram) images: No additional findings. CT lumbar spine No acute fracture or dislocation. Normal alignment of the lumbar spine. Normal disc spaces. Well aligned facet joints. No significant soft tissue abnormality is identified. IMPRESSION: CT abdomen and pelvis No acute visceral injury. Distended urinary bladder. CT lumbar spine No acute fracture or dislocation. Transcribed Using Voice Recognition Transcribe Date/Time: Oct 17 2021 8:08P Dictated by: KELLIE GRAHAM MD This examination was interpreted and the report reviewed and electronically signed by: KELLIE GRAHAM MD on Oct 17 2021 8:38PM EST [id number] Hospital C-SPINE W RECON DATA -NBon [id number] C-SPINE W RECON DATA -NB* * *Final Report* * * DATE OF EXAM: Oct 17 2021 7:59PM [facility] 0478 - CT C-SPINE W RECON DATA -NB / PROCEDURE REASON: C-spine fx, traumatic * * * * Physician Interpretation * * * * RESULT: EXAMINATION: CTA HEAD WO/W IVCON, CTA NECK W IVCON, CT C-SPINE W RECON DATA -NB CLINICAL HISTORY: Arterial and Venous Concerns, traumatic injury, Dissection. Head trauma, headache, C-spine fx, traumatic. TECHNIQUE: Routine CT of the brain without IV contrast. Next, spiral high resolution axial images were obtained through the head, neck and superior mediastinum following bolus administration of intravenous contrast for CT angiography. 3D maximum intensity projection images were created, reviewed and archived . Reconstructed axial, sagittal, and coronal images of the cervical spine were also performed. MQ: CTAHN_4 Contrast: 125 mL Omnipaque 350 IV Dose-Length Product (DLP): 3121 mGy*cm. CT Dose Reduction Employed: Automated exposure control(AEC) and iterative recon COMPARISON: None. RESULT: BRAIN: Acute change: No evidence of an acute infarct or other acute parenchymal process. ASPECT Score = 10 Hemorrhage: No evidence of acute intracranial hemorrhage. ECASS hemorrhagic transformation score = Not applicable Mass Lesion / Mass Effect: There is no evidence of an intracranial mass or extraaxial fluid collection. No significant mass effect. Chronic change: None apparent. Parenchyma: There is no significant volume loss. The brain parenchyma is otherwise within normal limits for age. Ventricles: The ventricles are within normal limits of size and configuration for age. Other: Mild opacification along the frontal sinus drainage pathways bilaterally. Mild mucosal thickening in the bilateral maxillary sinuses. The skull base and imaged soft tissues are unremarkable. CERVICAL/NECK: Counting reference: Craniocervical junction. Alignment: Straightening of the cervical lordosis with preserved vertebral body alignment. Craniocervical junction: Craniocervical junction is normal. Osseous structures/fracture: No evidence of a lytic or blastic process in the visualized spine. No evidence of acute or chronic fracture. Soft tissues: The soft tissue planes are maintained throughout. No evidence of a soft tissue mass in the neck or superior mediastinum. On the prominent bilateral upper cervical lymph nodes, but no cervical lymphadenopathy by size criteria and no lymph nodes without suspicious morphologic features. Lung apices: Posterior dependent atelectatic changes without focal consolidation or mass. Canal and foramina: C2-C3: Mild anteroposterior developmental canal narrowing. Patent neural foramina. C3-C4: Mild developmental canal narrowing. Uncovertebral hypertrophy continues to mild left foraminal narrowing. Patent right neural foramen. C4-C5: Mild developmental canal narrowing. Uncovertebral hypertrophy contributes to mild left bilateral foraminal narrowing. C5-C6: Developmental canal narrowing with small superimposed disc osteophyte complex with no more than mild overall spinal canal narrowing. Uncovertebral hypertrophy contributes to moderate right and mild left foraminal narrowing. C6-C7: Canal and foramina are patent. C7-T1: Canal and foramina are patent. CT ARTERIOGRAM: Extracranial Circulation: Aortic Arch: There is a normal branching pattern from the aortic arch. There is no significant stenosis in the innominate artery or imaged proximal subclavian arteries. Cervical Carotid Arteries: Right Common: No significant stenosis. Right Internal Carotid: No significant plaque formation. Right Internal Carotid Stenosis (% by NASCET Criteria): 0 Left Common: No significant stenosis. Left Internal Carotid: No significant plaque formation. Left Internal Carotid Stenosis (% by NASCET Criteria): 0 Cervical Vertebral Arteries: Patency: Bilateral Dominance: Right Intracranial Circulation: The intracranial arterial assessment is degraded by substantial venous phase contrast enhancement. Anterior Circulation: The intracranial ICAs are patent. Patent ACAs with codominant A1 segments and patent anterior communicating artery. Patent appearance of the MCAs bilaterally. Posterior Circulation: Patent intracranial vertebral arteries, dominant on the right. Patent proximal left PICA/AICA complex, patent right proximal posterior inferior cerebellar artery and patent right anterior inferior cerebellar artery. Patent appearance of the basilar artery. Patent proximal superior cerebellar arteries which appear duplicated on the right. Unremarkable appearance of the posterior cerebral arteries. No evidence of high grade stenosis, occlusion, or aneurysm in the visualized vessels. Coal Grader (topogram) images: Noncontributory IMPRESSION: No acute intracranial abnormality. No apparent cervical or intracranial arterial occlusion, aneurysm, or high-grade stenos (more content not included)...NormalHillcrest HospitalCT CHEST W IVCONon [id number] CHEST W IVCON* * *Final Report* * * DATE OF EXAM: Oct 17 2021 7:59PM [facility] 0539 - CT CHEST W IVCON / PROCEDURE REASON: Chest trauma, blunt * * * * Physician Interpretation * * * * RESULT: EXAMINATION: CHEST CT WITH CONTRAST CLINICAL HISTORY: Chest trauma, blunt Technique: Spiral CT acquisition of the chest from the thoracic inlet to the upper abdomen following IV contrast. MQ: CTCW_6 Contrast: 125 mL Omnipaque [address] Radiation dose: Integrated Dose-length product (DLP) for this visit = 3121 mGy*cm CT Dose Reduction Employed: Automated exposure control(AEC) and iterative recon Comparison: None RESULT: Limitations: None. Lines, tubes, and devices: None. Lung parenchyma and airways: There is no focal lobar consolidation, pleural effusion, pulmonary edema or pneumothorax. Central airways are patent. Bibasilar subsegmental atelectasis. Punctate subpleural right upper lobe calcified granuloma. No suspicious pulmonary parenchymal nodule. Pleural space: No pleural effusion. No pleural thickening. Lower neck, lymph nodes, and mediastinum: The imaged thyroid gland is normal. No lymphadenopathy in the supraclavicular, axillary, mediastinal, or hilar regions. Heart, pericardium, and thoracic vessels: The thoracic aorta and main pulmonary artery are normal in caliber. The cardiac chambers are normal in size. No coronary artery atherosclerotic calcifications are noted, although the study is not optimized for coronary assessment. No pericardial effusion or thickening. Bones and soft tissues: No destructive bone lesion. Chest wall is unremarkable. No evidence of displaced rib fracture or sternal fracture. No evidence of fracture the visualized portions of the right or left clavicle. Upper abdomen: No abnormality in the imaged upper abdomen. Coal Grader (topogram) images: No additional findings. IMPRESSION: No acute findings on the contrast-enhanced CT of the thorax. Transcribed Using Voice Recognition Transcribe Date/Time: Oct 17 2021 8:17P Dictated by: NELSON OJEDA MD This examination was interpreted and the report reviewed and electronically signed by: NELSON OJEDA MD on Oct 17 2021 8:20PM EST [id number] HospitalIA FACIAL BONE/LILIAM WO IVCONon [id number] FACIAL BONE/LILIAM WO IVCON* * *Final Report* * * DATE OF EXAM: Oct 17 2021 7:59PM [facility] [facility] 0507 - CT FACIAL BONE/LILIAM WO IVCON / PROCEDURE REASON: Facial trauma, fx suspected * * * * Physician Interpretation * * * * RESULT: EXAMINATION: CT FACIAL BONE/LILIAM WO IVCON CLINICAL HISTORY: Trauma. Facial fracture suspected Technique: Spiral high resolution axial unenhanced images were obtained through the facial bones with sagittal and coronal planar reconstructions. MQ: CTMFWO_1 CT Radiation dose: Integrated Dose-Length Product (DLP) for this visit = 3121 mGy*cm. CT Dose Reduction Employed: Automated exposure control(AEC) and iterative recon COMPARISON: None. RESULT: Coal Grader (topogram) images: No additional findings. Soft Tissues: No significant superficial soft tissue swelling. Facial bones: No evidence of an acute fracture in the visualized facial bones. Orbits: No evidence of an acute fracture. The globes are intact. The soft tissue planes of the orbits are maintained. Paranasal Sinuses: Mild mucosal thickening is present involving maxillary sinuses bilaterally and scattered ethmoid air cells. Rightward nasal septal deviation is present. Foreign Bodies: No evidence of radiopaque foreign bodies. Other: No evidence of a remote fracture. No lytic or blastic process seen in the facial bones. IMPRESSION: No evidence of acute facial bone fracture. Mild mucosal thickening is present involving maxillary sinuses bilaterally and scattered ethmoid air cells. Rightward nasal septal deviation is present. Transcribed Using Voice Recognition Transcribe Date/Time: Oct 17 2021 8:22P Dictated by: NELSON OJEDA MD This examination was interpreted and the report reviewed and electronically signed by: NELSON OJEDA MD on Oct 17 2021 8:26PM EST [id number] Hospital LUMBAR SPINE W RECON DATA -NBon [id number] LUMBAR SPINE W RECON DATA -NB* * *Final Report* * * DATE OF EXAM: Oct 17 2021 7:59PM [facility] 0481 - CT LUMBAR SPINE W RECON DATA -NB / PROCEDURE REASON: L/S-spine fx, traumatic * * * * Physician Interpretation * * * * RESULT: EXAMINATION: CT ABDOMEN AND PELVIS WITH IV CONTRAST, CT LUMBAR SPINE CLINICAL HISTORY: Abdomen-pelvis trauma, moderate, blunt (accession [id number]), L/S-spine fx, traumatic (accession [id number]) TECHNIQUE: CT of the abdomen and pelvis was performed using standard technique, scanning from just above the dome of the diaphragm to the symphysis pubis. Lumbar Spine reconstructions performed MQ: CTAP_3 Contrast: IV: 125 ml of Omnipaque 350 : ml of CT Radiation dose: Integrated Dose-length product (DLP) for this visit = 3121 (accession [id number]), RECON (accession [id number]) mGy*cm. CT Dose Reduction Employed: Automated exposure control(AEC) and iterative recon COMPARISON: None. RESULT: CT abdomen and pelvis Liver: No mass. Steatosis Biliary: No bile duct dilation. Gallbladder is unremarkable. Spleen: No mass. No splenomegaly. Pancreas: No mass or duct dilation. Adrenals: No mass. Kidneys: No mass, calculus or hydronephrosis. GI tract: Moderate colonic stool burden. Lymph nodes: No abdominal or pelvic lymphadenopathy. Mesentery/Peritoneum: No ascites or mass. Retroperitoneum: No mass. Vasculature: No significant abnormality Pelvis: No mass, ascites or fluid collection. Distended urinary bladder. Bones/Soft Tissues: No acute findings Lower thorax: Dictated separately. Coal Grader (topogram) images: No additional findings. CT lumbar spine No acute fracture or dislocation. Normal alignment of the lumbar spine. Normal disc spaces. Well aligned facet joints. No significant soft tissue abnormality is identified. IMPRESSION: CT abdomen and pelvis No acute visceral injury. Distended urinary bladder. CT lumbar spine No acute fracture or dislocation. Transcribed Using Voice Recognition Transcribe Date/Time: Oct 17 2021 8:08P Dictated by: KELLIE GRAHAM MD This examination was interpreted and the report reviewed and electronically signed by: KELLIE GRAHAM MD on Oct 17 2021 8:38PM EST [id number] county [facility] T-SPINE W RECON DATA -NBon [id number] T-SPINE W RECON DATA -NB* * *Final Report* * * DATE OF EXAM: Oct 17 2021 7:59PM [facility] 0485 - CT T-SPINE W RECON DATA -NB / PROCEDURE REASON: T-spine fx, traumatic * * * * Physician Interpretation * * * * RESULT: EXAMINATION: CT T-SPINE W RECON DATA -NB CLINICAL HISTORY: T-spine fx, traumatic TECHNIQUE: Spiral, high resolution axial unenhanced images were obtained from the cervicothoracic junction to the sacrum with sagittal and coronal planar reconstructions. MQ: CTTLWO_3 CT Radiation dose: Integrated Dose-Length Product (DLP) for this visit = RECON mGy*cm. CT Dose Reduction Employed: Automated exposure control(AEC) and iterative recon COMPARISON: None. RESULT: THORACIC: Counting reference: Lumbosacral junction. For the purposes of this report, L4-5 is considered the level of the iliac crest and assume there are 5 lumbar-type vertebrae. Anatomic variant: None. Coal Grader (topogram) images: No additional findings. Alignment: Alignment is anatomic. No acute traumatic subluxation of the thoracic spine. Bone marrow / fracture: No evidence of a lytic or blastic process in the visualized spine. No evidence of acute or chronic fracture. Thoracic soft tissues: The paraspinal soft tissues planes are maintained. Canal and foramina: The bony thoracic canal and foramina are patent. LUMBAR: Counting reference: Lumbosacral junction. For the purposes of this report, Coal Grader (topogram) images: No additional findings. Alignment: Alignment is anatomic. No acute traumatic subluxation of the lumbar spine. Bone marrow / fracture: No evidence of a lytic or blastic process in the visualized spine. No evidence of acute or chronic fracture. Paraspinal soft tissues: The paraspinal soft tissues planes are maintained. T12-L1: Canal and foramina are patent. L1-L2: Canal and foramina are patent. L2-L3: Canal and foramina are patent L3-L4: Canal and foramina are patent L4-L5: Canal and foramina are patent L5-S1: Canal and foramina are patent Sacrum and iliac wings: The visualized sacrum and iliac wings are within normal limits. The presacral soft tissues are normal in appearance. IMPRESSION: No acute fracture or acute traumatic subluxation of the thoracic or lumbar spine. Transcribed Using Voice Recognition Transcribe Date/Time: Oct 17 2021 8:12P Dictated by: NELSON OJEDA MD This examination was interpreted and the report reviewed and electronically signed by: NELSON OJEDA MD on Oct 17 2021 8:16PM EST [id number]/W IVCONon 10-17-2021 CTA HEAD WO/W IVCON* * *Final Report* * * DATE OF EXAM: Oct 17 2021 7:59PM [facility] 0023 - CTA HEAD WO/W IVCON / PROCEDURE REASON: Head trauma, headache * * * * Physician Interpretation * * * * RESULT: EXAMINATION: CTA HEAD WO/W IVCON, CTA NECK W IVCON, CT C-SPINE W RECON DATA -NB CLINICAL HISTORY: Arterial and Venous Concerns, traumatic injury, Dissection. Head trauma, headache, C-spine fx, traumatic. TECHNIQUE: Routine CT of the brain without IV contrast. Next, spiral high resolution axial images were obtained through the head, neck and superior mediastinum following bolus administration of intravenous contrast for CT angiography. 3D maximum intensity projection images were created, reviewed and archived . Reconstructed axial, sagittal, and coronal images of the cervical spine were also performed. MQ: CTAHN_4 Contrast: 125 mL Omnipaque 350 IV Dose-Length Product (DLP): 3121 mGy*cm. CT Dose Reduction Employed: Automated exposure control(AEC) and iterative recon COMPARISON: None. RESULT: BRAIN: Acute change: No evidence of an acute infarct or other acute parenchymal process. ASPECT Score = 10 Hemorrhage: No evidence of acute intracranial hemorrhage. ECASS hemorrhagic transformation score = Not applicable Mass Lesion / Mass Effect: There is no evidence of an intracranial mass or extraaxial fluid collection. No significant mass effect. Chronic change: None apparent. Parenchyma: There is no significant volume loss. The brain parenchyma is otherwise within normal limits for age. Ventricles: The ventricles are within normal limits of size and configuration for age. Other: Mild opacification along the frontal sinus drainage pathways bilaterally. Mild mucosal thickening in the bilateral maxillary sinuses. The skull base and imaged soft tissues are unremarkable. CERVICAL/NECK: Counting reference: Craniocervical junction. Alignment: Straightening of the cervical lordosis with preserved vertebral body alignment. Craniocervical junction: Craniocervical junction is normal. Osseous structures/fracture: No evidence of a lytic or blastic process in the visualized spine. No evidence of acute or chronic fracture. Soft tissues: The soft tissue planes are maintained throughout. No evidence of a soft tissue mass in the neck or superior mediastinum. On the prominent bilateral upper cervical lymph nodes, but no cervical lymphadenopathy by size criteria and no lymph nodes without suspicious morphologic features. Lung apices: Posterior dependent atelectatic changes without focal consolidation or mass. Canal and foramina: C2-C3: Mild anteroposterior developmental canal narrowing. Patent neural foramina. C3-C4: Mild developmental canal narrowing. Uncovertebral hypertrophy continues to mild left foraminal narrowing. Patent right neural foramen. C4-C5: Mild developmental canal narrowing. Uncovertebral hypertrophy contributes to mild left bilateral foraminal narrowing. C5-C6: Developmental canal narrowing with small superimposed disc osteophyte complex with no more than mild overall spinal canal narrowing. Uncovertebral hypertrophy contributes to moderate right and mild left foraminal narrowing. C6-C7: Canal and foramina are patent. C7-T1: Canal and foramina are patent. CT ARTERIOGRAM: Extracranial Circulation: Aortic Arch: There is a normal branching pattern from the aortic arch. There is no significant stenosis in the innominate artery or imaged proximal subclavian arteries. Cervical Carotid Arteries: Right Common: No significant stenosis. Right Internal Carotid: No significant plaque formation. Right Internal Carotid Stenosis (% by NASCET Criteria): 0 Left Common: No significant stenosis. Left Internal Carotid: No significant plaque formation. Left Internal Carotid Stenosis (% by NASCET Criteria): 0 Cervical Vertebral Arteries: Patency: Bilateral Dominance: Right Intracranial Circulation: The intracranial arterial assessment is degraded by substantial venous phase contrast enhancement. Anterior Circulation: The intracranial ICAs are patent. Patent ACAs with codominant A1 segments and patent anterior communicating artery. Patent appearance of the MCAs bilaterally. Posterior Circulation: Patent intracranial vertebral arteries, dominant on the right. Patent proximal left PICA/AICA complex, patent right proximal posterior inferior cerebellar artery and patent right anterior inferior cerebellar artery. Patent appearance of the basilar artery. Patent proximal superior cerebellar arteries which appear duplicated on the right. Unremarkable appearance of the posterior cerebral arteries. No evidence of high grade stenosis, occlusion, or aneurysm in the visualized vessels. Coal Grader (topogram) images: Noncontributory IMPRESSION: No acute intracranial abnormality. No apparent cervical or intracranial arterial occlusion, aneurysm, or high-grade stenosis. No (more content not included)...NormalHillcrest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 ID: [id number] Author: Shantell Garcia RN Service: ? Author Type: Registered Nurse Type: ED Notes Filed: 05/21/2021 10:05 PM Note Text: Returned from CT.[facility] Cancer CenterED NOTEHNO ID: [id number] Author: Charlene Rehman RN Service: ? Author Type: Registered Nurse Type: ED Notes Filed: 05/21/2021 10:01 PM Note Text: Returned from CT in stable conditionNoRegional Medical CenterED NOTEHNO ID: [id number] Author: Erasmo Vidal RN Service: Nursing Author Type: Registered Nurse Type: ED Notes Filed: 05/21/2021 11:29 PM Note Text: Assumed care and received verbal report from previous RN. Patient is resting in bed comfortably and in no acute distress. Call light within reach, bed in lowest position, side rails up x2, safety maintained. I have reviewed and agree with previous RN's assessment.NormalScientologist HospitalBasic Metabolic Panlon 60-37-0832Gpqdu gap [Moles/Vol]9 mmol/LNormal9-18Lutheran HospitalComment on above:Performed By: #### ALEXIA RILEYX, BMP ####[place] [id number] [Mass/Vol] 9.4 mg/dLNormal8.5-10.2[facility] HospitalComment on above:Performed By: #### ROSEMARY MONOLX, BMP ####Scientologist [place] [address]Chloride [Moles/Vol]96 mmol/OChb62-271Jmslouin HospitalComment on above:Performed By: #### ALEXIA RILEYX, BMP ####[place] [phone] [Moles/Vol]29 mmol/ERpvcei88-43Krekwazn HospitalComment on above:Performed By: #### ALEXIA RILEYX, BMP ####[place] [phone] [Mass/Vol]1.05 mg/dLNormal0.73-1.22[facility]utheran HospitalComment on above:Performed By: #### ALEXIA RILEYX, BMP ####[place] [phone]-African Amer.>60Normal>60Lutheran HospitalComment on above:Performed By: #### ROSEMARY MONOLX, BMP ####Scientologist [place] [id number]-All Other Races>60Normal>60[facility]utheran HospitalComment on above:Result Comment: eGFR (Estimated GFR) Units of measure: mL/min/1.73 meters squared eGFR is derived from the reexpressed MDRD Study equation using the following parameters: serum creatinine, age, gender and race. The creatinine assay has been calibrated to be traceable to IDMS. An eGFR <60 mL/min/1.73m2 for >3 months is consistent with chronic kidney disease. Refer to KDOQI guidelines for clinical interpretation. In patients with unstable renal function, e.g. those with acute kidney injury, the eGFR may not accurately reflect actual GFR.Performed By: #### ALEXIA RILEYX, BMP ####[place] [phone] Glucose [Mass/Vol]114 mg/qACgvp69-07Ronnihsx HospitalComment on above:Performed By: #### ALEXIA RILEYX, BMP ####[place] [phone] [Moles/Vol]4.6 mmol/LNormal3.7-5.1[facility] HospitalComment on above:Performed By: #### ALEXIA RILEYX, BMP ####[place] [phone] [Moles/Vol] 134 mmol/JCpd174-162Bwvabfxh HospitalComment on above:Performed By: #### ALEXIA RILEYX, BMP ####[place] [address]Urea nitrogen [Mass/Vol]13 mg/dLNormal9-24[facility] HospitalComment on above:Performed By: #### INA RILEY, BMP ####[place] [phone] 63-53-5154Edtyltay nRBC<0.01Normal <0.01[facility] HospitalComment on above:Performed By: #### ALEXIA RILEYX, BMP ####[place] [phone] Erythrocyte distribution width (RBC) [Ratio]12.1 %Sdvdus06.5-15.0[facility] HospitalComment on above:Performed By: #### ALEXIA RILEYX, BMP ####[place] [phone] (Bld) [Volume fraction]45.8 %Kuehzr33.0-51.0[facility] HospitalComment on above: Performed By: #### ROSEMARY MONOLX, BMP ####[address] [phone] (Bld) [Mass/Vol]15.1 g/dLNormal 13.0-17.0Luthonorhealth sonor[facility] crossing medical centeran HospitalComment on above:Performed By: #### CBC, MONOLX, BMP ####[place] [phone] vNEavjjh11.0-34.0[facility]onorhealth sonor[facility] crossing medical centeran HospitalComment on above:Performed By: #### CBC, MONOLX, BMP ####[place] [address]MCHC (RBC) [Mass/Vol]33.0 g/dBLdhafl80.5-36.0[facility]onorhealth son[facility] crossing [facility] centeran HospitalComment on above:Performed By: #### CBC, MONOLX, BMP ####[place] [phone] (RBC) [Entitic vol]93.9 fLNormal 80.0-100.0[facility] HospitalComment on above:Performed By: #### CBC, MONOLX, BMP ####[place] [phone] Platelet mean volume (Bld) [Entitic vol]9.7 fLNormal9.0-12.7[facility] Hospital Comment on above:Performed By: #### CBC, MONOLX, BMP ####[place] [phone] (Bld) [#/Vol]270 10*3/jOAqocgm324-904Zvdgctxq HospitalComment on above:Performed By: #### CBC, MONOLX, BMP ####[place] [address]RBC (Bld) [#/Vol]4.88 10*6/uLNormal4.20-6.00[facility] HospitalComment on above:Performed By: #### CBC, MONOLX, BMP ####[place] [phone] (Bld) [#/Vol]16.44 10*3/uLHigh 3.70-11.00[facility] HospitalComment on above:Performed By: #### CBC, MONOLX, BMP ####Scientologist V[address]pid[address] [phone] NECK SOFT TISSUE W IVCONon [id number] NECK SOFT TISSUE W IVCON* * *Final Report* * * DATE OF EXAM: May 21 2021 9:55PM ALAN 0013 - CT NECK SOFT TISSUE W IVCON / PROCEDURE REASON: Mass, lump or swelling, neck * * * * Physician Interpretation * * * * EXAMINATION: CT NECK SOFT TISSUE W IVCON HISTORY: Mass, lump or swelling, neck. Additional history of asymmetric to the RIGHT sore throat, and concern for peritonsillar abscess. Technique: CT of the soft tissues of the neck with IV contrast. A series of contiguous helical scans were performed from the skull base to the aortic arch. M: CTNW_1 Contrast: 100 mL Omnipaque [address] Dose-Length Product (DLP): 381 mGy*cm CT Dose Reduction Employed: Automated exposure control(AEC) and iterative recon; COMPARISON: None available. RESULT: Suprahyoid Neck: Asymmetric right-sided palatine tonsillar enlargement, and mild prominence on the LEFT. On the RIGHT, there is a low/fluid-density area measuring 2.8 cm TR by 2 cm AP (reference 2:50) by 1.8 cm CC (reference 602:28), with mild peripheral postcontrast enhancement, compatible with an abscess. Associated moderate oropharyngeal airway narrowing. Mild surrounding soft tissue hypodensity/edema/inflammation, and with extension into the ipsilateral parapharyngeal fat pad, and to the ipsilateral hypopharynx. Mild mass effect upon the oral cavity on the RIGHT. Oral cavity and floor of mouth otherwise appear grossly unremarkable. The parotid and submandibular glands appear unremarkable, as do the packaging sales consultant spaces. Infrahyoid Neck: As above. The hypopharynx, larynx, and imaged infraglottic trachea otherwise appear unremarkable. The imaged upper esophagus appears grossly unremarkable. The thyroid gland is unremarkable in this modality. Lymph Nodes: Enlarged right-sided level 2 station lymph nodes are probably reactive, such as a 2 cm AP by 1.5 cm TR lymph node (reference 2:59). Subcentimeter in short axis lymph nodes elsewhere in the bilateral neck stations are nonspecific, but with some cortical thickening in level 1B station, where there probably also reactive. Carotid Space: No visible mass. Patent extracranial carotid systems and internal jugular veins bilaterally. Orbits, Face and Skull Base: The imaged paranasal sinuses show scattered mild mucosal thickening. Mild hazy opacities of probable secretions in the LEFT aspect of the nasal cavity. Incidentally noted impacted left-sided posterior mandibular molar tooth. The mastoid air cells are grossly clear. No visible destructive bony process in the skull base. Orbital soft tissue planes are preserved. Imaged intracranial contents: No grossly visible abnormal intracranial enhancement, significant mass effect, or hydrocephalus. Cervical spine and remaining osseous structures: Degenerative spine changes are present, with estimated up to moderate-severe right-sided neural foraminal stenosis at C5-C6 and on the LEFT at C3-C4, and milder stenoses elsewhere, as well as up to mild to moderate spinal canal stenosis and mild cord indentation at C3-C4. These may be better characterized with MRI if clinically warranted. No visible destructive bony process. Lung apices: No significant/dominant consolidation is seen. Coal Grader (topogram) images: Non-diagnostic. IMPRESSION: Noncontrast CT of the cervical spine shows findings compatible with a 2.8 cm right-sided tonsillar/peritonsillar abscess, given the clinical context. Associated moderate oropharyngeal airway narrowing, and likely reactive ipsilateral level 1 and 2 station lymph nodes. Other details above, including incidentally noted mild paranasal sinus mucosal thickening, and some degenerative spine changes and stenoses Salesforce Developer: PSCB Transcribe Date/Time: May 21 2021 10:14P Dictated by : ALEX VERDUGO MD This examination was interpreted and the report reviewed and electronically signed by: ALEX VERDUGO MD on May 21 2021 10:33PM EST [id number] HospitalED NOTEon [id number] NOTEHNO ID: [id number] Author: Charlene Rehman RN Service: ? Author Type: Registered Nurse Type: ED Notes Filed: 05/21/2021 9:08 PM Note Text: Atbx infusing. Awaiting CT. Airway remains patent. Cont pulse ox >97% RANormal Medina HospitalED NOTEHNO ID: [id number] Author: Charlene Rehman RN Service: ? Author Type: Registered Nurse Type: ED Notes Filed: 05/21/2021 8:46 PM Note Text: IV placed. Medicated per OCT. Labs sentOhioHealth Arthur G.H. Bing, MD, Cancer CenterED NOTEHNO ID: [id number] Author: Keely Paige RN Service: Nursing Author Type: Registered Nurse Type: ED Notes Filed: 05/21/2021 8:45 PM Note Text: COVID swab obtained and walked to lab.[facility] Cancer CenterED NOTEHNO ID: [id number] Author: Shantell Garcia RN Service: ? Author Type: Registered Nurse Type: ED Notes Filed: 05/21/2021 8:17 PM Note Text: Pt has a sore throat since yesterday. Today he can barely swallow d/t pain and swelling- on the right side..He has occasionally coughed but no sputum. Denies any fever chills. Has not lost his taste or smell.Pt has had the vaccine.[facility], MD, Cancer CenterED PROV NOTEon 04-39-2223RE [facility] NOTEHNO ID: [id number] Author: Joey Rivas MD Service: Emergency Medicine Author Type: Physician Type: ED Provider Notes Filed: 05/21/2021 11:46 PM Note Text: ED Provider Note Patient Name: Pineda Hicks SERVICE DATE: 05/21/21 History No chief complaint on file. Pineda Hicks is a 25 year old male with no pertinent PMHx presenting to the ED with a 2 day history of sore throat and cough. The patient states that he had noticed the cough first, which has been productive of green sputum, then the sore throat, but he is more concerned with the sore throat. The patient states that it has been increasingly difficult to swallow and his voice has been getting more and more muffled. The patient is rating his sore throat as a 7/10, constant, dull, aggravated with swallowing, coughing, and palpation, no reported alleviating factors (he's tried sudafed without much relief), associated symptoms include cervical adenopathy, cough, hoarse voice, not a/w f/c, headache, drooling, chest pain, shortness of breath, or other concerns. History reviewed. No pertinent past medical history. History reviewed. No pertinent surgical history. No family history on file. Social History Tobacco Use - Smoking status: Current Some Day Smoker - Smokeless tobacco: Current User - Tobacco comment: occasional Vaping Use - Vaping Use: current everyday user - Substances: Nicotine - Devices: Refillable tank Substance and Sexual Activity - Alcohol use: Yes Comment: social - Drug use: Not Currently - Sexual activity: Not on file ALLERGIES No Known Allergies Review of Systems Constitutional: Negative for chills, fatigue and fever. HENT: Positive for rhinorrhea, sore throat, trouble swallowing and voice change. Negative for congestion and drooling. Eyes: Negative for photophobia and visual disturbance. Respiratory: Positive for cough. Negative for choking, chest tightness, shortness of breath and stridor. Cardiovascular: Negative for chest pain. Gastrointestinal: Negative for abdominal pain, diarrhea, nausea and vomiting. Genitourinary: Negative. Musculoskeletal: Negative for neck pain and neck stiffness. Skin: Negative. Allergic/Immunologic: Negative for immunocompromised state. Neurological: Negative for headaches. Hematological: Positive for adenopathy. All other systems reviewed and are negative. Physical Exam BP 139/84 Pulse 81 Temp (Src) 98.8 (Oral) Resp 18 Ht 5' 8 (1.73m) Wt 170 lb (77.1kg) SpO2 99% BMI 25.85 kg/(m2). Physical Exam Vitals and nursing note reviewed. Constitutional: General: He is not in acute distress. Appearance: Normal appearance. He is normal weight. He is not ill-appearing, toxic-appearing or diaphoretic. HENT: Head: Normocephalic and atraumatic. Jaw: No trismus, tenderness, swelling, pain on movement or malocclusion. Right Ear: Hearing, tympanic membrane and ear canal normal. Left Ear: Hearing, tympanic membrane and ear canal normal. Nose: Nose normal. Mouth/Throat: Mouth: Mucous membranes are moist. Pharynx: Pharyngeal swelling, oropharyngeal exudate and posterior oropharyngeal erythema present. Tonsils: Tonsillar exudate and tonsillar abscess present. 3+ on the right. 1+ on the left. Eyes: Extraocular Movements: Extraocular movements intact. Conjunctiva/sclera: Conjunctivae normal. Cardiovascular: Rate and Rhythm: Normal rate and regular rhythm. Pulmonary: Effort: Pulmonary effort is normal. No respiratory distress. Abdominal: General: Abdomen is flat. Bowel sounds are normal. Palpations: Abdomen is soft. Tenderness: There is no abdominal tenderness. Musculoskeletal: General: Normal range of motion. Cervical back: Normal range of motion. No rigidity or tenderness. Lymphadenopathy: Cervical: Cervical adenopathy present. Skin: General: Skin is warm and dry. Capillary Refill: Capillary refill takes less than 2 seconds. Neurological: General: No focal deficit present. Mental Status: He is alert and oriented to person, place, and time. Psychiatric: Mood and Affect: Mood normal. Behavior: Behavior normal. Diagnostic Testing CT NECK SOFT TISSUE W IVCON Final Result IMPRESSION: Noncontrast CT of the cervical spine shows findings compatible with a 2.8 cm right-sided tonsillar/peritonsillar abscess, given the clinical context. Associated moderate oropharyngeal airway narrowing, and likely reactive ipsilateral level 1 and 2 station lymph nodes. Other details above, including incidentally noted mild paranasal sinus mucosal thickening, and some degenerative spine changes and stenoses Salesforce Developer: [facility] Transcribe Date/Time: May 21 2021 10:14P Dictated by : ALEX VERDUGO MD This examination was interpreted and the report reviewed and electronically signed by: ALEX VERDUGO MD on May 21 2021 10:33PM EST ED Labs Ordered and Reviewed BASIC METABOLIC PNL - Ab (more content not included)...[facility] Expedited [id number]-CoV-2 (COVID-19) RNA PRADEEP+probe Ql (Unsp spec) UPPER RESPIRATORY TRACT SWABNormalLlouis stokes clevel[facility] HospitalComment on above:Performed By: #### EXCOVD ####[facility] [phone] (COVID-19) RNA PRADEEP+probe Ql (Unsp spec)Negative for COVID19 (SARS CoV2) by RT-PCR or equivalent method.NormalNegative for COVID19 (SARS CoV2) by RT-PCR or equivalent method.[facility] HospitalComment on above: Result Comment: This test has been authorized by FDA under an Emergency Use Authorization (EUA).Performed By: #### EXCOVD ####Scientologist Alxknkot[address] [phone] A Strep (Adults)on 29-74-7869Jir A Strep AgNegativeNormalLutheran HospitalComment on above:Performed By: #### STRAG ####Scientologist [id number] [place] [phone] Grp A Strep SourceThroat SwabNormalLutheran HospitalComment on above:Performed By: #### STRAG ####Scientologist Jmyijtjl[address] [place] [phone] Slide Teston 74-95-6681Cfxf Slide TestNegativeNormal NEGATIVE screen for monoLutheran HospitalComment on above:Performed By: #### CBC, MONOLX, BMP ####Scientologist Gk[address]xlky[address] [place] [phone] ETHANOLon 20-63-4025ZXU GFPLMVB91.0 mg/dLHigh<10.0St. [facility] HospitalComment on above:Order Comment: CONSERVATIONResult Comment: UNCONFIRMED Toxicology results. For MEDICAL purposes only.Performed By: #### L500.98381, L500.94013, L500.34211 #### Test performed at: [address] [address]ZGU W/DIFFon 91-68-7421FPAM ABS0.1 K/uLNormal0.0-0.2St. [facility] HospitalComment on above:Order Comment: CONSERVATION Performed By: #### L200.96485 #### Test performed at: [address] [address]Apmwqtfpq/100 WBC (Bld)0.3 %NormalSt. Saint Elizabeth Community HospitalComment on above:Order Comment: CONSERVATIONPerformed By: #### L200.00156 #### Test performed at: [address] [address]ENI ABS0.2 K/uLNormal0.0-0.5St. [facility] HospitalComment on above:Order Comment: CONSERVATIONPerformed By: #### L200.77002 #### Test performed at: [address] [address]Asheoqsxijp/100 WBC (Bld)1.2 %NormalSt. Saint Elizabeth Community HospitalComment on above:Order Comment: CONSERVATIONPerformed By: #### L200.90492 #### Test performed at: [address] [address]Scjulouquin distribution width (RBC) [Ratio]11.8 %Normal 11.5-14.5St. [facility] HospitalComment on above:Order Comment: CONSERVATIONPerformed By: #### L200.47673 #### Test performed at: [address] [address]Mbjlwbbgfd (Bld) [Volume fraction]44.7 %Pbuuph71.0-55.0St. [facility] HospitalComment on above:Order Comment: CONSERVATION Performed By: #### L200.60825 #### Test performed at: [address] [address]Nzlaskvbpf (Bld) [Mass/Vol]15.4 g/rUUqswmp45.0-16.5St. [facility] HospitalComment on above:Order Comment: CONSERVATION Performed By: #### L200.86450 #### Test performed at: [address] [address]SA %0.2 %NormalSt. Saint Elizabeth Community HospitalComment on above:Order Comment: CONSERVATIONPerformed By: #### L200.63337 #### Test performed at: [address] [address]QB ABS0.03 K/uLNormal0-0.05St. [facility] HospitalComment on above:Order Comment: CONSERVATIONPerformed By: #### L200.85841 #### Test performed at: [address] [address]Qfhpnoujbgq (Bld) [#/Vol]3.1 10*3/uLNormal1.2-3.5St. [facility] HospitalComment on above:Order Comment: CONSERVATION Performed By: #### L200.51569 #### Test performed at: [address] [address]Skzrqrrbjsv/100 WBC (Bld)21.4 %NormalSt. [facility] Elizabeth Community HospitalComment on above:Order Comment: CONSERVATIONPerformed By: #### L200.29651 #### Test performed at: [address] (RBC) [Entitic mass]31.[address] xbLdwvuw69.4-34.6St. [facility] HospitalComment on above:Order Comment: CONSERVATIONPerformed By: #### L200.89193 #### Test performed at: [place] [id number] (RBC) [Mass/Vol]34.5 g/tZDqwvpp22.5-36.5St. [facility] HospitalComment on above:Order Comment: CONSERVATIONPerformed By: #### L200.92318 #### Test performed at: [place] [id number] (RBC) [Entitic vol]89.9 sUEgludj91.0-100.0St. [facility] HospitalComment on above:Order Comment: CONSERVATIONPerformed By: #### L200.44243 #### Test performed at: [place] [address]MONO ABS0.8 K/uLNormal0.0-1.0St. [facility] HospitalComment on above:Order Comment: CONSERVATIONPerformed By: #### L200.81707 #### Test performed at: [address] [address]Kvpwpxqnr/100 WBC (Bld)5.8 %NormalSt. [facility] Community HospitalComhutzel women's hospital on above:Order Comment: CONSERVATIONPerformed By: #### L200.14067 #### Test performed at: [address] [address]UXAUDHUGUM ABS10.2 K/uLHigh1.4-6.6St. [facility] HospitalComhutzel women[facility] hospital on above:Order Comment: CONSERVATIONPerformed By: #### L200.58434 #### Test performed at: [address] [address]Kygyiehuuqq/100 WBC (Bld)71.1 %NormalSt. [facility] HospitalComhutzel women's hospital on above:Order Comment: CONSERVATIONPerformed By: #### L200.33170 #### Test performed at: [address] [address]LMEE #0.000 K/uLNormal0-0.012St. [facility] HospitalComhutzel women's hospital on above:Order Comment: CONSERVATIONPerformed By: #### L200.87924 #### Test performed at: [address] [address]ZTDM %0.0 /100 WBCNormal0-0.2St. [facility] HospitalComment on above:Order Comment: CONSERVATIONPerformed By: #### L200.27188 #### Test performed at: [address] [address]Rhspuddx mean volume (Bld) [Entitic vol]10.0 fLNormal 8.7-12.4St. [facility] HospitalComhutzel women's hospital on above:Order Comment: CONSERVATIONPerformed By: #### L200.36300 #### Test performed at: [address] [address]Rxarpkxyr (Bld) [#/Vol]254 10*3/vNOwfmci297-687Pb. [facility] HospitalComment on above:Order Comment: CONSERVATIONPerformed By: #### L200.08491 #### Test performed at: [address] [address]PZY (Bld) [#/Vol]4.97 10*6/uLNormal3.5-5.5St. [facility] HospitalComment on above:Order Comment: CONSERVATIONPerformed By: #### L200.51964 #### Test performed at: [address] [address]PSV (d) [#/Vol]14.4 10*3/uLHigh3.9-11.0St. [facility] HospitalComment on above:Order Comment: CONSERVATIONPerformed By: #### L200.95428 #### Test performed at: [address] [address]TJRT META PANELon 35-16-1401Hqzksps [Mass/Vol]5.0 g/dL Normal3.4-5.0St. [facility] HospitalComment on above:Order Comment: CONSERVATIONPerformed By: #### L500.07902, L500.51259, L500.30718 #### Test performed at: [address] [address]QNE PHOS TOTAL83 U/TNumwow37-081Br. [facility] HospitalComment on above:Order Comment: CONSERVATIONPerformed By: #### L500.23098, L500.06409, L500.99472 #### Test performed at: [address] [address]ZTD [Catalytic activity/Vol]40 U/ZVfbyuc74-53Ou. [facility] HospitalComment on above:Order Comment: CONSERVATIONPerformed By: #### L500.96832, L500.38333, L500.94659 #### Test performed at: [address] [address]MFC [Catalytic activity/Vol]21 U/SRneoqj18-81Dj. [facility] HospitalComment on above:Order Comment: CONSERVATIONPerformed By: #### L500.34967, L500.64424, L500.21684 #### Test performed at: [address] [address]SNOQ TOTAL0.5 mg/dLNormal0.2-1.0St. [facility] HospitalComment on above:Order Comment: CONSERVATIONPerformed By: #### L500.96292, L500.74962, L500.19117 #### Test performed at: [address] [address]Isidvup [Mass/Vol]9.2 mg/dLNormal8.5-10.1St. [facility] HospitalComment on above:Order Comment: CONSERVATIONPerformed By: #### L500.07000, L500.01690, L500.98422 #### Test performed at: [address] [address]Rgyjpcaw [Moles/Vol]107 mmol/EMkcggg46-065Co. [facility] HospitalComment on above:Order Comment: CONSERVATIONPerformed By: #### L500.84161, L500.59760, L500.68067 #### Test performed at: [address] [address]IJ8 [Moles/Vol]27 mmol/PCzhasi35-34Ov. [facility] HospitalComment on above:Order Comment: CONSERVATIONPerformed By: #### L500.44281, L500.18401, L500.25099 #### Test performed at: [address] [address]Wnujhujnrg [Mass/Vol]1.110 mg/dLNormal0.700-1.300St. [facility] HospitalComment on above:Order Comment: CONSERVATION Performed By: #### L500.78456, L500.69029, L500.82225 #### Test performed at: [address] [address]Xtdjccn [Mass/Vol]54 mg/zEVaz99-50Nz. [facility] HospitalComment on above:Order Comment: CONSERVATIONResult Comment: Fasting GLUCOSE reference range has been updated per (ADA) [place] [employer]'s recommendation. 11/25/2018Performed By: #### L500.11122, L500.66510, L500.84096 #### Test performed at: [address] [address]Nweqxmghq [Moles/Vol]3.3 mmol/LCritically low3.5-5.1St. [facility] HospitalComment on above:Order Comment: CONSERVATIONResult Comment: Critical Result(s) Called at: 23:43:01 on 05/02/2021 by: Trina Khoury and read back by: kendrick arciniegaekPerformed By: #### L500.96930, L500.24447, L500.51819 #### Test performed at: [address] [address] [Mass/Vol]8.3 g/dLHigh6.4-8.2St. [facility] HospitalComment on above:Order Comment: CONSERVATIONPerformed By: #### L500.44988, L500.79561, L500.62894 #### Test performed at: [address] [address]Fehwgt [Moles/Vol]141 mmol/IMfsuqs008-160Rt. [facility] HospitalComment on above:Order Comment: CONSERVATIONPerformed By: #### L500.68192, L500.86762, L500.87334 #### Test performed at: [address] [address]Dxbo nitrogen [Mass/Vol]20 mg/dLHigh7-18St. [facility] HospitalComment on above:Order Comment: CONSERVATIONPerformed By: #### L500.78582, L500.95400, L500.16110 #### Test performed at: [place] [id number] Provider Reporton [id number] Provider ReportST. [facility] Pt Name: PINEDA HICKS MR#: [id number] [address] [place] [address] ACCT: [id number] : 94 EMERGENCY PROVIDER REPORT ADM Date: 05/02/21 ER Physician: Brandon Vega MD HPI HPI Time Seen by 5051 Triage Complaint REQUESTS DETOX Chief Complaint Substance Abuse Travel Out of [place] in last month No Country Visited None Symptoms of NONE Arrival Mode Walk-in Triage Note I have reviewed the patient's Nursing Triage note Source of Information PATIENT Tetanus Status Unknown HPI 25-year-old male here for detox of Percocet and Ativan. He has not had detox before. There is no vomiting no diarrhea no diaphoresis no weakness. Review of Systems Review of Systems Constitutional Denies Fever, Denies Chills, Denies Diaphoresis, Denies Weakness, Denies Weight loss, Denies Recent Illness EENT Denies: Vision Change, Vision Problems, Sore Throat, Dental Problems, Nasal Congestion, Nasal Drainage. CVS/Pulmonary Denies Chest pain, Denies Hurts to breath, Denies Shortness of breath, Denies Cough GI/ Denies: Abdominal Pain, Nausea, Vomiting, Diarrhea, Black Stools, Bloody Stools, Problems Urinating, Painful Urination. MS/SKIN/LYMPH Denies Extremity Pain, Denies Calf Pain, Denies Leg Pain, Denies Neck Pain, Denies Back Pain, Denies Joint Pain, Denies Ankle Swelling, Denies Leg Swelling, Denies Rash, Denies Swollen Glands Neuro/Psych Denies Headache, Denies Fainting, Denies Dizzy, Denies Loss of Sensation, Denies Weakness, Denies Difficulty Walking, Denies Difficulty with Speech, Denies Confusion All Others Negative ROS: All other systems reviewed and are negative. PMH/Social History Past Medical History Past Medical History Denies Dysrhythmia, Denies CHF, Denies CO, Denies HTN, Denies High Cholesterol, Denies Diabetic, Denies Neuropathy, Denies COPD, Denies Asthma, Denies CVA, Denies TIA, Denies Depression, Denies Bipolar, Denies Schizophrenia Medications/Allergies Medications/Allergies Home Medications I have reviewed the patient's Home Medication List Allergies Coded Allergies: NO KNOWN ALLERGENS (05/02/21) Physical Exam Physical Exam Vital Signs Initial Set Verdana 4d Result Date Time Pulse Ox 100 05/02 2306 B/P 140/85 05/02 2306 Temp 37.2 05/02 2306 Pulse 94 05/02 2306 Resp 20 05/02 2306 Insert my examGENERAL: The patient appears to be in no acute distress with no complaints at this time. EYES: Pupils equal and reactive to light and accommodation. There is no hyphema or other pathology appreciated. HEENT: The pharynx is clear with no tonsils or adenoid seen. There is no erythema or exudate. Tympanic membranes appear to be clear with no retraction and no perforation. Respiratory: Clear to auscultation bilaterally with good respiratory effort no wheezes rhonchi or rales. Cardiovascular regular rate and rhythm no murmurs rubs or gallops pulses 3+ and symmetrically in the radial pulses. Abdomen/GI soft, nontender, nondistended. Normal bowel sounds 3 no masses or organomegaly. no CVA tenderness. Neuro speech clear. Cranial nerves grossly intact. Normal sensation to light touch in all 4 extremities. Musculoskeletal: Good range of motion all extremities with no gross deformities. Straight leg raising is within normal limits bilaterally and ligaments appear to be intact in all extremities. There is no Homans sign or calf pain. Pedal pulses are present and active in both distal extremities. Back: No CVA pain or gross deformities noted there is no signs of subcutaneous crepitus swelling or pain in the paraspinal muscles. Tests EKG EKG shows NSR with normal intervals, normal QRS complexes, no ST elevation or depression, and no arrhythmias. Labs Laboratory Tests Verdana 4d 05/025 2305 Chemistry Sodium (136 - 145 mmol/L) 141 Potassium (3.5 - 5.1 mmol/L) 3.3 *L Chloride (98 - 107 mmol/L) 107 Carbon Dioxide (21 - 32 mmol/L) 27 BUN (7 - 18 mg/dL) 20 H Creatinine (0.700 - 1.300 mg/dL) 1.110 Est GFR ( Amer) (> 60) > 60 Est GFR (Non-Af Amer) (> 60) > 60 Glucose (70 - 99 mg/dL) 54 L Total Calcium (8.5 - 10.1 mg/dL) 9.2 mg/dL) 0.5 AST (15 - 37 U/L) 21 ALT (13 - 61 U/L) 40 Alkaline Phosphatase (45 - 117 U/L) 83 Serum Total Protein (6.4 - 8.2 gm/dL) 8.3 H Albumin (3.4 - 5.0 gm/dL) 5.0 Coagulation seconds) 10.9 INR (0.00 - 1.20) 1.02 Hematology WBC (3.9 - 11.0 K/uL) 14.4 H RBC (3.5 - 5.5 M/uL) 4.97 Hgb (14.0 - 16.5 g/dL) 15.4 Hct (39.0 - 55.0 %) 44.7 MCV (80.0 - 100.0 fL) 89.9 MCH (25.4 - 34.6 pg) 31.0 MCHC (31.5 - 36.5 g/dL) 34.5 RDW (11.5 - 14.5 %) 11.8 Plt Count (140 - 440 K/uL) 254 MPV (8.7 - 12.4 fL) 10.0 Immature Gran % (Auto) (%) 0.2 Neut % (Auto) (%) 71.1 Lymph % (Auto) (%) 21.4 Antelope % (Auto) (%) 5.8 Eos % (Auto) (%) 1.2 Baso % (Auto) (%) 0.3 Neut # (Auto) (1.4 - 6.6 K/uL) 10.2 H Lymph # (Auto) (1. (more content not included)...NormalSt. [facility] Community HospitalGFR ESTIMATEon 52-84-8509VS AMER> 60Normal> 60St. [facility] HospitalComment on above:Order Comment: CONSERVATIONResult Comment: eGFR (Estimated GFR) Units of measure:mL/min/1.73 meters sq. *CALCULATION REVISED 06/21/2015;IDMS-traceable MDRD equation eGFR is derived from the reexpressed MDRD Study equation using the following parameters: serum creatinine, age, gender and race. An eGFR<60 mL/min/1.73m2 for >3 months is consistent with chronic kidney disease. Refer to KDOQI guidelines for clinical interpretation.Performed By: #### L500.74257, L500.87182, L500.09613 #### Test performed at: [address] [address]UA non-AFR AMER> 60Normal> 60St. [facility] HospitalComment on above:Order Comment: CONSERVATIONPerformed By: #### L500.55335, L500.27982, L500.02209 #### Test performed at: [address] [address]LZDLZNJnp [id number] Coag (PPP) [Relative time]1.02 {INR}Normal0.00-1.20St. [facility] HospitalComment on above:Order Comment: CONSERVATION List patient's anticoagulants for PT: NONE SPECIFIEDResult Comment: Recommended therapeutic range is an INR of 2.0-3.0 except for prevention of recurrent acute CO and mechanical prosthetic heart valve where an INR of 2.5-3.5 is recommended.Performed By: #### L300.55998 #### Test performed at: [address] [address]LW SEC10.9 secondsNormal9.0-12.5St. [facility] HospitalComment on above:Order Comment: CONSERVATION List patient's anticoagulants for PT: NONE SPECIFIEDPerformed By: #### L300.70094 #### Test performed at: [address] [address]XJTA-QrJ-0ti 75-93-3283QNIL-CoV-2 (COVID-19) RNA PRADEEP+probe Ql (Unsp spec)Methodology: PCR Negative results do not preclude SARS-CoV-2 infection and should not be used as the sole basis for patient management decisions. Negative results must be combined with clinical observations, patient history, and epidemiological information. False-negative results may occur if the viruses are present at a level that is below the analytical sensitivity of the assay or if mutations are present in the regions targeted by the test. False negative or invalid results may occur due to interference or the presence of inhibitors. Improper collection, storage or transport of specimens may lead to false negative or invalid results. [employer] SARS-CoV-2 Test is only for use under the Food and Drug Administration's Emergency Use Authorization. The [employer] SARS-CoV-2 Test Letter of Authorization, along with the authorized Fact Sheet for Healthcare Providers, the authorized Fact Sheet for Patients, and authorized labeling are available on the FDA website: https://www.fda.gov/MedicalDevices/Safety/ EmergencySituations/sij377263.htm SARS-CoV-2 PRADEEP NOT DETECTEDNormalSCentral Valley General HospitalComment on above:Order Comment: CONSERVATION CBN: YES Turner: MAIN COVID Testing: ADMISSION (HOSPITAL) AGE at Spec CORA 25 Report age at specimen CORA? Y First test: NO Employed in Healthcare: NO Symptomatic as defined by CDC: NO Hospitalized for COVID-19? NO ICU: NO Resident in a Congregated Care Setting: NO Order Date: 05/03/21 : Not Performed By: #### M400.79542 #### Test performed at: [address] [address]NK NOTEon [id number] NOTEHNO ID: [id number] Author: Evy RiojasRn) AFSANEH Bhatti Service: ? Author Type: Registered Nurse Type: ED Notes Filed: 06/27/2020 10:19 PM Note Text: Discussed d/c and f/u instructions with pt. Pt alert and ambulatory. Discussed appropriate use of ED with pt, verbalized understanding. Discussed pt returning to ER with worsening symptoms. No further questionsNormal [facility] HospitalED NOTEHNO ID: [id number] Author: Marianna RiojasRn) AFSANEH Chapman Service: ? Author Type: Registered Nurse Type: ED Notes Filed: 06/27/2020 10:17 PM Note Text: Pt stable and ambulatory upon departure. Discharge instructions and details for follow up care given and reviewed. Pt verbalized understanding of instructions as well as how to follow up to continue their care. PT educated that they should return to the ED if their condition worsens. PT verbalized understanding of the education. Pt [facility] ED.[facility] CenterED NOTEHNO ID: [id number] Author: Evy Wayne) AFSANEH Bhatti Service: ? Author Type: Registered Nurse Type: ED Notes Filed: 06/27/2020 10:07 PM Note Text: Provider BB at bedside performing assessmentNormalEMarion General HospitalED PROV NOTEon [id number] PROV NOTEHNO ID: [id number] Author: Helga Waters) Anibal Service: Emergency Medicine Author Type: Physician Assessment Specialist Type: ED Provider Notes Filed: 06/28/2020 2:26 AM Note Text: ED Provider Note Patient Name: Pineda Hicks SERVICE DATE: 06/27/20 History Patient presents with: Well Adult Pt to ED and states he called off from work today because he is tired and works two jobs and requires a work note. He works at [employer] and has been lifting a lot and it cause koffi fatigue. He has no complaints right now. No medical problems. History reviewed. No pertinent past medical history. History reviewed. No pertinent surgical history. No family history on file. Social History Tobacco Use - Smoking status: Not on file - Smokeless tobacco: Current User Substance and Sexual Activity - Alcohol use: Yes Comment: social - Drug use: Not Currently - Sexual activity: Not on file ALLERGIES No Known Allergies Review of Systems Constitutional: Positive for fatigue (resolved). Negative for activity change, chills and fever. Respiratory: Negative for cough, chest tightness and shortness of breath. Cardiovascular: Negative for chest pain. Gastrointestinal: Negative for abdominal pain, nausea and vomiting. Musculoskeletal: Negative for arthralgias and myalgias. Skin: Negative for color change and rash. Neurological: Negative for dizziness, weakness, numbness and headaches. Psychiatric/Behavioral: Negative for behavioral problems. The patient is not nervous/anxious. All other systems reviewed and are negative. Physical Exam BP 139/84 Pulse 79 Temp (Src) 98.6 (Temporal) Resp 17 Ht 5' 8 (1.73m) Wt 170 lb (77.1kg) SpO2 100% BMI 25.85 kg/(m2). Physical Exam Vitals signs and nursing note reviewed. Constitutional: General: He is not in acute distress. Appearance: Normal appearance. He is well-developed. He is not ill-appearing or diaphoretic. HENT: Head: Normocephalic and atraumatic. Right Ear: External ear normal. Left Ear: External ear normal. Eyes: Conjunctiva/sclera: Conjunctivae normal. Neck: Musculoskeletal: Normal range of motion. Cardiovascular: Rate and Rhythm: Normal rate and regular rhythm. Pulses: Normal pulses. Heart sounds: Normal heart sounds. No murmur. Pulmonary: Effort: Pulmonary effort is normal. No respiratory distress. Breath sounds: Normal breath sounds. Abdominal: Palpations: Abdomen is soft. Musculoskeletal: Normal range of motion. Skin: General: Skin is warm and dry. Neurological: General: No focal deficit present. Mental Status: He is alert and oriented to person, place, and time. Motor: No weakness. Gait: Gait normal. Psychiatric: Behavior: Behavior normal. Diagnostic Testing ED Labs Ordered and Reviewed - No data to display Procedures ED Course / Clinical Impression Clinical Impressions as of Jun 28 217 Fatigue due to excessive exertion, initial encounter Return to work evaluation MDM / Disposition / Plan 24 year old male c/o well adult check x 1 days. Pt is well-appearing, afebrile and hemodynamically stable. Vital signs were normal. Pertinent physical exam findings revealed no abnormal findings. Labs and imaging not indicated. Pt given the following in the ED: Medications - No data to display Pt instructed to f/u with pcp as needed or in 7 days if symptoms do not improve and encouraged to return to ED if symptoms worsen or if new symptoms develop. Patient was educated on diagnosis. All questions were answered. Patient voiced understanding. The patient has received a medical screening examination and within reasonable clinical confidence an emergency medical condition has not been identified. The likelihood of other entities in the differential is insufficient to justify any further testing. This was explained to the patient. The patient was advised that persistent or worsening symptoms would require further evaluation. Vital signs were reviewed. Triage records were reviewed. Medical records were reviewed. Nursing notes were reviewed and incorporated. Chart review from relevant prior emergency / outpatient visits were reviewed. Relevant medical history in electronic chart was reviewed. Diagnostic test results were reviewed with patient. Disposition The patient was discharged. Counseled patient regarding suspected diagnosis. As well as the need for follow-up. Discharged home with verbal and written instructions. They were instructed to return as needed for persistent or worsening symptoms or any new concerns. Condition at disposition is improved and stable. SIGNATURE: ARTEM Corona Pa-C 06/28/20 0226NormalEuclid HospitalED NOTEon [id number] NOTEHNO ID: [id number] Author: Yue RiojasRn) AFSANEH Butler Service: ? Author Type: Registered Nurse Type: ED Notes Filed: 06/27/2020 9:48 PM Note Text: Pt to ED and states he called off from work today because he is tired and works two jobs and requires a work note.NormalEuclid HospitalGROUP A STREP,PCRon [id number] A STREP,PCRNOT DETECTEDNormalNot DetectedSutter Lakeside Hospital Comment on above:Result Comment: This test was performed utilizing an FDA- cleared rapid nucleic acid amplification by PCR to qualitatively detect Group A Streptococci from throat swab specimens without the need for culture confirmation of negative results.Performed By: #### GAPC1 #### [address] [address]Gcx Specimen SourceThroaSheltering Arms HospitalComment on above:Performed By: #### GAPC1 #### [address] [address]Ibniuihr Note - ED v2on [id number] Note - ED g8Cpjhjgqb Note - ED v2: Chart Review: ED NOTES ED NOTES: HPI: 23-year-old male, otherwise healthy, presents with a sore throat for the last 3 days. It is associated with a dry cough. Denies any fever or chills, headaches or dizziness, vomiting or diarrhea. Denies ear pain. Denies any known sick contacts. Denies recent antibiotics. He took Tylenol yesterday which helped improve his symptoms. Tonight he had a hard time sleeping because the pain in his throat. He denies any difficulty speaking or breathing but has pain with swallowing. No excessive drooling. Review of Systems: A complete 14 point review of systems was done and is negative except as documented in the history of present illness. Negative except as documented in history of present illness Constitutional: Negative except as documented in history of present illness Skin: Negative except as documented in history of present illness Head: Negative except as documented in history of present illness EENT: Negative except as documented in history of present illness Neck: Negative except as documented in history of present illness Cardiac:Negative except as documented in history of present illness Pulmonary: Negative except as documented in history of present illness GI: Negative except as documented in history of present illness : Negative except as documented in history of present illness Musculoskeletal: Negative except as documented in history of present illness Hematologic: Negative except as documented in history of present illness Endocrine:Negative except as documented in history of present illness Neurological: Negative except as documented in history of present illness Psych: Negative except as documented in history of present illness Physical Exam: Appearance: Alert, No acute distress. Well nourished & well hydrated. Non toxic appearing Skin: Warm, dry, intact, no rash Head: Normocephalic, atraumatic Eyes: PERRLA, EOMs intact without pain, clear conjunctiva with no redness or exudates. Corneal and anterior chambers are clear. ENT: Bilateral TMs are unremarkable, EACs are clear. Nares patent. Moist mucous membranes. Clear oropharynx, mild pharyngeal erythema, no tonsillar swelling or exudates Neck: Supple. Trachea at midline. No meningeal signs, no lymphadenopathy Pulmonary: Lungs clear to auscultation bilaterally. No rales, rhonchi or wheezing. No accessory muscle use or stridor. Cardiac: Normal S1, S2 without murmur. Abdomen: Soft, nontender, active bowel sounds. No rebound or guarding. Musculoskeletal: Full range of motion of all joints. No tenderness or deformity. Pulses present equally bilaterally. No cyanosis, clubbing, or edema. Neurological: A&O x3. No focal neuro deficits. Cranial nerves intact Psychiatric: Cooperative, Appropriate mood and affect. - Physical exam findings, workup, treatment and results were discussed and agreed upon with my supervising physician throughout the patients stay. HISTORY OF PRESENTING ILLNESS PINEDA is a 23 year old Male and was seen by me at 20-Sep-2019 01:23 for a chief complaint of sore throat (pt states he has had a sore throat and cough for about 3 days. Having trouble sleeping d/t the pain)(1). Triage Information: Most recent Vital Sign Value Date Temp (F): 96.9 09-20-2019 01:19 Temp (C): 36.1 09-20-2019 01:19 Heart Rate (beats/min): 100 09-20-2019 01:19 Respirations (breaths/min): 18 09-20-2019 01:19 SpO2 (%): 99 09-20-2019 01:19 BP Systolic (mm Hg): 149 09-20-2019 01:19 BP Diastolic (mm Hg): 86 09-20-2019 01:19 PAST MEDICAL HISTORY ATTESTATION: I have reviewed and confirmed nurse's/medic's notes for patient's medications, allergies, medical history, and surgical history ALLERGIES/INTOLERANCES: No Known Allergies HEALTH HISTORY: No documented data. OUTPATIENT MEDICATIONS: Home Medications Review Status for Reconciliation: N/A Med Status: N/A No documented data. SIGNIFICANT EVENTS: No documented data. RESULTS/VITAL SIGNS VITAL SIGNS: T PRBP SpO2O2(LPM) %FiO2 Method 20-Sep-2019 01:19:00-36.197588435/86 99 room air, no respiratory support MEDICAL DECISION MAKING/ED COURSE MDM/ED COURSE: Patient was seen and examined. Patient is well-appearing, nontoxic, no acute distress, presents with complaints about a sore throat for the last 3 days. Exam is essentially unremarkable, some mild pharyngeal erythema present. We will swab for strep Strep test is negative. I recommended anti-inflammatories and supportive treatment at home. Plan and Disposition: Home going. Patient asked to follow-up with the primary physician in the next 2-3 days. Return if any worsening symptoms or concerns. Strict return precautions discussed CLINICAL IMPRESSION Diagnosis/Annotation: ED Dx Name:Acute pharyngitis Code:J02.9 Dispostion: discharged Type: home ATTESTATION CRITICAL CARE TIME Is this a critically ill patient: no Electronic Signatures: Jemima Milton (PAC) (Signed 20-Sep-2019 02:16) Authored: Provider Note - ED v2 Last Updated: 20-Sep-2019 02:16 by Jemima Milton (PAC) References: 1. Data Referenced From Triage - ED 20-Sep-2019 01:19[facility]Risk Screen - Adult Emergencyon [id number] Screen - Adult Emergency Preferred Language: Preferred Language: Preferred Language for Discussing Health Care (patient/designee)Monegasque Advanced Directives: Advance Directive/DNRno Family Violence Adult: Abuse Screen: Are you or have you been threatened or abused physically, emotionally, or sexually by anyoneno Learning Assessment (Patient): Learning Assessment (Patient): Patient is Able to be Assessed for Learningyes Factors Influencing Readiness to Learnacuteness of illness Factors that Impact Ability to Learnnone Devices/Methods Used to Communicatenone Learning Preferencesverbal instruction Cultural Considerationsnone Developmental Considerationsnone Taoism Considerationsnone Learning Assessment (Other Learner): Learning Assessment (Other Learner): Other learner availableno Pressure Injury/TB/Substance: Pressure Injury: Do you have a coughyes... Has your cough lasted longer than 2 weeksno Substance Use Current or Former Historynever: Alcohol, Street Drugs YES: Cigarette/Tobacco Smoking Statusformer smoker Admission Risk Screen: Significant IndicatorsComplete CAGE: CAGE: Is this an injured patient at a Trauma Center ([facility]/[place]): no Electronic Signatures: Hernando Greenfield (AFSANEH) (Signed 20-Sep-2019 01:27) Authored: Preferred Language, Advanced Directives, Family Violence Adult, Learning Assessment (Patient), Learning Assessment (Other Learner), Pressure Injury/TB/Substance, CAGE Last Updated: 20-Sep-2019 01:27 by Hernando Greenfield (AFSANEH)[facility] SouthTriage - EDon [id number] - Lai Triage: The patient and/or guardian verbally acknowledges placement for services into the following (when Urgent Care Service hours are operating):emergency department Chart Review: CHIEF COMPLAINT PINEDA HICKS is a Male patient with a chief complaint of sore throat (pt states he has had a sore throat and cough for about 3 days. Having trouble sleeping d/t the pain). Triage Date/Time: 20-Sep-2019 01:19 Pain location: 8 Vital Signs: Temperature: 96.9F ( 36.1C) taken temporal Blood Pressure: 149/86 Mean: Heart Rate: 100 Respiratory Rate: 18 Pulse Oximetry: 99% on room air, no respiratory support. Height: 5 feet 9.00 inches. 175.2 CM Weight: 170.0 pounds. Calculated 77.1 kg. (stated) Calculated BMI (kg/m2): 25.118 Calculated BSA (m2) 1.94 Rm Coma Scale: Best Eye Response: (E4) spontaneous Best Motor Response: (M6) obeys commands Best Verbal Response: (V5) oriented Rm Score: 15 Allergies: no Patient has homicidal thoughts: no LIZY: 3V Symptoms Are POSITIVE For: congestion and cough. Symptoms Are Negative For: anorexia, chills, FB sensation, fever, laryngitis, mouth sores, postnasal drip and earache. Risk Screens Suicide Risk Screen In the Past Month: Have you wished you were or wished you could go to sleep and not wake up no In the Past Month: Have you had any actual thoughts of killing yourself no In Your Lifetime: Have you ever done anything, started to do anything, or prepared to do anything to end your life no Otero Fall Scale Screening Has the patient fallen before (or is the patient in the ED as a result of a fall) has not had a fall Does the patient have an impaired gait does not have impaired gait Is the patient cognitively impaired not cognitively impaired Interventions: Branden Fall Interventions: *patient oriented to surroundings and call system, * patient/family falls education completed and documented, *patients fall status communicated during bedside handoff, *whiteboard updated, *mode of toileting discussed with patient, *bed in low position with brakes locked, *call light in reach, * non-skid footwear PAIN Pain Scale Used: HUSEYIN ARRIVAL INFORMATION Means of Arrival: Ambulatory Mode of Arrival: private vehicle PRIMARY ASSESSMENT PINEDA HICKS's primary assessment is Within Normal Limits. The airway is open and patent. Breathing spontaneous and unlabored with clear breath sounds bilaterally. Circulation is normal with good peripheral pulses. Skin is warm and dry and color is normal for race. 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 Phone: [facility] [employer] [id number] 14:30-0400Body mass index (BMI) [Ratio]32.36 kg/f4Azknvyfrwmary beth Olmedo COMPUTER SECURITY COORDINATOR-HAT CONE INSPECTOR Work Phone: [facility]08-28-2025 14:30-0400Body ffawzqwgklb47.49 [degF]Valdo Olmedo COMPUTER SECURITY COORDINATOR-HAT CONE INSPECTOR Work Phone: [facility]08-28-2025 14:30-0400Body bndqea47.53 kgAlemary beth Olmedo COMPUTER SECURITY COORDINATOR-HAT CONE INSPECTOR Work Phone: [facility]08-28-2025 14:30-0400Diastolic blood eqjfyfix75 mm[Hg]Valdo Olmedo COMPUTER SECURITY COORDINATOR-HAT CONE INSPECTOR Work Phone: [facility] [employer] [id number] 14:30-0400Heart rate 79 /minAlemary beth Olmedo COMPUTER SECURITY COORDINATOR-HAT CONE INSPECTOR Work Phone: [facility]08-28-2025 14:30-9266XnT9% (BldA) [Mass fraction]99 %Valdo Olmedo COMPUTER SECURITY COORDINATOR-HAT CONE INSPECTOR Work Phone: [facility] [employer] [id number] 14:30-0400Systolic blood tcoedfzo203 mm[Hg]Valdo Olmedo COMPUTER SECURITY COORDINATOR-HAT CONE INSPECTOR Work Phone: [facility] [employer] [id number] 14:01-0400Body pptdze881.7 cmAkaterinlandry Omledo COMPUTER SECURITY COORDINATOR-HAT CONE INSPECTOR Work Phone: [facility] [employer] Bqbxoz77-49-7870 14:01-0400Body mass index (BMI) [Ratio]30.5 kg/c3Oyfwhjkkamary beth Olmedo COMPUTER SECURITY COORDINATOR-HAT CONE INSPECTOR Work Phone: [facility]06-26-2025 14:01-0400Body ywskdujvdos02.81 [degF]Valdo Olmedo COMPUTER SECURITY COORDINATOR-HAT CONE INSPECTOR Work Phone: [facility]06-26-2025 14:01-0400Body wrgmcu95.99 kgAlemary beth Olmedo COMPUTER SECURITY COORDINATOR-HAT CONE INSPECTOR Work Phone: [facility]06-26-2025 14:01-0400Diastolic blood mm[Hg]Valdo Olmedo COMPUTER SECURITY COORDINATOR-HAT CONE INSPECTOR Work Phone: [facility]06-26-2025 14:01-0400Heart rate 71 /minValdo Olmedo COMPUTER SECURITY COORDINATOR-HAT CONE INSPECTOR Work Phone: [facility]06-26-2025 14:01-2729VgD3% (BldA) [Mass fraction]96 %Valdo Olmedo COMPUTER SECURITY COORDINATOR-HAT CONE INSPECTOR Work Phone: [facility]06-26-2025 14:01-0400Systolic blood hreobgmp242 mm[Hg]Valdo Olmedo COMPUTER SECURITY COORDINATOR-HAT CONE INSPECTOR Work Phone: [facility]12-27-2024 08:40-0500Body lbqiicbvotx56.49 [degF]Dahiana Johnson MD Work Phone: RptpaAsaiix89-995599IjqxgJxbquo39-08-0213 08:40-0500Diastolic blood hxwddxmy54 mm[Hg]Dahiana Johnson MD Work Phone: [phone]xWqeiji07-11-7978 08:40-0500Heart rate93 /min Dahiana Johnson MD Work Phone: YabgcNpekzc07-168042IcwerCzjcvy85-65-6722 08:40-0500Respiratory rate16 /minEalbert Johnson MD Work Phone: KwtsfQlsddn30-833653KrrfdKlggac75-37-1531 08:40-3484WfW8% (BldA) [Mass fraction]97 %Dahiana Johnson MD Work Phone: KjdjdKjripk44-386772DaxmsEszyvq13-57-8729 08:40-0500Systolic blood drxchyye314 mm[Hg]Dahiana Johnson MD Work Phone: CzgniVcjdzm39-161491ZtztyRkgdbs88-17-2607 05:22-0500Body mhkpig934.7 cmNo Generic Provider [facility]12-22-2024 05:22-0500Body mass index (BMI) [Ratio]25.85 kg/m2No Generic Provider [facility]12-22-2024 05:22-0500Body vayjcxpuqfw42.3 [degF]No Generic Provider [facility]12-22-2024 05:22-0500Body gibkwn56.11 kgNo Generic Provider [facility]12-22-2024 05:22-0500 Diastolic blood obflkeef43 mm[Hg]No Generic Provider [facility]12-22-2024 05:22-0500Heart bvpv220 /minNo Generic Provider [facility]12-22-2024 05:22-0500Respiratory rate18 /minNo Generic Provider [facility]12-22-2024 05:22-9345BrG3% (BldA) [Mass fraction]99 %No Generic Provider [facility] 08-23-2024 05:22-0500Systolic blood qrbjnqet842 mm[Hg]No Generic Provider [facility]12-17-2024 06:26-0500Body flcwaenhczz25.3 [degF]Roberto Cota MD Work Phone: [phone] [place], [place] 8010612-17-2024 06:26-0500 Diastolic blood djjsrjoi38 mm[Hg]Roberto Cota MD Work Phone: [address] [place], [place] 7859412-17-2024 06:26-0500 Heart rate88 /Christo Cota MD Work Phone: [phone] [place], [place] 8010612-17-2024 06:26-0500 Respiratory rate16 /Christo Cota MD Work Phone: [phone] [place], [place] 8010612-17-2024 06:26-0500 SaO2% (BldA) [Mass fraction]98 %Roberto Cota MD Work Phone: [facility]12-17-2024 06:26-0500 Systolic blood mm[Hg]Roberto Cota MD Work Phone: [facility]12-08-2024 18:56-0500 Body mass index (BMI) [Ratio]26.82 kg/o5VismegyhRoberto Cota MD Work Phone: [facility]12-08-2024 18:56-0500 Body kgRoberto Cota MD Work Phone: [facility]12-08-2024 17:28-0500 Body ebrfws197.7 cmRoberto Cota MD Work Phone: [facility]12-08-2024 11:45-0500 Diastolic blood unypmzab07 mm[Hg]Josefina Torres MD Work Phone: [phone] [place], [place] 9202512-08-2024 11:45-0500 Heart rate98 /Funmilayo Torres MD Work Phone: [address] [place], [place] [address]12-08-2024 11:45-0500 Systolic blood muhxvzxy520 mm[Hg]Josefina Torres MD Work Phone: [phone] [place], [place] [address]202512-08-2024 08:20-0500 Body xnaklljjqyt67.2 [degF]Josefina Torres MD Work Phone: 1216[facility] [place], [place] [address]12-08-2024 08:20-0500 Respiratory rate16 /Funmilayo Torres MD Work Phone: 1216[facility] [place], [place] [address]12-08-2024 08:20-0500 SaO2% (BldA) [Mass fraction]98 %Josefina Torres MD Work Phone: [phone] [place], [place] 7106311-27-2024 09:39-0500 Body serosxzxyzn12Gwimtdrl Stringer MD Work Phone: [phone] [place], [place] [address]6311-27-2024 09:39-0500 SaO2% (BldA) [Mass fraction]100 %Josefina Torres MD Work Phone: [facility]11-27-2024 09:22-0500 Body gbodyolwxdg73.0 degrees CelGood Samaritan HospitalComment on above:Performed By: #### [id number] ####DORYS Morocho ([id number])[facility] ([facility])[address] [place] [address] Performed By: #### [id number] ####DORYS Morocho ([id number])[facility] ([facility])[address] [place], [place] [address]-27-2024 09:22-1427WvP2% (BldA) [Mass fraction]100 %TONIE [facility] Beachwood Medical CenterComment on above:Performed By: #### [id number] ####DORYS Morocho ([id number])[facility] ([facility])[address] [place], [place] [address]Performed By: #### [id number] ####DORYS Morocho ([id number])[facility] ([facility])[address] [place] [address] [id number] 01:37-0500Body wowbboensvj39Hapjlhcm Stringer MD Work Phone: [facility]11-27-2024 01:16-0500 Body .0 degrees CelsiACMC Healthcare System GlenbeighComment on above:Performed By: #### [id number] ####DORYS Morocho ([id number])[facility] ([facility])[address] [place] [address] 07-28-2024 22:17-0500Body llcgfwqizdc51Dbvoslbd Stringer MD Work Phone: [facility]11-26-2024 21:26-0500 Body wfyvkaqozaw64.0 degrees CelsiACMC Healthcare System GlenbeighComment on above:Performed By: #### [id number] ####DORYS Morocho ([id number])[facility] ([facility])[address] [place] [address] 07-28-2024 16:01-0500Body wlrrdjxvvpz44Npejcubc Stringer MD Work Phone: [phone]-[facility]11-26-2024 15:59-0500 Body tzwcqpkbdum20.0 degrees CelsiusAMY [facility] Medical CenterComment on above:Result Comment: NOTE: Patient Results are Not Corrected for TemperaturePerformed By: #### [id number] #### DORYS Morocho ([id number]) [facility] ([facility]) [address] [place], [place] 8785720-72-6067 15:47-0500Body raaagd303.6 cmSnew Torres MD Work Phone: [phone]-[facility]11-26-2024 15:47-0500 Body mass index (BMI) [Ratio]28.47 kg/x2DnjuinapJosefina Torres MD Work Phone: [facility]11-26-2024 15:47-0500 Body mxcwyr04 kgSabeatrice Torres MD Work Phone: [phone]-[facility]11-08-2024 11:20-0500 Body davvuxbqujd66.01 [degF]Billy Resendes DO Work Phone: [phone]kYdhfwk22-71-7493 11:20-0500Diastolic blood mm[Hg]Billy Resendes DO Work Phone: [phone]GjxxxEydlfh77-32-1280 11:20-0500Heart lflm877 /min Billy Resendes DO Work Phone: [phone]405JvkkpCfmviy13-01-1500 11:20-0500Respiratory rate18 /minJustin Resendes DO Work Phone: [phone]UxewaJqdibb22-74-3688 11:20-1661ZmM9% (BldA) [Mass fraction]100 %Billy Resendes DO Work Phone: [phone]3-553403NjytcLkaqdr29-73-6260 11:20-0500Systolic blood ysyfuemy373 mm[Hg]Billy Fernandes DO Work Phone: [phone]653XhpszTkxzmr02-75-9125 11:33-0500Body fbrewk329.7 cm Kimi Davison DO Work Phone: [facility]11-06-2023 11:33-0500Body .74 kgKimi Davison DO Work Phone: [facility]11-06-2023 11:33-0500Diastolic blood mm[Hg]Kimi Davison DO Work Phone: [place] [address]-06-2023 11:33-0500Heart rate92 /min Kmii Davison DO Work Phone: [facility]11-06-2023 11:33-9444OtD5% (BldA) [Mass fraction]100 %Kimi Davison DO Work Phone: [facility]11-06-2023 11:33-0500Systolic blood bgshxxoo919 mm[Hg]Kimi Davison DO Work Phone: [facility]10-26-2020 21:07-0400Body yafyow56.2 kgDodie Peralta Encounters Encounter DateEncounter Type[facility] ProviderFacilityStart: 06-22-2025 End: 72-42-0049Zhbbihayk department patient visitALEXANDRA ROJASProMedica [facility] Hospitaltart: 06-21-2025 End: 89-49-8036Zfbwbnowe department patient visitALEXANDRA ROJASProMedica [facility] Hospitaltart: 06-14-2025 End: 91-82-9565VgyeioJwycirwaw Rojas APRN-ROMELIA Work Phone: [facility] MedicineComment on above: NauseaStart: 05-14-2025 End: 54-07-9148mncobqzhmgJagbspq [place] RNProMedica Call CenterStart: 04-29-2025 End: 42-97-0870Aaxste outpatient visit 25 minutesAlemary beth Olmedo COMPUTER SECURITY COORDINATOR-HAT CONE INSPECTOR Work Phone: [facility] Family MedicineComment on above: Hx of fracture of femur (Primary Dx); Muscle spasm of right leg; Nausea; Gastroesophageal reflux disease, unspecified whether esophagitis present; Insomnia, unspecified typeStart: 04-29-2025 End: 11-33-0495jzrjlymvvkDVOIGDSDPTexas [facility] Ambulatory PPGStart: 04-15-2025 End: 99-74-0360UfysqeCzwmzxxlu Olmedo COMPUTER SECURITY COORDINATOR-HAT CONE INSPECTOR Work Phone: [facility] MedicineStart: 04-08-2025 End: 20-47-9566OhckorPauukjgwh Olmedo COMPUTER SECURITY COORDINATOR-HAT CONE INSPECTOR Work Phone: [facility] MedicineStart: 03-13-2025 End: 06-60-7033Bjmelu OnlyAlemary beth Olmedo COMPUTER SECURITY COORDINATOR-HAT CONE INSPECTOR Work Phone: [facility] MedicineStart: 03-12-2025 End: 77-54-2970Sjxvjoyil encounterNelly RandalloMedolvin Physicians Family MedicineComment on above:Medication ProblemsStart: 03-09-2025 End: 78-88-0911Jrzgujohy encounterSherin Freeman CMAProMedica Physicians Family MedicineStart: 02-25-2025 End: 31-84-8237Nkdywk outpatient new 45 minutesAlexanisha Olmedo COMPUTER SECURITY COORDINATOR-HAT CONE INSPECTOR Work Phone: [facility] Hospitalca Physicians Family MedicineComment on above: Anxiety (Primary Dx); Encounter to establish care; Hx of substance abuse ([facility]-HCC); Hx of fracture of femur; Muscle spasm of right legStart: 02-25-2025 End: 73-30-6099rfbmvgpabwIJJIVNKEJTexas [facility] Ambulatory PPGStart: 02-04-2025 End: 87-82-1472Nhplmgqhz department patient visitNO PCP [facility]art: 12-28-2024 End: 66-05-6403mraqronpjtLydiqjfIrene Palmacility:PM Hilda Start: 10-03-2024 End: 80-12-9805Fkfgtw encounterMetroHealthStart: 09-14-2024 End: 32-25-5050Djpvkfept department patient visitThwily Ruiz II DO [facility]art: 09-12-2024 End: 81-43-4826Lblqohobc department patient visitNO PCP NO PCPProMedica J.[facility]. [facility] Hospitaltart: 09-02-2024 End: 33-71-8794Duqxvgbkq department patient visitNICOLE ZELLFacility:[phone] Start: 08-28-2024 End: 65-42-5596Mhcmfahin department patient visitDahiana Johnson MD Work Phone: [facility] Emergency MedicineComment on above: Leg/thigh symptoms (Right femur surgery one month ago, lost pain meds. )Start: 08-24-2024 End: 49-90-4456omqxqdxumfBVZEWJJPilar BUSBYVeterans Health Administrationtart: 08-24-2024 End: 34-18-8713Yrbcks follow up visit related to original Quang Zhu PA-C Work Phone: [facility] BolwellComment on above: Traumatic closed displaced fracture of shaft of femur, right, initial encounter (Primary Dx)Start: 08-23-2024 End: 40-93-5384Bwqcvnjnd department patient visitNO ASSIGNED PCP GENERIC PROVIDERRiverview Medical Center Emergency MedicineComment on above:Fall, initial encounter (Primary Dx); Pain of right hip; Pain of right thighStart: 08-09-2024 End: 65-27-2608Zcyzewxewu and management of inpatientNicshahla Cota MD Work Phone: [facility] RehabComment on above:Intertrochanteric fracture of femur, sequela; Traumatic closed displaced fracture of shaft of femur, right, initial encounter; History of substance use disorderStart: 06-86-8899Nrenhnwrmt and management of inpatientAMY P [facility] Centertart: 08-01-2024 End: 16-50-4424JdcpmtQfyiar Resendes DO Work Phone: AdministrationComment on above:RefillStart: 07-28-2024 Critical care ill/injured patient addl 30 Funmilayo Torres MD Work Phone: [facility] Work Phone: Start: 07-25-3817Rckwhylj care ill/injured patient init 30-74 Funmilayo Torres MD Work Phone: [facility] Work Phone: Start: 07-28-2024 End: 08-76-1981Tfqogjghxg and management of inpatientSnew Torres MD Work Phone: [facility] Karlee [place]ascade 8Start: 07-10-2024 End: 26-90-1997ragzjygtzfWfdpz SchofieldMetroHealth Emergency MedicineStart: 07-10-2024 End: 43-55-8674Vhajsazbd department patient visitJustin Resendes DO Work Phone: [facility] Emergency MedicineComment on above: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 Last used yesterday at 3pm. )Start: 07-05-2024 End: 94-61-8132Rvjusgftt department patient visitRachell Soriano PA-C [facility] HospitalStart: 06-29-2024 End: 51-34-6097Eikyrquxq department patient visitNO PCP NO PCPProMedica [facility] HospitalStart: 63-69-8699znpekhjxanIAlbino ALEGREAvibryce Pepeekeo HospitalStart: 27-99-7628gshsnlaplpERJP SELFAvita Pepeekeo HospitalStart: 81-74-0506zgtfrlujim SELF SELFAvita Pepeekeo HospitalStart: 14-85-5305twwkjygjhaGGWG SELFAvita Pepeekeo HospitalStart: 13-93-8986zwlublimwrQFWY SELFAvita Pepeekeo HospitalStart: 66-81-7901glwijgwdmsJFOE SELFAvibryce Pepeekeo HospitalStart: 79-16-1710stymudgswmH. RAMONA ALEGRESanta Teresita Hospital HospitalStart: 40-24-3894meukxqtugbF. RAMONA MANAdventist Health [facility] Heart HospitalStart: 09-23-2023 End: 68-39-9180tjiqvooamuGDJJW GEORGEFacility:[facility] Healthtart: 93-32-2520fvwnitvqymBg Pcp [facility] EnterpriseStart: 07-29-2023 Telephone encounterNicole Saman DO Work Phone: [facility] HospitalComhutzel [facility] on above:Medication RequestStart: 07-08-2023 End: 10-86-6005cjcmqrswboVDADDS ZELLFacility:[facility] Healthtart: 07-08-2023 End: 91-03-5005Phwjqh outpatient visit 25 minutesNicole Saman DO Work Phone: [facility] HospitalComment on above:Chronic pain of right knee (Primary Dx); Difficulty sleepingStart: 07-05-2023 End: 04-01-9567Zitwgugth department patient visitDAFLAQUITA GONZALEZ Facility:[facility] Procedures DateProcedureProcedure DetailPerforming ClinicianStart: 38-46-8361Gtven depression screening assessmentValdo Olmedo COMPUTER SECURITY COORDINATOR-HAT CONE INSPECTOR Work Phone: Start: 35-47-1586Cpyzo depression screening assessment Valdo Olmedo COMPUTER SECURITY COORDINATOR-HAT CONE INSPECTOR Work Phone: Start: 72-35-9402Lbtbiuitdg examination femur minimum 2 Gerhard Elder COMPUTER SECURITY COORDINATOR-HAT CONE INSPECTOR Work Phone: Start: 95-18-5404Vxedy metabolic panel calcium total Roberto Cota MD Work Phone: Start: 20-48-0434Ibeva count complete Cherrie Leyva PA-C Work Phone: Start: 70-40-4481VHDHOWW RBCLuana Raphael PA-C Work Phone: [phone]: 51-09-0239Cvdoh count complete automatedLucrodrigo Zhong Toribio PA-C Work Phone: [phone]: 83-17-5290Qnrhn typing serologic rh (d)Tha G Toribio PA-C Work Phone: [phone]: 50-86-8877Mxlwqfo quantitative blood xcpt reagent stripFred Howell MD Work Phone: [phone]: 85-79-3495Srowz count complete automatedLuana Raphael PA-C Work Phone: [phone]: 41-19-0835Ipyilop quantitative blood xcpt reagent Kev Howell MD Work Phone: [phone]: 17-74-5482Hhnyz count complete automatedLuana Arphael PA-C Work Phone: [phone]: 44-50-2356Jfepi function panelLucas Trevin Toribio PA-C Work Phone: [phone]: 01-69-6218Cxhcnwzikpxduh time partial plasma/whole bloodAdashara Sheriff Eileen PA-C Work Phone: [phone]: 86-34-6538Dhurbuf quantitative blood xcpt reagent Kev Howell MD Work Phone: [phone]: 61-22-3509Yiowsms quantitative blood xcpt reagent David Robles MD Work Phone: [phone]: 42-39-1733Psvri function panelSamanliudmila Dias PA-C Work Phone: [phone]: 67-58-8654Txukkyz quantitative blood xcpt reagent David Robles MD Work Phone: Start: 84-17-1559Bjrscyt quantitative blood xcpt reagent Vida Blankenship MD Work Phone: [phone]: 33-14-5846Zkcvlhuw Neva Dill MD Work Phone: Start: 92-24-5220GX tomography Unspecified body region Axel Avitia MD Work Phone: [phone]: 92-64-4842Voaxrjzj Philipgeovany Javier NIMCO Work Phone: [phone]: 20-63-0779Hsusi blood ph direct thea xcpt pulse oximitryPauline Maribel DO Work Phone: [phone]: 86-00-4731Ybrwdux quantitative blood xcpt reagent stripTonie Blankenship MD Work Phone: [phone]: 07-29-2024 End: 54-29-3890Vvtz fem shft fx w/insj imed implt w/wo Karmen Porter MD Work Phone: [phone]: 38-28-1939Xdymjlznxj exam chest single view Eugenia Clayton MD Work Phone: [phone]: 11-74-9892Skvglat quantitative blood xcpt reagent stripTonie Blankenship MD Work Phone: [phone]: 43-63-8418QJAAF/VERIFY ABORShaila Leyva PA-C Work Phone: [phone]: 35-11-1961Zcmmc function panelSnew Ngo Arun PA-C Work Phone: [phone]: 07-28-2024 End: 80-61-7231Rgqrfwhc blSheri Ngo Arun PA-C Work Phone: [phone]: 21-44-1185Etead count complete automated Josefina Ngo Arun PA-C Work Phone: [phone]: 38-34-9055Apcbm forearm 2 Kayode Avitia MD Work Phone: [phone]: 56-84-1904Renp tst prsmv instrmnt chem analyzers pr Matteo Kapadia MD Work Phone: [phone]: 52-24-8538Btytikgfrz endotracheal emergency procedurePauline Maribel DO Work Phone: [phone]: 59-56-0556Kshof of lactateTonie Blankenship MD Work Phone: [phone]: 79-86-1992Fdajifbwit exam chest single view Ailyn López DO Work Phone: [phone]: 61-26-9564Ssovboglrt examination femur minimum 2 viewsChet Kapadia MD Work Phone: [phone]: 95-14-6693Ui pelvis w/o contrast materialChet Kapadia MD Work Phone: [phone]: 48-31-8644Uc thorax w/contrast materialTonie Blankenship MD Work Phone: [phone]: 07-28-2024 End: 79-12-5009Uz cervical spine w/o contrast materialTonie Blankenship MD Work Phone: [phone]: 12-63-1844On head/brain w/o contrast material Tonie Blankenship MD Work Phone: [phone]: 30-86-4643Yzfhfzwjuy exam chest single viewTonie Blankenship MD Work Phone: [phone]: 58-17-6659Kjyxwpkoai examination pelvis 1/2 viewsTonie Blankenship MD Work Phone: [phone]: 07-28-2024 End: 01-54-0605Itysj of lactateTonie Blankenship MD Work Phone: [phone]: 19-84-2967Uelid typing serologic rh (d)Tonie Blankenship MD Work Phone: [phone]: 68-41-2505Tgftdhs [Mass/volume] in Serum or PlasmaTonie Blankenship MD Work Phone: [phone]: 95-57-5150WK ASSAY OF ACETAMINOPHEN - ACETAMINOPHEN LEVELTonie Blankenship MD Work Phone: [phone]: 83-92-6955AOHSU OXIMETRY, CONTINUOUSTonie Blankenship MD Work Phone: Start: 52-96-9332Oyhhvnat screen Plan of Treatment DateCare ActivityDetailAuthorStart: 14-79-6626Macqykjs (RZV) Vaccine (1 of 2) Shingles (RZV) Vaccine (1 of 2)MetroHealthStart: 69-03-8838Wlvtvp Vaccines (1 of 2)Zoster Vaccines (1 of 2)[facility]: 2044 [facility]: 08-98-0400BYyZ,Tdap and Td Vaccines (8 - Td or Tdap)DTaP,Tdap and Td Vaccines (8 - Td or Tdap)[facility] Start: 42-10-8463CRfH/Tdap/Td Vaccines (8 - Td or Tdap)DTaP/Tdap/Td Vaccines (8 - Td or Tdap)[facility]: 02-81-1898Etkrblt vaccinationTetanus (Td or Tdap) BoosterMetroHealthStart: 32-60-8446Ulooz microalbumin profileDTaP,Tdap,Td Vaccine (8 - Td or Tdap)[facility] Dublintart: 13-14-3881Cduztiv CounselingTobacco CounselingUNC Hospitals Hillsborough Campustart: 58-05-9536Scsiz BMI ScreeningAdult BMI ScreeningProWood County Hospitaltart: 26-28-1475Orlqilmaby ScreeningDepression ScreeningProWood County Hospitaltart: 25-62-9252Ibhtuhz ScreeningTobacco ScreeningProWood County Hospitaltart: 30-12-1494Rljaz BMI ScreeningAdult BMI ScreeningVeterans Health Administration SystemStart: 21-98-0890Ymopnsxlhd ScreeningDepression ScreeningProWood County Hospitaltart: 33-01-4716Wllcmwt ScreeningTobacco ScreeningUNC Hospitals Hillsborough Campustart: 09-16-2025 End: 01-14-4491Rxyfhma encounter ocdbitnfn37/15/2026 3:00 PM EST Office Visit [facility] [address] [place] [address] Valdo Olmedo APRN-ROMELIA [address] [place] [address] [facility] MedicineStart: 40-14-3939JPXXU-19 Vaccine ( season)COVID-19 Vaccine ( season)[facility] SystemStart: 06-75-9499Itwilfmow vaccinationInfluenza VaccineProPromedica [facility]ost[facility] SystemStart: 04-29-2025 End: 03-23-7759Suwcuki encounter wphmstizg76/28/2025 2:40 PM EDT Office Visit [facility] [address] [place] [address] Valdo Olmedo APRN-CNP [address] [place] [address] [facility] MedicineStart: 10-05-2024 End: 33-16-5194Wjvrpvg encounter jfjkjqagp71/03/2025 11:20 AM EST Office Visit [facility] [address] [place] [phone] Elizabet Cruz PA-C [address] Department of Orthopedics [place] [phone] [facility] CenterStart: 08-24-2024 End: 56-11-3407qkfnqqryhvTATrousdale Medical CenterStart: 08-24-2024 End: 52-89-2615Phxgxta encounter ijedflhpw20/23/2024 2:20 PM EST Office Visit [facility] [address] [address] Elizabet Cruz PA-C [address] [place] [address] [facility] CenterStart: 49-74-8115BLEOC-19 Vaccine ( season)COVID-19 Vaccine ( season)[facility] Start: 72-99-4996NDXGV-19 Vaccine ( season)COVID-19 Vaccine ( season)MetKettering Health SpringfieldStart: 93-98-0158Vrqjbvhdv vaccinationMetroCorey Hospital Start: 34-48-6435YbnomthqsjFulton County Health Centerart: 06-85-5561Kmalg-19 Vaccine ( season)Covid-19 Vaccine ( season)[facility] Dublintart: 27-57-8990Vlcheuzjc vaccinationInfluenza Vaccine (#1)[facility]intart: 93-50-7622Gdaowmdmwl AssessmentDepression AssessmentSelect Medical [facility] Rehabilitation Hospital - Dublintart: 88-68-7411Kevxhop vaccinationTetanus (Td or Tdap) Booster MetroHealthStart: 82-88-7449VJbC/Tdap/Td Vaccines (1 - Tdap)DTaP/Tdap/Td Vaccines (1 - Tdap)[facility]: 76-37-5665FogzpnrxviMiddletown Hospital: 14-18-0846Amtjsnygo A (HAV) Vaccine (optional start 19+ years)Hepatitis A (HAV) Vaccine (optional start 19+ years)MetroHealthStart: 49-15-1501Mabufsxhu A Vaccines (1 of 2 - Risk 2-dose series)Hepatitis A Vaccines (1 of 2 - Risk 2-dose series)[facility]: 70-53-5319Okuzloiaz B Vaccines (1 of 3 - 19+ 3-dose series)Hepatitis B Vaccines (1 of 3 - 19+ 3-dose series)[facility]: 2013 Pneumococcal vaccinationPneumococcal Vaccine(s) (1 of 2 - PCV)MetroHealthStart: 81-97-2822Azlxqlmbbslo Vaccine: Pediatrics and At-Risk Adult Patients (1 of 2 - PCV)Pneumococcal Vaccine: Pediatrics and At-Risk Adult Patients (1 of 2 - PCV) [facility]: 34-85-6848MejrygqlfqMiddletown Hospital: 30-88-5606Kcosr BMI Follow Up PlanAdult BMI Follow Up Plan [facility] [employer] (AM[employer]) [facility] Hospitaltart: 68-53-2451Pzolfgzxk C ScreeningHepatitis C ScreeningSelect Medical [facility] - Dublintart: 63-87-5433Kuevfsldd C screeningKettering Health Miamisburg Start: 29-01-5935TRC ScreeningHIV ScreeningSelect Medical [facility] Rehabilitation Hospital - Dublintart: 70-02-4985PQQ screeningHIV ScreeningSelect Medical [facility] Rehabilitation Hospital - Dublintart: 29-36-1924UGY Vaccine (2 - Male 3- dose series)HPV Vaccine (2 - Male 3-dose series)[facility]: 89-05-1433BFW Vaccines (2 - Male 3-dose series)HPV Vaccines (2 - Male 3-dose series)[facility]: 80-67-6089Uvrzkavjylx for human papillomavirusHPV Vaccine (2 - Male 3-dose series)[facility]: 2007 Varicella vaccinationUnMiddletown Hospital: 2000 Pneumococcal vaccinationSelect Medical [facility] Rehabilitation Hospital - Dublintart: 84-36-2564TBV Vaccines (1 of 1 - Standard series)MMR Vaccines (1 of 1 - Standard series)[facility]: 53-16-0325GyxnyxyybnMiddletown Hospital: 62-77-6964FDE screeningUnMiddletown Hospital: 69-61-7053Papso panelUnMiddletown Hospital: 59-70-6000Audfht Adult PhysicalYearly Adult PhysicalUnMiddletown Hospital: 41-14-7992VhxvrpzzzzGre[facility] End: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 promethazine (PHENERGAN) 25 mg tablet Take 1 tablet (25 mg total) by mouth every 6 (six) hours as needed for nausea or vomiting. (Patient not taking: Reported on 02/25/2025) 15 tablet 0 traZODone (DESYREL) 50 mg tablet Take 25 mg by mouth as needed for sleep. (Patient not taking: Reported on 02/25/2025) No current facility-administered medications on file prior to visit. Past Surgical History: Procedure Laterality Date FEMUR SURGERY Right 07/2024 Family History Problem Relation Age of Onset No Known Problems Mother Kidney disease Father The following portions of the patient's history were reviewed and updated as appropriate: allergies, current medications, past family history, past medical history, past social history, past surgicalhistory, problem list, and medication reconciliation was completed including current medication andpost discharge medication. Review of Systems Constitutional: Negative for chills, diaphoresis, fatigue, fever and unexpected weight change. HENT: Negative. Eyes: Negative. Respiratory: Negative. Negative for cough, chest tightness, shortness of breath and wheezing. Cardiovascular: Negative for chest pain, palpitations and leg swelling. Gastrointestinal: Positive for nausea (Nausea in the mornings and at night. Reports he has nausea often). Negative for abdominal pain and blood in stool. Endocrine: Negative. Genitourinary: Negative for dysuria and hematuria. Musculoskeletal: Positive for arthralgias and myalgias. Skin: Negative. Neurological: Negative for dizziness, syncope, weakness and light-headedness. Psychiatric/Behavioral: Positive for sleep disturbance. Negative for self-injury and suicidal ideas. Objective Physical Exam Vitals and nursing note reviewed. Constitutional: General: He is not in acute distress. Appearance: Normal appearance. He is well-developed. He is not ill-appearing. HENT: Head: Normocephalic and atraumatic. Right Ear: External ear normal. Left Ear: External ear normal. Nose: Nose normal. Mouth/Throat: Pharynx: Oropharynx is clear. Eyes: Extraocular Movements: Extraocular movements intact. Conjunctiva/sclera: Conjunctivae normal. Pupils: Pupils are equal, round, and reactive to light. Neck: Vascular: No carotid bruit. Cardiovascular: Rate and Rhythm: Normal rate and regular rhythm. Pulses: Normal pulses. Heart sounds: Normal heart sounds. No murmur heard. Pulmonary: Effort: Pulmonary effort is normal. No respiratory distress. Breath sounds: Normal breath sounds. No stridor. No wheezing, rhonchi or rales. Chest: Chest wall: No tenderness. Abdominal: General: Bowel sounds are normal. There is no distension. Palpations: Abdomen is soft. There is no mass. Tenderness: There is no abdominal tenderness. There is no guarding or rebound. Hernia: No hernia is present. Musculoskeletal: General: Normal range of motion. Cervical back: Normal range of motion and neck supple. No rigidity or tenderness. Right lower leg: No edema. Left lower leg: No edema. Lymphadenopathy: Cervical: No cervical adenopathy. Skin: General: Skin is warm and dry. Capillary Refill: Capillary refill takes less than 2 seconds. Findings: No erythema or rash. Neurological: General: No focal deficit present. Mental Status: He is alert and oriented to person, place, and time. Gait: Gait abnormal (since femur injury). Psychiatric: Mood and Affect: Mood normal. Behavior: Behavior normal. Assessment/Plan Sign CHRISTOPHER from previous provider. He must continue to follow up with [facility] for pain management. He reported taking diazepam for pain. The OARRS/MAPPS database was reviewed today and found to be appropriate. No indication of medication diversion, or non compliance. I told him I will not prescribe this medication. Refill trazodone for sleep. I will refill clonidine for combination restlessness and anxiety. Refill Robaxin p.r.n. for pain and muscle spasms To right leg. Discussed he can take Tylenol and ibuprofen as needed as well, Rx sent. We are going to trial reglan and protonix for nausea. I do not want him to continue Phenergan. He will let me know if this does not work for him. I also recommended counseling for anxiety and history of substance abuse, he declines need at this time. Follow up in 2 months for GERD and pain. Pineda was seen today for establish care. Diagnoses and all orders for this visit: Anxiety - Discontinue: cloNIDine (CATAPRES) 0.1 mg tablet; Take 1 tablet (0.1 mg total) by mouth 3 (three) times a day. - cloNIDine (CATAPRES) 0.1 mg tablet; Take 1 tablet (0.1 mg total) by mouth 3 (three) times a day. Encounter to establish care Hx of substance abuse ([facility] Hx of fracture of femur Muscle spasm of right leg Other orders - Discontinue: ibuprofen (MOTRIN) 800 mg tablet; Take 1 tablet (800 mg total) by mouth every 8 (eight) hours as needed for pain. - Discontinue: methocarbamoL (ROBAXIN) 750 mg tablet; Take 1 tablet (750 mg total) by mouth in the morning and 1 tablet (750 mg total) at noon and 1 tablet (750 mg total) before bedtime. Do all this for 30 days. - Discontinue: acetaminophen (TYLENOL EXTRA STRENGTH) 500 mg tablet; Take 2 tablets (1,000 mg total) by mouth every 6 (six) hours as needed for pain. - Discontinue: traZODone (DESYREL) 100 mg tablet; Take 1 tablet (100 mg total) by mouth nightly. - Discontinue: pantoprazole (PROTONIX) 40 mg EC tablet; Take 1 tablet (40 mg total) by mouth in themorning. - Discontinue: metoclopramide (REGLAN) 5 mg tablet; Take 1 tablet (5 mg total) by mouth every 6 (six) hours as needed (nausea) for up to 30 days. - acetaminophen (TYLENOL EXTRA STRENGTH) 500 mg tablet; Take 2 tablets (1,000 mg total) by mouth every 6 (six) hours as needed for pain. - ibuprofen (MOTRIN) 800 mg tablet; Take 1 tablet (800 mg total) by mouth every 8 (eight) hours as needed for pain. - methocarbamoL (ROBAXIN) 750 mg tablet; Take 1 tablet (750 mg total) by mouth in the morning and 1tablet (750 mg total) at noon and 1 tablet (750 mg total) before bedtime. Do all this for 30 days. - metoclopramide (REGLAN) 5 mg tablet; Take 1 tablet (5 mg total) by mouth every 6 (six) hours as needed (nausea) for up to 30 days. - pantoprazole (PROTONIX) 40 mg EC tablet; Take 1 tablet (40 mg total) by mouth in the morning. - traZODone (DESYREL) 100 mg tablet; Take 1 tablet (100 mg total) by mouth nightly. MERLE Chahal 02/28/25 1621 documented in this encounterKettering [facility]12-27-2024 Hospital Discharge instructions* Discharge Instructions* Dahiana Johnson MD - 08/28/2024 9:03 AM EST Do not share your medication with anyone. Extremity Injury Instructions: Return to the ED if you develop increased pain in your injured limb,loss of sensation, or change in color of the limb. Procedures done during this visit: None * Attachments The following attachments cannot be sent through Care Everywhere. * Femur Fracture Discharge Instructions (Monegasque) documented in this [id number] History of Present illness Narrative* Elizabet Cruz PA-C - 08/24/2024 2:40 PM EST Patient is a 28 y.o. male who is 4 weeks s/p IMN R femur and ORIF R hip. Date of surgery was 07/29/2024. Patient continues NWB RLE although he has been able to put the weight of his leg down on the ground when standing. He is asking for pain medicine refill today. He denies issues with incisions. Patient continues on ASA for DVT ppx. Patient denies fever or chills, N/T or calf pain. General: Alert and oriented x 3, NAD, respirations easy and unlabored with no audible wheezes, skinwarm and dry, speech and dress appropriate for noted age, affect euthymic. Musculoskeletal: RLE incisions c/d/i mild swelling to lower leg compartments soft no calf tenderness sensation intact to light touch motor intact including TA/GS/EHL palpable DP/PT pulses 2+ X-ray: Images of R hip and femur reviewed personally by me today and reveal maintenance of alignment of R femoral neck and femoral shaft fractures with hardware in position and no interval change. IMP: Problem List Items Addressed This Visit Traumatic closed displaced fracture of shaft of femur, right, initial encounter - Primary Relevant Medications oxyCODONE (Roxicodone) 5 mg immediate release tablet Other Relevant Orders Referral to Physical Therapy PLAN: His dino were removed today and steri strips applied. He may advance to PWB RLE at this time, PTcan then advance him to WBAT RLE and PT referral placed today. He will continue with his DVT ppx for another 2 weeks. I have e-scribed pain medicine refill, take as prescribed. I will see patient back in 4 weeks and I need x-rays right hip and right femur next visit. All questions were answered today. [facility] Work Phone: 1([phone]) 850-467412-22-2024 Hospital Discharge instructions* Discharge Instructions* MERLE Alejandra - 08/23/2024 8:58 AM EST --Keep follow up as scheduled 08/24 at 2:20 PM at [facility] Orthopedic clinic with JENNY Lee --Take Tylenol and/Ibuprofen as needed for pain --Ice knee 3 times a day --Elevate right leg, support above and below knee Return to the ER in the event you develop a fever, redness, drainage from surgical wounds or any other concerns arise * Attachments The following attachments cannot be sent through Care Everywhere. * Managing acute pain at home (Monegasque) * Muscle and Bone Pain Discharge Instructions (Monegasque) [facility] Work Phone: [phone]) 416-665612-22-2024 Emergency department Note* MERLE Alejandra - 08/23/2024 6:09 AM EST Images from the original note were not included. Emergency Department Encounter Patient: Pineda Hicks : 1995 Date of Evaluation: 08/23/2024 ED Provider: MERLE Alejandra CHIEF COMPLAINT: Chief Complaint Patient presents with Fall HPI : Limitations to History: Multiple MRNs (Charts to be merged) Historian: Self Records reviewed: EMR inpatient and outpatient notes, Care Everywhere Pineda Hicks is a 28-year-old male with history of polysubstance use disorder and recent traumatic right femur fracture s/p ORIF and IMN 07/29 who presents to the emergency department for evaluation following a mechanical fall. Patient states 2 days ago he slipped off his porch falling down approximately 4-5 steps landing on his left side, denies hitting head or loss of consciousness. Patient states he was able to get up independently without difficulty. Since fall he has noticed some increased pain in his right hip/femur and knee, pain is relatively persistent, rates discomfort 8/10, described as an uncomfortable feeling with intermittent sharp pains mainly with movement, pain is aggravatedby movement, denies relief with Oxycodone. Patient denies fever, chills, headache, lightheadedness or dizziness, chest pain, orthopnea, shortness of breath, wheezing, abdominal pain, GI or urinary symptoms. ROS: 14 systems reviewed and otherwise acutely negative except as in the [place]. PAST HISTORY: Past Medical History: Diagnosis Date [facility] Traumatic closed displaced fracture of shaft of right femur 07/29/2024 ORIF and IMN Past Surgical History: Procedure Laterality Date ORIF FEMUR FRACTURE Right 07/29/2024 INM Social History Socioeconomic History Marital status: Single Tobacco Use Smoking status: Every Day Smokeless tobacco: Never Vaping Use Vaping status: Every Day Substance and Sexual Activity Alcohol use: Not Currently Drug use: Yes Types: Crack cocaine, Oxycodone, Fentanyl, Marijuana MEDICATIONS/ALLERGIES: Previous Medications No medications on file No Known Allergies PHYSICAL EXAM: ED Triage Vitals [08/23/24 0522] Temperature Heart Rate Respirations BP 36.3 C (97.3 F) (!) 101 18 148/79 Pulse Ox Temp Source Heart Rate Source Patient Position 99 % Temporal Monitor Sitting BP Location FiO2 (%) Left arm -- Physical Exam VS reviewed GEN: Nontoxic-appearing white male in no acute distress. HEAD: Normocephalic. Atraumatic ENT: PERRL. EOMI. Nares patent without rhinorrhea. MMM. NECK: Supple. ROM intact. CHEST: Lungs clear to throughout, bilaterally. No wheezing, rhonchi, or rales. Speaking in full sentences HEART: Tachycardic. Normal S1, S2. No murmurs/rubs/gallops. ABD: Soft, non-surgical. No guarding, rebound tenderness or palpable mass. EXT: Pelvis stable. Right hip/upper leg with multiple surgical wounds with dino present and intact. Localized erythema around wound edges, no significant warmth or evidence of cellulitis. No drainage. 2 [id number] wounds noted to right knee, dino in place and intact. Wound over the medial aspectof the right knee with surrounding erythema, at about the fifth staple noted scant purulence when palpating knee, area was tender to palpation. Knee was slightly warm to the touch. No obvious abscessfelt. Range of motion limited at baseline. Moving BUE and BLE at baseline. NEURO: Alert, oriented, and appropriately interactive. No focal neurological deficits. PSYCH: Calm and cooperative. [place] . DIAGNOSTICS: Labs: Labs Reviewed CBC WITH AUTO DIFFERENTIAL BASIC METABOLIC PANEL SEDIMENTATION RATE, AUTOMATED C-REACTIVE PROTEIN Radiographs: XR knee right 4+ views Final Result Postsurgical changes status post ORIF the right femoral fracture as detailed above without evidence of gross complication. MACRO: None Signed by: Uday Dash 08/23/2024 8:20 AM Dictation workstation: [id number] XR femur right 2+ views Final Result Postsurgical changes status post ORIF the right femoral fracture as detailed above without evidence of gross complication. MACRO: None Signed by: Uday Dash 08/23/2024 8:20 AM Dictation workstation: [id number] XR pelvis 1-2 views Final Result Postsurgical changes status post ORIF the right femoral fracture as detailed above without evidence of gross complication. MACRO: None Signed by: Uday Dash 08/23/2024 8:20 AM Dictation workstation: [id number] ED COURSE: ED Course as of 08/23/24 0907 Sun Aug 23, 2024 0832 XR pelvis, RT femur and knee shows postsurgical changes status post ORIF right femoral fracture. Hardware without evidence of malalignment. Femoral neck pinning noted with 3 screws satisfactory appearance. Knee without large effusion. No acute fractures noted. [DL] ED Course User Index [DL] Misty Elder, COMPUTER SECURITY COORDINATOR-HAT CONE INSPECTOR Diagnoses as of 08/23/24 09 Fall, initial encounter Pain of right hip Pain of right thigh Visit Vitals BP 148/79 (BP Location: Left arm, Patient Position: Sitting) Pulse (!) 101 Temp 36.3 C (97.3 F) (Temporal) Resp 18 Ht 1.727 m (5' 8 ) Wt 77.1 kg (170 lb) SpO2 99% BMI 25.85 kg/m Smoking Status Every Day BSA 1.92 m Medications acetaminophen (Tylenol) tablet 975 mg (975 mg oral Given 08/23/24 0700) MDM: Pineda Hicks is a 28-year-old male with history of polysubstance use disorder and recent traumatic right femur fracture s/p ORIF and IMN 07/29 who presents to the emergency department for evaluation following a mechanical fall. Reviewed prior encounter and current encounter documentation (of note chart set to be merged refer to for additional documentation). Patient suffered a mechanical fall 2 days ago in which she slipped and fell down 4-5 steps off of his porch landing on his left side, complains of right hip/upper leg and knee pain, worsened with any movement, no relief with oxycodone at home. Due to recent surgery patient wanted to come get checked to make sure everything was okay. Patient does admit to recent relapse of his substance use history, admits to buying Oxycodone off the street. Reviewed vital signs, mildly tachycardic, otherwise afebrile. Physical exam as documented. Respiratory and cardiac exams unrevealing. Given lack of fever, mild tachycardia could be due to response of pain or due to recent relapse with no reported medication in the last 4 days. Right hip appears to be stable, multiple surgical wounds present with dino intact, localized erythema around wound edges, no purulence or tenderness to palpation. Right knee with 2 postoperative wounds with dino present. Wound overriding midline of right knee with localized erythema and mild edema, tenderness to palpation. Knee is not hot to the touch, though warm. When palpating knee did note some scant purulence from the medial aspect of the fifth staple. Range of motion is limited due to recent surgery. Mr. Hicks is in no apparent distress at this time. Given recent surgical repair, recent fall and physical exam findings I did recommend obtaining imaging to assess hardware, basic blood work and inflammatory markers. Per RN patient refused IV and blood work. Patient medicated with Tylenol. Refer to ED course for imaging interpretation. Based on imaging I do have low suspicion for underlying infection though proceeding with laboratory studies could have provided a better picture. Patient has orthopedic surgery follow-up tomorrow. Patient reevaluated and updated with results. Discharged home with recommendations to keep appointment with orthopedic surgery as scheduled, [id number] Tylenol and/or ibuprofen as needed for pain, ice the knee 3 times a day, elevate right lower extremity with supporting above and below knee, strict precautions were explained. Patient acknowledged and amenable to plan. FINAL IMPRESSION: 1. Fall, initial encounter 2. Pain of right hip 3. Pain of right thigh DISPOSITION: Disposition: Discharged Patient condition is: Stable See follow-up recommendations above Misty Elder III, CNP Emergency Medicine [facility] Disclaimer: This note was dictated using a speech recognition program. While an attempt was made atproof reading to minimize errors, minor errors in silk examiner may be present MERLE Alejandra 08/23/24 0909 * Yissel Valle RN - 08/23/2024 5:15 AM EST Pt came into the ED d/t a fall off his porch stairs. Pt stated he had surgery about a month ago on fractured right femur. Pt wanted to be seen to make sure he did not hurt anything on his healing leg. Pt stated he did not lose consciousness and fell on left shoulder and hip. Pt walks with crutches after surgery. Pt is AxOx4. VSS. documented in this [facility] Work Phone: 1(685) 136-191812-22-2024 Physician Emergency department Note* MERLE Alejandra - 08/23/2024 6:09 AM EST Images from the original note were not included. Emergency Department Encounter Patient: Pineda Hicks : 1995 Date of Evaluation: 08/23/2024 ED Provider: MERLE Alejandra CHIEF COMPLAINT: Chief Complaint Patient presents with Fall HPI : Limitations to History: Multiple MRNs (Charts to be merged) Historian: Self Records reviewed: EMR inpatient and outpatient notes, Care Everywhere Pineda Hicks is a 28-year-old male with history of polysubstance use disorder and recent traumatic right femur fracture s/p ORIF and IMN 07/29 who presents to the emergency department for evaluation following a mechanical fall. Patient states 2 days ago he slipped off his porch falling down approximately 4-5 steps landing on his left side, denies hitting head or loss of consciousness. Patient states he was able to get up independently without difficulty. Since fall he has noticed some increased pain in his right hip/femur and knee, pain is relatively persistent, rates discomfort 8/10, described as an uncomfortable feeling with intermittent sharp pains mainly with movement, pain is aggravatedby movement, denies relief with Oxycodone. Patient denies fever, chills, headache, lightheadedness or dizziness, chest pain, orthopnea, shortness of breath, wheezing, abdominal pain, GI or urinary symptoms. ROS: 14 systems reviewed and otherwise acutely negative except as in the [place]. PAST HISTORY: Past Medical History: Diagnosis Date Polysubstance use disorder Admits to [facility] as of 08/23 Traumatic closed displaced fracture of shaft of right femur 07/29/2024 ORIF and IMN Past Surgical History: Procedure Laterality Date ORIF FEMUR FRACTURE Right 07/29/2024 INM Social History Socioeconomic History Marital status: Single Tobacco Use Smoking status: Every Day Smokeless tobacco: Never Vaping Use Vaping status: Every Day Substance and Sexual Activity Alcohol use: Not Currently Drug use: Yes Types: Crack cocaine, Oxycodone, Fentanyl, Marijuana MEDICATIONS/ALLERGIES: Previous Medications No medications on file No Known Allergies PHYSICAL EXAM: ED Triage Vitals [08/23/24 0522] Temperature Heart Rate Respirations BP 36.3 C (97.3 F) (!) 101 18 148/79 Pulse Ox Temp Source Heart Rate Source Patient Position 99 % Temporal Monitor Sitting BP Location FiO2 (%) Left arm -- Physical Exam VS reviewed GEN: Nontoxic-appearing white male in no acute distress. HEAD: Normocephalic. Atraumatic ENT: PERRL. EOMI. Nares patent without rhinorrhea. MMM. NECK: Supple. ROM intact. CHEST: Lungs clear to throughout, bilaterally. No wheezing, rhonchi, or rales. Speaking in full sentences HEART: Tachycardic. Normal S1, S2. No murmurs/rubs/gallops. ABD: Soft, non-surgical. No guarding, rebound tenderness or palpable mass. EXT: Pelvis stable. Right hip/upper leg with multiple surgical wounds with dino present and intact. Localized erythema around wound edges, no significant warmth or evidence of cellulitis. No drainage. 2 [id number] wounds noted to right knee, dino in place and intact. Wound over the medial aspectof the right knee with surrounding erythema, at about the fifth staple noted scant purulence when palpating knee, area was tender to palpation. Knee was slightly warm to the touch. No obvious abscessfelt. Range of motion limited at baseline. Moving BUE and BLE at baseline. NEURO: Alert, oriented, and appropriately interactive. No focal neurological deficits. PSYCH: Calm and cooperative. [place] . DIAGNOSTICS: Labs: Labs Reviewed CBC WITH AUTO DIFFERENTIAL BASIC METABOLIC PANEL SEDIMENTATION RATE, AUTOMATED C-REACTIVE PROTEIN Radiographs: XR knee right 4+ views Final Result Postsurgical changes status post ORIF the right femoral fracture as detailed above without evidence of gross complication. MACRO: None Signed by: Uday Dash 08/23/2024 8:20 AM Dictation workstation: [id number] XR femur right 2+ views Final Result Postsurgical changes status post ORIF the right femoral fracture as detailed above without evidence of gross complication. MACRO: None Signed by: Uday Dash 08/23/2024 8:20 AM Dictation workstation: [id number] XR pelvis 1-2 views Final Result Postsurgical changes status post ORIF the right femoral fracture as detailed above without evidence of gross complication. MACRO: None Signed by: Uday Dash 08/23/2024 8:20 AM Dictation workstation: [id number] ED COURSE: ED Course as of 08/23/24 0907 Sun Aug 23, 2024 0832 XR pelvis, RT femur and knee shows postsurgical changes status post ORIF right femoral fracture. Hardware without evidence of malalignment. Femoral neck pinning noted with 3 screws satisfactory appearance. Knee without large effusion. No acute fractures noted. [DL] ED Course User Index [DL] Misty Elder, COMPUTER SECURITY COORDINATOR-HAT CONE INSPECTOR Diagnoses as of 08/23/24 09 Fall, initial encounter Pain of right hip Pain of right thigh Visit Vitals BP 148/79 (BP Location: Left arm, Patient Position: Sitting) Pulse (!) 101 Temp 36.3 C (97.3 F) (Temporal) Resp 18 Ht 1.727 m (5' 8 ) Wt 77.1 kg (170 lb) SpO2 99% BMI 25.85 kg/m Smoking Status Every Day BSA 1.92 m Medications acetaminophen (Tylenol) tablet 975 mg (975 mg oral Given 08/23/24 0700) MDM: Pineda Hicks is a 28-year-old male with history of polysubstance use disorder and recent traumatic right femur fracture s/p ORIF and IMN 07/29 who presents to the emergency department for evaluation following a mechanical fall. Reviewed prior encounter and current encounter documentation (of note chart set to be merged refer to for additional documentation). Patient suffered a mechanical fall 2 days ago in which she slipped and fell down 4-5 steps off of his porch landing on his left side, complains of right hip/upper leg and knee pain, worsened with any movement, no relief with oxycodone at home. Due to recent surgery patient wanted to come get checked to make sure everything was okay. Patient does admit to recent relapse of his substance use history, admits to buying Oxycodone off the street. Reviewed vital signs, mildly tachycardic, otherwise afebrile. Physical exam as documented. Respiratory and cardiac exams unrevealing. Given lack of fever, mild tachycardia could be due to response of pain or due to recent relapse with no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 12 hours, First dose on 08/09/24 at 2100, Indications: deep vein thrombosis prevention * 0956 (Given - Provider: Ivana Kan RN) * 2053 (Given - Provider: Caterina Sena RN) * 0828 (Given - Provider: Luann Willams RN) * 2020 (Given - Provider: Emiliana Mayer RN) * 0838 (Given - Provider: Elvie Hill, AFSANEH) * 2100 (Due) gabapentin (Neurontin) capsule 600 mg 600 mg, oral, 3 times daily, First dose on 08/09/24 at 1730, Capsules may be opened and sprinkled on food (eg, applesauce, orange juice, pudding * 0955 (Given - Provider: Ivana Kan RN) * 1417 (Given - Provider: Ivana Kan RN) * 2055 (Given - Provider: Caterina Sena RN) * 0828 (Given - Provider: Luann Willams RN) * 142 (Given - Provider: Luann Willams RN) * 2021 (Given - Provider: Emiliana Mayer RN) * 0838 (Given - Provider: Elvie Hill RN) * 1500 (Due) * 2100 (Due) ibuprofen tablet 600 mg 600 mg, oral, Every 6 hours, First dose on 08/09/24 at 1900, May administer with food to reduce GI upset. * 0017 (Given - Provider: Caterina Sena RN) * 0615 (Given - Provider: Caterina Sena RN) * 1323 (Given - Provider: Ivana Kan RN) * 1901 (Given - Provider: Ivana Kan RN) * 0000 (Given - Provider: Caterina Sena RN) * 0603 (Given - Provider: Caterina Sena RN) * 1258 (Given - Provider: Luann Willams RN) * 1811 (Given - Provider: Luann Willams RN) * 0025 (Given - Provider: Emiliana Mayer RN) * 0627 (Given - Provider: Emiliana Mayer RN) * 1300 (Due) * 1900 (Due) lidocaine 4 % patch 1 patch 1 patch, transdermal, Administer over 12 Hours, Daily, First dose on 08/09/24 at 1730, Apply to affected area. Patch will remain on for 12 hours, then removed for [address] patch directly over any surgical incisions or wounds. * 0842 (Not Given - Provider: Ivana Kan RN - Reason: Patient/family refused) * 0830 (Not Given - Provider: Luann Willams RN - Reason: Patient/family refused) * 0839 (Not Given - Provider: Elvie Hill RN - Reason: Patient/family refused) methocarbamol (Robaxin) tablet 1,000 mg 1,000 mg, oral, Every 8 hours scheduled, First dose on 08/09/24 at 1730 * 0503 (Given - Provider: Caterina Sena RN) * 1417 (Given - Provider: Ivana Kan RN) * 2101 (Given - Provider: Caterina Sena RN) * 0523 (Given - Provider: Caterina Sena RN) * 1303 (Given - Provider: uLann Willams RN) * 2106 (Given - Provider: Emiliana Mayer RN) * 0627 (Given - Provider: Emiliana Mayer RN) * 1400 (Due) * 2200 (Due) nicotine (Nicoderm CQ) 14 mg/24 hr patch 1 patch 1 patch, transdermal, Administer over 24 Hours, Daily, First dose on 08/09/24 at 1730 * 0842 (Not Given - Provider: Ivana Kan RN - Reason: Patient/family refused) * 0830 (Not Given - Provider: Luann Willams RN - Reason: Patient/family refused) * 0839 (Not Given - Provider: Elvie Hill RN - Reason: Patient/family refused) polyethylene glycol (Glycolax, Miralax) packet 17 g 17 g, oral, 2 times daily, First dose on 08/09/24 at 2100 * 0843 (Not Given - Provider: Ivana Kan RN - Reason: Patient/family refused) * 2056 (Not Given - Provider: Caterina Sena RN - Reason: Patient/family refused) * 0832 (Not Given - Provider: Luann Willams RN - Reason: Patient/family refused) * 2022 (Not Given - Provider: Emiliana Mayer RN - Reason: Patient/family refused) * 0839 (Not Given - Provider: Elvie Hill RN - Reason: Patient/family refused) * 2099 (Due) sennosides (Senokot) tablet 8.6 mg 8.6 mg (1 tablet), oral, 2 times daily, First dose on 08/09/24 at 2100 * 0843 (Not Given - Provider: Ivana Kan RN - Reason: Patient/family refused) * 2056 (Not Given - Provider: Caterina Sena RN - Reason: Patient/family refused) * 0832 (Not Given - Provider: Luann Willams RN - Reason: Patient/family refused) * 2022 (Not Given - Provider: Emiliana Mayer RN - Reason: Patient/family refused) * 0840 (Not Given - Provider: Elvie Hill RN - Reason: Patient/family refused) * 2099 (Due) traZODone (Desyrel) tablet 50 mg 50 mg, oral, Nightly, First dose on 08/09/24 at 2100 * 2055 (Given - Provider: Caterina Sena RN) * 2021 (Given - Provider: Emiliana Mayer RN) * 2100 (Due) Medication Order08/16/20230903// acetaminophen (Tylenol) oral liquid 650 mg(Linked Group 1) 650 mg, oral, Every 4 hours PRN, pain mild (1-3), first line, or fever greater than 38 C, Starting on 08/09/24 at 1855 acetaminophen (Tylenol) tablet 650 mg(Linked Group 1) 650 mg, oral, Every 4 hours PRN, pain mild (1-3), first line, or fever greater than 38 C, Starting on 08/09/24 at 1855, If ordered PRN for pain, nurse is permitted to administer this medication for higher pain scores based on patient preference? Yes alum-mag hydroxide-simeth (Maalox MAX) 400-400-40 mg/5 mL suspension 30 mL 30 mL, oral, Every 6 hours PRN, indigestion, heartburn, Dyspepsia, Starting on 08/09/24 at 1855 bisacodyl (Dulcolax) EC tablet 10 mg 10 mg, oral, Daily PRN, constipation, first line, Starting on 08/09/24 at 1855, 1st line for treatment of constipation - contact provider if no bowel movement in past 48 hours. Do not crush, chew,or split. guaiFENesin (Mucinex) 12 hr tablet 600 mg 600 mg, oral, 2 times daily PRN, cough, Starting on 08/15/24 at 2221, Administer with plenty offluids to ensure proper action. Do not crush, chew, or split. methyl salicylate-menthol (Bengay) 15-10 % greaseless cream 1 Application 1 Application, Topical, 3 times daily PRN, pain mild (1-3), first line, Starting on 08/09/24 at 1708, Apply to affected area naloxone (Narcan) injection 0.2 mg 0.2 mg, intravenous, As needed, respiratory depression, Once PRN patient is unarousable, and respiratory rate less than 8, Starting on 08/09/24 at 1708 oxyCODONE (Roxicodone) immediate release tablet 10 mg 10 mg, oral, Every 4 hours PRN, pain severe (7-10), first line, Starting on 08/09/24 at 1709, Indications: pain * 0453 (Given - Provider: Caterina Sena, RN) * 0955 (Given - Provider: Ivana Kan, RN) * 1527 (Given - Provider: Ivana Kan RN) * 2054 (Given - Provider: Caterina Sena RN) * 0523 (Given - Provider: Caterina Sena RN) * 142 (Given - Provider: Luann Willams, AFSANEH) * 2020 (Given - Provider: Emiliana Mayer, RN) * 0025 (Given - Provider: Emiliana Mayer, AFSANEH) * 0627 (Given - Provider: Emiliana Mayer, AFSANEH) oxyCODONE (Roxicodone) immediate release tablet 7.5 mg 7.5 mg, oral, Every 4 hours PRN, pain severe (7-10), second line, Starting on 08/09/24 at 1709, Indications: pain polyethylene glycol (Glycolax, Miralax) packet 17 g 17 g, oral, Daily PRN, constipation, Starting on 08/09/24 at 1855, Bowel Regimen - for prevention of constipation. promethazine (Phenergan) tablet 12.5 mg 12.5 mg, oral, Every 6 hours PRN, nausea/vomiting, first line, Starting on 08/09/24 at 1709 * 0831 (Given - Provider: Luann Willams RN) Order Group 1: acetaminophen (Tylenol) oral liquid 650 mgJump to med 650 mg, oral, Every 4 hours PRN, pain mild (1-3), first line, or fever greater than 38 C, Starting on 08/09/24 at 1855 Or acetaminophen (Tylenol) tablet 650 mgJump to med 650 mg, oral, Every 4 hours PRN, pain mild (1-3), first line, or fever greater than 38 C, Starting on 08/09/24 at 1855, If ordered PRN for pain, nurse is permitted to administer this medication for higher pain scores based on patient preference? Yes Medication Order// acetaminophen (Tylenol) tablet 975 mg (COMPLETED) 975 mg, oral, Once, On 08/23/24 at 0700, For 1 dose, If ordered PRN for pain, nurse is permitted to administer this medication for higher pain scores based on patient preference? Yes * 0700 (Given - Provider: Minda Nash LPN) Medication Order// oxyCODONE immediate release tablet (COMPLETED) 10 mg, Oral, Once, 1 dose, On Sat08/28/24 at 0932 * 0913 (Given - Provider: Mercedes Eli RN) FOR RECORDS PERTAINING TO PATIENTS WHO ARE OR HAVE BEEN ENROLLED IN A CHEMICAL DEPENDENCY/SUBSTANCEABUSE PROGRAM, SOME INFORMATION MAY BE OMITTED. This clinical summary was aggregated from multiple sources. Caution should be exercised in using it in the provision of clinical care. This summary normalizes information from multiple sources, and as a consequence, information in this document may materially change the coding, format and clinical context of patient data. In addition, data may be omitted in some cases. CLINICAL DECISIONS SHOULD BE BASED ON THE PRIMARY CLINICAL RECORDS. [employer] [facility]. provides no warranty or guarantee of the accuracy or completeness of information in this document.
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
== END 2025-06-30 13:03 | disposition home or self-care (01) ==
LOC: PM 13:03
PROVIDERS: Visit Provider Nurse Practitioner
DX: M79.604 Pain in right leg (principal); Z51.81 Encounter for therapeutic drug level monitoring; M79.18 Myalgia, other site; G89.4 Chronic pain syndrome
CPT/HCPCS: G0463